=== PATIENT | female | born 1980 | race Two or more races ===

== ENCOUNTER 2025-02-06 08:52 | Inpatient (IN) | payer MEDICAID, OTHER ==
[2025-02-06] VITALS (21 sets, daily range): BP systolic 84–114; BP diastolic 47–77; PULSE 52–116; RESP 12–25; TEMP 97.8–98.7; O2SAT 94–97
[~2025-02-06] VITALS: Ht 165.1 cm; Wt 132.6 kg
--- NOTE | 2025-02-06 09:28 | ED.PDOC ---
GI ASSESSMENT HPI Comments This is a 44 year old female presenting to the ED with chief complaint of abdominal pain. Patient reports that she has been experiencing diffuse abdominal pain with associated dysuria and difficulty urinating since last night at 8pm. Patient relays that she has taken Tylenol and Morris with no relief noted. EMS states patient is tachycardic at a heart rate of 118 along with having a BG of 197. Patient denies any N/V/D, fever, chills, dizziness, chest pain, flank pain, or hematuria. Time Seen by MD: 09:25 Reviewed Notes: Nurses Notes, Ms Sql Developer Notes, Medications, Allergies Allergies: Coded Allergies: NO KNOWN ALLERGIES (Unverified , 02/06/25) Information Source: Patient, Emergency Med Personnel Mode of Arrival: EMS Timing: Hours Duration: Since onset Prehospital treatment: None Quality: Sharp Vomitus: None Stool: Normal Severity: Moderate Recent: None Recent Hx of: None Pain Location: Diffuse Modifying Factors: Nothing Associated sign and symptoms: Abdominal Pain Past Medical History PAST MEDICAL HISTORY: Anxiety, Asthma, Depression, DM, HTN Past Medical History (Other): Endocarditis Surgical History: Cholecystectomy Surgical History (Other): Aortic valve repair SENIOR GROUP MANAGER History: Denies all SENIOR GROUP MANAGER Hx, No Pertinent SENIOR GROUP MANAGER History Family History Family History: Reviewed,noncontributory to illness Social History Smoker: Non-Smoker Alcohol: Denies ETOH Use Drugs: Denies Drug Use Lives In: Home Constitutional: denies: chills, diaphoresis, fatigue, fever, malaise, sweats, weakness, others EENTM: denies: blurred vision, double vision, ear bleeding, ear discharge, ear drainage, ear pain, ear ringing, eye pain, eye redness, hearing loss, mouth pain, mouth swelling, nasal discharge, nose bleeding, nose congestion, nose pain, photophobia, tearing, throat pain, throat swelling, voice changes, others Respiratory: denies: cough, hemoptysis, orthopnea, SOB at rest, shortness of breath, SOB with excertion, stridor, wheezing, others Cardiovascular: denies: chest pain, dizzy spells, diaphoresis, Dyspnea on exertion, edema, irregular heart beat, left arm pain, lightheadedness, palpitations, PND, syncope, others Gastrointestinal: reports: abdominal pain; denies: abdomen distended, blood streaked bowels, constipated, diarrhea, dysphagia, difficulty swallowing, hematemesis, melena, nausea, poor appetite, poor fluid intake, rectal bleeding, rectal pain, vomiting, others Genitourinary: reports: dysuria, others (Difficulty urinating); denies: a bnormal vagina bleeding, burning, dyspareunia, flank pain, frequency, hematuria, incontinence, pain, , vagina discharge, urgency Neurological: denies: dizziness, fainting, headache, left sided numbness, left sided weakness, numbness, paresthesia, pre-existing deficit, right sided numbness, right sided weakness, seizure, speech problems, tingling, tremors, weakness, others Musculoskeletal: denies: back pain, gout, joint pain, joint swelling, muscle pain, muscle stiffness, neck pain, others Integumetry: denies: bruises, change in color, change in hair/nails, dryness, laceration, lesions, lumps, rash, wounds, others Allergic/Immunocompromised: denies: Difficulty Healing, Frequent Infections, Hives, Itching, others Hematologic/Lymphatic: denies: anemia, blood clots, easy bleeding, easy bruising, swollen glands, others Endocrine: denies: excessive hunger, excessive sweating, excessive thirst, excessive urination, flushing, intolerance to cold, intolerance to heat, unexplained weight gain, unexplained weight loss, others Psychiatric: denies: anxiety, bipolar disorder, depression, hopeless, panic disorder, schizophrenia, sleepless, suicidal, others All Other Systems: Reviewed and Negative Physical Exam General Appearance: Moderate Distress, No Apparent Distress, Obese HEENT: Normal ENT Inspection, Pharynx Normal, TMs Normal Neck: Full Range of Motion, Non-Tender, Normal, Normal Inspection Respiratory: Chest Non-Tender, Lungs Clear, No Accessory Muscle Use, No Respiratory Distress, Normal Breath Sounds Cardiovascular: No Edema, No JVD, No Murmur, No Gallop, Normal Peripheral Pulses, Regular Rate/Rhythm Breast Exam: Deferred Gastrointestinal: No Organomegaly, Non Tender, No Pulsatile Mass, Normal Bowel Sounds, Soft Genitalia: Deferred Pelvic: Deferred Rectal: Deferred Extremities: No calf tenderness, Normal capillary refill, Non-tender, No pedal edema, Other (Old right below-knee amputation) Musculoskeletal : Apperance: Normal Neurologic: Alert, photocopying equipment mechanic II-XII nml as Tested, No Motor Deficits, Normal Affect, Normal Mood, No Sensory Deficits Cerebellar Function: NOT DONE Reflexes: NOT DONE Skin: Dry, Normal Color, Warm Peripheral Pulses: 3+ Radial (R), 3+ Radial (L) Lymphatic: No Adenopathy Was a procedure done? Was a procedure done?: No GI differential Dx Differential Diagnosis: Constipation, Diverticular disease, Esophagitis, Gastritis/PUD, Gastroenteritis X-Ray, Labs, Meds, VS Vital Signs Date Time Temp Pulse Resp B/P (MAP) Pulse Ox O2 Delivery O2 Flow Rate FiO2 02/06/25 09:50 87 12 104/47 02/06/25 08:54 98.4 115 20 121/76 96 98.4 Lab Test 02/06/25 09:59 Range/Units White Blood Count 18.1 H 4.4-10.8 10^3/uL Red Blood Count 4.48 4.0-5.20 10^6/uL Hemoglobin 14.4 12.2-16.2 g/dL Hematocrit 43.2 36.0-46.0 % Mean Corpuscular Volume 96.4 80.0-100.0 fL Mean Corpuscular Hemoglobin 32.1 H 28.0-32.0 pg Mean Corpuscular Hemoglobin Concent 33.3 32.0-36.0 g/dL Red Cell Distribution Width 14.6 H 11.8-14.3 % Platelet Count 237 140-450 10^3/uL Mean Platelet Volume 10.4 6.9-10.8 fL Neutrophils (%) (Auto) 87.1 H 37.0-80.0 % Lymphocytes (%) (Auto) 8.0 L 10.0-50.0 % Monocytes (%) (Auto) 4.6 0.0-12.0 % Eosinophils (%) (Auto) 0.1 0.0-7.0 % Basophils (%) (Auto) 0.2 0.0-2.0 % Neutrophils # (Auto) 15.8 H 1.6-8.6 10 ^3/uL Lymphocytes # (Auto) 1.5 0.4-5.4 10 ^3/uL Monocytes # (Auto) 0.8 0-1.3 10 ^3/uL Eosinophils # (Auto) 0 0-0.8 10 ^3/uL Basophils # (Auto) 0 0-0.2 10 ^3/uL Nucleated Red Blood Cells 0.1 % Sodium Level Pending Potassium Level Pending Chloride Level Pending Carbon Dioxide Level Pending Anion Gap Pending Blood Urea Nitrogen Pending Creatinine Pending Glomerular Filtration Rate Calc Pending BUN/Creatinine Ratio Pending Serum Glucose Pending Calcium Level Pending Total Bilirubin Pending Aspartate Amino Transferase (AST) Pending Alanine Aminotransferase (ALT) Pending Alkaline Phosphatase Pending Troponin I High Sensitivity 11 </=34 ng/L Total Protein Pending Albumin Pending Current Medications Medications (Trade) Dose Ordered Sig/Mario Route Start Time Stop Time Status Last Admin Hydromorphone HCl (Dilaudid Injection) 1 mg ONCE ONCE IV 02/06/25 09:30 02/06/25 09:31 DC 02/06/25 09:50 Ondansetron HCl (Zofran) 4 mg ONCE ONCE IV 02/06/25 09:30 02/06/25 09:31 DC 02/06/25 09:41 Patient alert. Complaining of abdominal pain. Vitals stable. Answering questions. Blood pressure on the low side. WBC elevated pain Hemoglobin within normal limits. Hypotensive. Establish intravenous access. Was given fluids. Possible sepsis. Was given Zosyn. Was given Flagyl. Cardiac marker within normal limits. Explained to the patient. Continue monitoring. Time of 1ST Reevaluation: :23 Reevaluation 1ST: Unchanged Patient Education/Counseling: Diagnosis, Treatment Family Education/Counseling: No Family Present SEPSIS Sepsis Screen Physician Orders Comprehensive Metabolic Panel (02/06/25 09:28) Chest Portable (02/06/25 09:28) Urinalysis (02/06/25 09:28) Sodium Chloride 0.9% (02/06/25 10:00) Ct Ab Pel Wo Con-No Oral Or Iv (02/06/25 10:18) Blood Culture (02/06/25 10:18) Lactic Acid W/ Reflex Order (02/06/25 10:18) Piperacillin-Tazob 3.375gm (Zosyn 3.375g (02/06/25 10:30) Sodium Chloride 0.9% (02/06/25 10:30) Sodium Chloride 0.9% (02/06/25 10:30) Vital Signs Date Time Temp Pulse Resp B/P (MAP) Pulse Ox O2 Delivery O2 Flow Rate FiO2 02/06/25 09:50 87 12 104/47 02/06/25 08:54 98.4 115 20 121/76 96 98.4 Laboratory Tests Test 02/06/25 09:59 White Blood Count 18.1 10^3/uL (4.4-10.8) H Medications Medications Dose Ordered Sig/Mario Route Start Time Stop Time Status Last Admin Dose Admin Hydromorphone HCl 1 mg ONCE ONCE IV 02/06/25 09:30 02/06/25 09:31 DC 02/06/25 09:50 Ondansetron HCl 4 mg ONCE ONCE IV 02/06/25 09:30 02/06/25 09:31 DC 02/06/25 09:41 Departure 1 Departure Time of Disposition: 10:43 Impression: Primary Impression: Sepsis, unspecified organism Qualified Codes: A41.9 - Sepsis, unspecified organism Disposition: ADMITTED INPATIENT Admit to: Med Surg Condition: Guarded Critical Care Note Critical Care Time?: Yes (90 min-critical care time only) Stability Stability form required: No Heart Score Heart Score: Heart Score Response (Comments) Value History N/A 0 EKG N/A 0 Age N/A 0 Risk Factors N/A 0 Troponin N/A 0 Total 0 I personally scribed for ESPERANZA HARO MD ([email or web address]) on 02/06/25 at 09:28. Electronically submitted by David Murphy ([email or web address]). ESPERANZA HARO MD Feb 06, 2025 09:28
[2025-02-06] MEDS: ONDANSETRON HCL 4 MG/2 ML VIAL IV ONE (09:41)
[2025-02-06] MEDS: HYDROmorphone HCL 2 MG/ML VL/or syr IV ONE ×2 (09:50→15:24)
--- NOTE | 2025-02-06 10:02 | DVH ---
INDICATION: sob TECHNIQUE: Frontal view of the chest. COMPARISON: CT ANGIO CHEST - PULMONARY on DOS: 04/10/24, XR CHEST 1 VIEW on DOS: 04/10/24 FINDINGS: Cardiomegaly.. There is no evidence of pleural disease. Increased interstitial opacities. The bon y structures of the chest are intact without fracture. IMPRESSION: 1. Cardiomegaly with CHF.
[2025-02-06 10:26] LABS: Hematocrit 43.2 % (36.0-46.0); Hemoglobin 14.4 g/dL (12.2-16.2); Mean Corpuscular Hemoglobin 32.1 pg (28.0-32.0); Mean Corpuscular Volume 96.4 fL (80.0-100.0); Nucleated Red Blood Cells % 0.1 %
[2025-02-06] MEDS: SODIUM CHLORIDE 0.9% 1,000 ML IV ONE ×3 (10:30→12:16)
[2025-02-06 10:59] LABS: Alanine Aminotransferase 17 U/L (7-40); Albumin 4.0 g/dL (3.2-4.8); Alkaline Phosphatase 109 U/L (46-116); Anion Gap 8 (5-15); BUN/Creatinine Ratio 21.3 (10.0-20.0); Calcium 9.5 mg/dL (8.7-10.4); Carbon Dioxide 26 mmol/L (20-31); Chloride 102 mmol/L (98-107); Potassium 3.8 mmol/L (3.5-5.1); Sodium 136 mmol/L (136-145); Total Protein 7.0 g/dL (5.7-8.2)
[2025-02-06 11:00] LABS: Bilirubin, Total 0.5 mg/dL (0.2-1.0)
[2025-02-06 11:01] LABS: Blood Urea Nitrogen 23 mg/dL (9-23); Glucose 180 mg/dL (74-106)
[2025-02-06] MEDS: PIPERACILLIN-TAZOB 3.375GM 100 ML IV ONE (11:17)
--- NOTE | 2025-02-06 11:19 | DVH ---
Indication: colitis Technique: CT axial images of the abdomen and pelvis are obtained without contrast. Coronal and sagit sofia reformats were obtained. Comparison: CT ABD/PEL on DOS: 04/10/24 FINDINGS: There is limited interpretation of the abdomen and pelvis without administration of intravenous contr ast. Lung bases demonstrate atelectasis. Aortic valvular prosthesis. Adrenal glands demonstrate 1.4 cm right adrenal adenoma and 1.5 cm left adrenal adenoma. Spleen, panc reas unremarkable in shape. Cholecystectomy. Hepatic steatosis. The kidneys demonstrate no nephrolithiasis. [id number] right hydronephrosis with abrupt taperi ng of the proximal right ureter. Stomach is partially distended. Small bowel loops are normal in caliber. Moderate volume stool in the colon. Normal appendix. Bladder partially distended. Left ovarian/adnexal lesion measuring 6 cm. Lower uterine lesion measuri ng 6.2 x 5.9 cm. No free pelvic fluid. No inguinal lymphadenopathy. [id number] bilateral sacroiliac degenerative joint disease. Moderate to advanced lumbar degener ative disc disease. T10 butterfly vertebral body. IMPRESSION: Limited evaluation without contrast. [id number]-[id number] right hydronephrosis with abrupt tapering of the proximal right ureter. Recommend ur ology consultation to further evaluate exclude UPJ stricture, obstructing proximal ureteral lesion. Left ovarian/adnexal lesion measuring 6 cm. Recommend pelvic ultrasound to further evaluate. Lower uterine/ cervical lesion/mass measuring 6.2 cm. Recommend pelvic ultrasound and regional director of admissions consultati on. Moderate volume stool in the colon. Other findings as described
[2025-02-06] MEDS: KETOROLAC TROMETH 30 MG/ML 1ML VIAL IV ONE (12:22)
[2025-02-06] MEDS: NOREPINEPHRINE 8 MG/250ML KIT 250 ML IV SCH (14:48)
--- NOTE | 2025-02-06 14:58 | DVH ---
INDICATION: ovarymass TECHNIQUE: Multiple real-time grayscale transabdominal and transvaginal sonographic images along with color and duplex Doppler of the uterus and ovaries were obtained. COMPARISON: US TRANSVAGINAL US NON OB on DOS: 02/06/25, CT ABD/PEL W - IV on DOS: 04/10/24, CT ABD/PE L on DOS: 04/10/24 FINDINGS/IMPRESSION: Evaluation is extremely limited due to technique of exam. Bilateral ovaries are not well visualized due to body habitus. Uterus body is not well visualized. There is a solid mass in the lower uterine segment measuring 5.6 x 5.3 x 5.6 cm. Recommend gynecologic consultation with tissue sampling.
[2025-02-06 15:54] LABS: Urine Protein, UAD 1+ (Negative)
[2025-02-06] MEDS: KETOROLAC TROMETH 30 MG/ML 1ML VIAL IV PRN (17:17)
[2025-02-06] MEDS: HYDROcodone-ACET 5/325MG TAB PO PRN (18:08)
--- NOTE | 2025-02-06 18:14 | ECG ---
[facility] Test Date: 2025-02-06 Test Time: 16:24:12 Pat Name: TITO CESPEDES Department: [facility] ED Patient ID: [id number] Room: 0270T Gender: F [employer] Counsel: BENNETT : 1980 Requested By: ESPERANZA HARO Order Number: [id number] Reading MD: Quoc Rosales Measurements Intervals [place] Rate: 131 P: 0 ME: 308 QRS: -53 QRSD: 138 T: 0 QT: 226 QTc: 334 Interpretive Statements Sinus tachycardia Ventricular bigeminy Prolonged ME interval Probable left atrial enlargement Nonspecific IVCD with LAD LVH with secondary repolarization abnormality Posterior infarct, acute Anterolateral infarct, age indeterminate Baseline wander in lead(s) V5 Electronically Signed On 02-10-2025 14:51:37 PDT by Quoc Rosales Please click the below link to view image of tracing.
[2025-02-06] MEDS ORDERED: VANCOMYCIN PER PHARMACY 0 MG IV SCH (20:15)
--- NOTE | 2025-02-06 20:20 | DVHHP2 ---
History of Present Illness Reason for Visit: Abdominal pain History of Present Illness 44-year-old female presents for evaluation of abdominal pain. Patient reports a one day history of lower abdominal pain with associated dysuria, chills and difficulty urinating. Also reports mild dizziness. No chest pain or palpitations. Past Medical History Asthma, depression, diabetes mellitus, congestive heart failure Past Surgical History Pacemaker, aortic valve repair, cholecystectomy, right BKA Family History Noncontributory Smoke: No ALCOHOL: none Drugs: None Lives: with Family Review of Systems Review of Systems Review of systems are currently negative otherwise addressed in HPI. Allergies: Coded Allergies: NO KNOWN ALLERGIES (Unverified , 02/06/25) Medications Current Medications Medications Dose Ordered Sig/Mario Route Start Time Stop Time Status Last Admin Dose Admin Norepinephrine Bitartrate 250 ml @ 3.75 mls/hr Q24H IV 02/06/25 13:30 02/06/25 14:48 3.75 MLS/HR Cefepime HCl 50 ml @ 12.5 mls/hr Q12HR IV 02/06/25 22:00 Acetaminophen/ Hydrocodone Bitart 1 tab Q4HP PRN PO 02/06/25 13:30 02/06/25 18:08 1 TAB Ondansetron HCl 4 mg Q4HP PRN IV 02/06/25 13:30 Acetaminophen 650 mg Q6HP PRN PO 02/06/25 13:30 Ketorolac Tromethamine 15 mg Q6HPRN PRN IV 02/06/25 13:30 02/11/25 13:29 02/06/25 17:17 15 MG Exam Vital Signs Vital Signs Date Time Temp Pulse Resp B/P (MAP) Pulse Ox O2 Delivery O2 Flow Rate FiO2 02/06/25 19:06 89/30 02/06/25 19:00 55 26 94 02/06/25 17:16 98.6 98.6 02/06/25 09:44 Nasal Cannula* 2 28 Exam Gen: 44-year-old female in mild distress, morbidly obese Skin: Warm, dry, normal color and texture, no rash. HEENT: Normocephalic atraumatic, mucous membranes moist and pink. Neck: Cervical and supraclavicular nodes normal without enlargement, trachea is midline, thyroid gland is normal without masses. Pulmonary: Clear to auscultation and percussion bilaterally. Cardiac: Regular rate and rhythm. No murmur Abdomen: Soft, nontender, nondistended, bowel sounds present all 4 quadrants, no guarding, no rigidity, no organomegaly. Extremities: No cyanosis, clubbing, no edema Neuro: Cranial nerves II through XII grossly intact, normal affect and speech, no focal motor deficits. Labs/Xrays ORDERING PHYSICIAN: ESPERANZA HARO MD PROCEDURE(s): PELUS - PELVIC REASON: ovarymass ORDER NUMBER(s): [id number], ACCESSION NUMBER(s): [id number] INDICATION: ovarymass TECHNIQUE: Multiple real-time grayscale transabdominal and transvaginal sono graphic images along with color and duplex Doppler of the uterus and ovaries were obtained. COMPARISON: US TRANSVAGINAL US NON OB on DOS: 02/06/25, CT ABD/PEL W - IV on DOS: 04/10/24, CT ABD/PEL on DOS: 04/10/24 FINDINGS/IMPRESSION: Evaluation is extremely limited due to technique of exam. Bilateral ovaries are not well visualized due to body habitus. Uterus body is not well visualized. There is a solid mass in the lower uterine segment measuring 5.6 x 5.3 x 5.6 cm. Recommend gynecologic consultation with tissue sampling. RING PHYSICIAN: ESPERANZA HARO MD PROCEDURE(s): ABPL - CT AB PEL WO CON-NO ORAL OR IV REASON: colitis ORDER NUMBER(s): [id number], ACCESSION NUMBER(s): [id number] Indication: colitis Technique: CT axial images of the abdomen and pelvis are obtained without contrast. Coronal and sagittal reformats were obtained. Comparison: CT ABD/PEL on DOS: 04/10/24 FINDINGS: There is limited interpretation of the abdomen and pelvis without administration of intravenous contrast. Lung bases demonstrate atelectasis. Aortic valvular prosthesis. Adrenal glands demonstrate 1.4 cm right adrenal adenoma and 1.5 cm left adrenal adenoma. Spleen, pancreas unremarkable in shape. Cholecystectomy. Hepatic steatosis. The kidneys demonstrate no nephrolithiasis. [id number] right hydronephrosis with abrupt tapering of the proximal right ureter. Stomach is partially distended. Small bowel loops are normal in caliber. Moderate volume stool in the colon. Normal appendix. Bladder partially distended. Left ovarian/adnexal lesion measuring 6 cm. Lower uterine lesion measuring 6.2 x 5.9 cm. No free pelvic fluid. No inguinal lymphadenopathy. Jjlm-ck-ocpxtnly bilateral sacroiliac degenerative joint disease. Moderate to advanced lumbar degenerative disc disease. T10 butterfly vertebral body. IMPRESSION: Limited evaluation without contrast. Hefe-bm-krwifqin right hydronephrosis with abrupt tapering of the proximal right ureter. Recommend urology consultation to further evaluate exclude UPJ stricture, obstructing proximal ureteral lesion. Left ovarian/adnexal lesion measuring 6 cm. Recommend pelvic ultrasound to further evaluate. Lower uterine/ cervical lesion/mass measuring 6.2 cm. Recommend pelvic ultrasound and mortgage banker consultation. Moderate volume stool in the colon. Other findings as described Labs Test 02/06/25 17:37 02/06/25 16:17 02/06/25 15:29 02/06/25 12:34 Range/Units Troponin I High Sensitivity 16 </=34 ng/L POC Glucose 145 H 70-106 mg/dl Urine Color Light-gallo Yellow Urine Clarity Ex.turbid Clear Urine pH 5.5 5.0-9.0 Urine Specific [place] 1.026 1.001-1.035 Urine Protein 1+ H Negative Urine Ketones Negative Negative Urine Blood 2+ H Negative /uL Urine Nitrite Negative Negative Urine Bilirubin Negative Negative Urine Urobilinogen Normal Negative mg/dL Urine Leukocyte Esterase 3+ Negative /uL Urine RBC 176 0 - 4 /hpf Urine Microscopic WBC 376 H 0-5 /HPF Urine Squamous Epithelial Cells Mod <5 /hpf Urine Bacteria Few H None Seen /hpf Urine Glucose 4+ H Normal mg/dL Lactic Acid Level 1.7 0.4-2.0 mmol/L Test 02/06/25 09:59 Range/Units White Blood Count 18.1 H 4.4-10.8 10^3/uL Red Blood Count 4.48 4.0-5.20 10^6/uL Hemoglobin 14.4 12.2-16.2 g/dL Hematocrit 43.2 36.0-46.0 % Mean Corpuscular Volume 96.4 80.0-100.0 fL Mean Corpuscular Hemoglobin 32.1 H 28.0-32.0 pg Mean Corpuscular Hemoglobin Concent 33.3 32.0-36.0 g/dL Red Cell Distribution Width 14.6 H 11.8-14.3 % Platelet Count 237 140-450 10^3/uL Mean Platelet Volume 10.4 6.9-10.8 fL Neutrophils (%) (Auto) 87.1 H 37.0-80.0 % Lymphocytes (%) (Auto) 8.0 L 10.0-50.0 % Monocytes (%) (Auto) 4.6 0.0-12.0 % Eosinophils (%) (Auto) 0.1 0.0-7.0 % Basophils (%) (Auto) 0.2 0.0-2.0 % Neutrophils # (Auto) 15.8 H 1.6-8.6 10 ^3/uL Lymphocytes # (Auto) 1.5 0.4-5.4 10 ^3/uL Monocytes # (Auto) 0.8 0-1.3 10 ^3/uL Eosinophils # (Auto) 0 0-0.8 10 ^3/uL Basophils # (Auto) 0 0-0.2 10 ^3/uL Nucleated Red Blood Cells 0.1 % Sodium Level 136 136-145 mmol/L Potassium Level 3.8 3.5-5.1 mmol/L Chloride Level 102 98-107 mmol/L Carbon Dioxide Level 26 20-31 mmol/L Anion Gap 8 5-15 Blood Urea Nitrogen 23 9-23 mg/dL Creatinine 1.08 H 0.550-1.02 mg/dL Glomerular Filtration Rate Calc 65 >90 mL/min BUN/Creatinine Ratio 21.3 H 10.0-20.0 Serum Glucose 180 H 74-106 mg/dL Calcium Level 9.5 8.7-10.4 mg/dL Total Bilirubin 0.5 0.2-1.0 mg/dL Aspartate Amino Transferase (AST) 14 13-40 U/L Alanine Aminotransferase (ALT) 17 7-40 U/L Alkaline Phosphatase 109 46-116 U/L B-Type Natriuretic Peptide 291.64 0-100 pg/mL Total Protein 7.0 5.7-8.2 g/dL Albumin 4.0 3.2-4.8 g/dL SEPSIS Sepsis Screen Date sepsis recognized/suspect: Feb 06, 2025 Time Sepsis recognized/suspect: 0930 Recent Procedure: No On Antibiotic Therapy: No Respiratory Rate >20: No Heart Rate >90: No Temp<36 C (96.8 F) or >38.3 C: No SBP <90 or MAP <65 mmHG: No New Acute Mental Status Change: No Is the patient on CPAP, BIPAP,: No Physician Orders Pelvic (02/06/25 13:20) * Urology Consult (02/06/25 13:20) Norepinephrine 8 Mg/250ml Kit (Levophed) (02/06/25 13:30) Cefepime 1gm/50ml (Maxipime 1gm/50ml) (02/06/25 22:00) Basic Metabolic Panel (02/07/25 04:00) Admit (02/06/25 13:17) Hydrocodone-Acet 5/325mg Tab ([place] 5/32 (02/06/25 13:30) Ondansetron Hcl (Zofran) (02/06/25 13:30) Complete Blood Count (02/07/25 04:00) Condition: Stable (02/06/25 13:17) Acetaminophen Tablet (Tylenol Tablet) (02/06/25 13:30) Bedrest With Bathroom Privileg (02/06/25 13:17) Ketorolac Injection (Toradol Injection) (02/06/25 13:30) Transvaginal Us Non Ob (02/06/25 ) Communication Order (02/06/25 17:03) Urine Bacterial Culture (02/06/25 20:04) Vancomycin Per Pharmacy (02/06/25 20:15) Vital Signs Date Time Temp Pulse Resp B/P (MAP) Pulse Ox O2 Delivery O2 Flow Rate FiO2 02/06/25 19:06 89/30 02/06/25 19:00 100/38 02/06/25 19:00 55 26 100/38 (58) 94 02/06/25 18:45 58 26 113/44 (67) 95 02/06/25 18:30 56 21 85/22 (43) 95 02/06/25 18:15 59 12 168/151 (157) 96 02/06/25 18:00 62 11 117/54 (75) 96 02/06/25 18:00 117/54 02/06/25 17:45 51 17 113/43 (66) 96 02/06/25 17:30 58 12 103/41 (61) 96 02/06/25 17:16 98.6 53 22 108/45 (66) 96 98.6 02/06/25 17:16 119/47 02/06/25 17:06 69/44 02/06/25 17:01 58 17 134/51 (78) 99 02/06/25 17:00 134/51 02/06/25 16:45 55 29 111/46 (67) 96 02/06/25 16:31 57 12 102/46 (64) 95 02/06/25 16:30 131 02/06/25 16:16 54 12 108/44 (65) 96 02/06/25 16:00 113/40 02/06/25 16:00 56 12 113/40 (64) 92 02/06/25 15:45 98.6 54 23 111/60 (77) 95 98.6 02/06/25 15:30 98.6 51 14 86/42 (57) 96 98.6 02/06/25 15:24 55 32 122/58 02/06/25 15:15 56 20 137/54 (81) 96 02/06/25 15:00 59 16 97/57 (70) 97 02/06/25 15:00 139/60 02/06/25 14:48 65/28 02/06/25 14:46 54 13 65/28 (40) 95 02/06/25 13:00 54 18 81/40 (54) 98 Laboratory Tests Test 02/06/25 09:59 02/06/25 12:34 White Blood Count 18.1 10^3/uL (4.4-10.8) H Lactic Acid Level 1.7 mmol/L (0.4-2.0) Medications Medications Dose Ordered Sig/Mario Route Start Time Stop Time Status Last Admin Dose Admin Acetaminophen/ Hydrocodone Bitart 1 tab Q4HP PRN PO 02/06/25 13:30 02/06/25 18:08 1 TAB Hydromorphone HCl 1 mg ONCE ONCE IV 02/06/25 09:30 02/06/25 09:31 DC 02/06/25 09:50 1 MG Hydromorphone HCl 1 mg ONCE ONCE IV 02/06/25 11:15 02/06/25 11:35 DC 02/06/25 15:24 1 MG Ketorolac Tromethamine 15 mg Q6HPRN PRN IV 02/06/25 13:30 02/11/25 13:29 02/06/25 17:17 15 MG Ketorolac Tromethamine 30 mg ONCE ONCE IV 02/06/25 12:15 02/06/25 12:16 DC 02/06/25 12:22 30 MG Metronidazole 100 ml @ 100 mls/hr ONCE ONCE IV 02/06/25 10:45 02/06/25 11:44 DC 02/06/25 12:46 100 MLS/HR Norepinephrine Bitartrate 250 ml @ 3.75 mls/hr Q24H IV 02/06/25 13:30 02/06/25 14:48 3.75 MLS/HR Ondansetron HCl 4 mg ONCE ONCE IV 02/06/25 09:30 02/06/25 09:31 DC 02/06/25 09:41 4 MG Piperacillin Sod/ Tazobactam Sod 100 ml @ 100 mls/hr ONCE ONCE IV 02/06/25 10:30 02/06/25 11:29 DC 02/06/25 11:17 100 MLS/HR Sodium Chloride 1,000 ml @ 1,000 mls/hr Q1H ONCE IV 02/06/25 10:00 02/06/25 10:59 DC 02/06/25 11:15 1,000 MLS/HR Sodium Chloride 1,000 ml @ 1,000 mls/hr Q1H ONCE IV 02/06/25 10:30 02/06/25 11:29 DC 02/06/25 12:16 1,000 MLS/HR Assessment/Plan Assessment/Plan Assessment Sepsis Urinary tract infection Ureter stricture Hypertension Acute kidney injury Pelvic mass Morbid obesity Plan Admit the patient to ICU to the hospitalist Cefepime/vancomycin Urology consultation OBGYN consultation Continue treatment per orders Total critical care time excluding procedures performed this 55 minutes. Plan discussed with: Patient My Orders Orders - SHERI SPIVEY AGACNP Procedure Category Date Status Time Cefepime 1gm/50ml PHA 02/06/25 In Process (Maxipime 1gm/50ml) 22:00 Basic Metabolic Panel LAB 02/07/25 Verified 04:00 Admit ADMIT 02/06/25 Transmitted 13:17 Hydrocodone-Acet PHA 02/06/25 In Process 5/325mg Tab ([place] 13:30 Ondansetron Hcl PHA 02/06/25 In Process (Zofran) 13:30 Complete Blood Count LAB 02/07/25 Verified 04:00 Condition: Stable TAVARES 02/06/25 In Process 13:17 Acetaminophen Tablet PHA 02/06/25 In Process (Tylenol Tablet) 13:30 Bedrest With Bathroom TAVARES 02/06/25 In Process Privileg 13:17 Ketorolac Injection PHA 02/06/25 In Process (Toradol Injection) 13:30 Transvaginal Us Non Ob US 02/06/25 Resulted Communication Order ORDERS 02/06/25 Transmitted 17:03 Urine Bacterial DAHIANA 02/06/25 Uncollected Culture 20:04 Vancomycin Per PHA 02/06/25 Logged Pharmacy 20:15 Date of Service: Feb 06, 2025 Billing Provider: SHERI SPIVEY Common Visit Codes: [id number] CARE 30-74 MIN SHERI SPIVEY Feb 06, 2025 20:20
[2025-02-06] MEDS: VANCOMYCIN 1GM/250ML KIT 250 ML IV SCH (22:09)
[2025-02-06] MEDS: CEFEPIME 1GM/50ML 50 ML IV SCH (23:45)
[2025-02-07] VITALS (38 sets, daily range): BP systolic 95–144; BP diastolic 43–84; PULSE 54–116; RESP 16–98; TEMP 97.9–98.8; O2SAT 91–100
[2025-02-07 07:58] LABS: Hematocrit 39.3 % (36.0-46.0); Hemoglobin 13.1 g/dL (12.2-16.2); Mean Corpuscular Hemoglobin 32.1 pg (28.0-32.0); Mean Corpuscular Volume 96.3 fL (80.0-100.0); Nucleated Red Blood Cells % 0.1 %
[2025-02-07 08:01] LABS: Chloride 105 mmol/L (98-107); Potassium 3.6 mmol/L (3.5-5.1)
[2025-02-07 08:02] LABS: Anion Gap 7 (5-15); Carbon Dioxide 23 mmol/L (20-31)
[2025-02-07 08:07] LABS: BUN/Creatinine Ratio 18.3 (10.0-20.0); Blood Urea Nitrogen 19 mg/dL (9-23)
[2025-02-07 08:08] LABS: Calcium 8.3 mg/dL (8.7-10.4); Glucose 190 mg/dL (74-106); Sodium 135 mmol/L (136-145)
[2025-02-07] MEDS: ONDANSETRON HCL 4 MG/2 ML VIAL IV PRN (09:28)
[2025-02-07] MEDS: VANCOMYCIN 1.5GM/250ML 250 ML IV SCH (10:43)
[2025-02-07] MEDS: MORPHINE SULFATE INJ 2 MG/ml SYRG IV PRN (15:40)
[2025-02-07] MEDS ORDERED: DEXTROSE (50%) 50ML SYRG IV PRN (15:45)
--- NOTE | 2025-02-07 16:12 | DVHINCON2 ---
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 Allergies: Coded Allergies: NO KNOWN ALLERGIES (Unverified , 02/06/25) Current Medications Current Medications Medications (Trade) Dose Ordered Sig/Mario Route PRN Reason Start Time Stop Time Status Last Admin Cefepime HCl 50 ml @ 12.5 mls/hr Q12HR IV 02/06/25 22:00 02/07/25 10:43 Vancomycin HCl 0 ml @ 0 mls/hr PER PHARMACY IV 02/06/25 20:15 Vancomycin HCl 250 ml @ 250 mls/hr Q1H IV 02/06/25 21:45 02/06/25 23:44 DC 02/06/25 22:54 Vancomycin HCl 250 ml @ 166.667 mls/hr Q12H IV 02/07/25 10:00 02/07/25 10:43 Morphine Sulfate 2 mg Q4HPRN PRN IV SEVERE PAIN (7-10 PAIN SCALE) 02/07/25 14:00 02/07/25 15:40 Diagnostic Test (Pha) (Accu-Chek Comfort Curve T) 1 strip Q6HR 02/07/25 18:00 Insulin Human Regular (InsuLIN R) Q6HR SC 02/07/25 18:00 Dextrose 50 ml UD PRN IV Blood Sugar LESS THAN 60 02/07/25 15:45 Review of Systems Constitutional: no fever, chill, weight loss HEENT: no eye pain, no hearing loss, no oral lesion, no scleral icterus Heart: no chest pain, no chest pressure Lung: no cough, no dyspnea with exertion Abdomen: see HPI : no pain with urination, normal appearing urine Musculoskeletal: no joint pain, no muscle pain Neurological: no seizure, no loss of sensation, no weakness in extremities Pysch: no depression, no anxiety Derm: no rash, no jaundice Vital Signs Vital Signs Date Time Temp Pulse Resp B/P (MAP) Pulse Ox O2 Delivery O2 Flow Rate FiO2 02/07/25 15:40 57 15 142/58 02/07/25 14:00 94 02/07/25 12:00 98.1 98.1 02/07/25 08:32 Nasal Cannula* 2 28 Physical Exam HEENT: NL NECK: NL CARDIAC: RRR PULMONARY: CTA ABDOMEN: OBESE,NT BREASTS -SYMMET,NO MASSES PELVIC- EXT GENT WNL,VAG NO BLEEDING ATROPHIC,CX NL,UTERUS UNABLE TO ASSES SIZE DUE TO OBESITY Labs/Diagnostic Data Labs Test 02/07/25 07:42 02/06/25 17:37 02/06/25 16:17 02/06/25 15:29 Range/Units White Blood Count 14.7 H 4.4-10.8 10^3/uL Red Blood Count 4.08 4.0-5.20 10^6/uL Hemoglobin 13.1 12.2-16.2 g/dL Hematocrit 39.3 36.0-46.0 % Mean Corpuscular Volume 96.3 80.0-100.0 fL Mean Corpuscular Hemoglobin 32.1 H 28.0-32.0 pg Mean Corpuscular Hemoglobin Concent 33.3 32.0-36.0 g/dL Red Cell Distribution Width 14.8 H 11.8-14.3 % Platelet Count 194 140-450 10^3/uL Mean Platelet Volume 10.0 6.9-10.8 fL Neutrophils (%) (Auto) 88.1 H 37.0-80.0 % Lymphocytes (%) (Auto) 6.7 L 10.0-50.0 % Monocytes (%) (Auto) 4.6 0.0-12.0 % Eosinophils (%) (Auto) 0.3 0.0-7.0 % Basophils (%) (Auto) 0.3 0.0-2.0 % Neutrophils # (Auto) 13.0 H 1.6-8.6 10 ^3/uL Lymphocytes # (Auto) 1.0 0.4-5.4 10 ^3/uL Monocytes # (Auto) 0.7 0-1.3 10 ^3/uL Eosinophils # (Auto) 0 0-0.8 10 ^3/uL Basophils # (Auto) 0 0-0.2 10 ^3/uL Nucleated Red Blood Cells 0.1 % Sodium Level 135 L 136-145 mmol/L Potassium Level 3.6 3.5-5.1 mmol/L Chloride Level 105 98-107 mmol/L Carbon Dioxide Level 23 20-31 mmol/L Anion Gap 7 5-15 Blood Urea Nitrogen 19 9-23 mg/dL Creatinine 1.04 H 0.550-1.02 mg/dL Glomerular Filtration Rate Calc 68 >90 mL/min BUN/Creatinine Ratio 18.3 10.0-20.0 Serum Glucose 190 H 74-106 mg/dL Calcium Level 8.3 L 8.7-10.4 mg/dL Random Vancomycin Level 19.7 H 5-10 ug/mL Troponin I High Sensitivity 16 </=34 ng/L POC Glucose 145 H 70-106 mg/dl Urine Color Light-gallo Yellow Urine Clarity Ex.turbid Clear Urine pH 5.5 5.0-9.0 Urine Specific [place] 1.026 1.001-1.035 Urine Protein 1+ H Negative Urine Ketones Negative Negative Urine Blood 2+ H Negative /uL Urine Nitrite Negative Negative Urine Bilirubin Negative Negative Urine Urobilinogen Normal Negative mg/dL Urine Leukocyte Esterase 3+ Negative /uL Urine RBC 176 0 - 4 /hpf Urine Microscopic WBC 376 H 0-5 /HPF Urine Squamous Epithelial Cells Mod <5 /hpf Urine Bacteria Few H None Seen /hpf Urine Glucose 4+ H Normal mg/dL Test 02/06/25 12:34 02/06/25 09:59 Range/Units Lactic Acid Level 1.7 0.4-2.0 mmol/L Total Bilirubin 0.5 0.2-1.0 mg/dL Aspartate Amino Transferase (AST) 14 13-40 U/L Alanine Aminotransferase (ALT) 17 7-40 U/L Alkaline Phosphatase 109 46-116 U/L B-Type Natriuretic Peptide 291.64 0-100 pg/mL Total Protein 7.0 5.7-8.2 g/dL Albumin 4.0 3.2-4.8 g/dL Microbiology Date/Time Source Procedure Growth Status 02/07/25 04:03 Nose MRSA Screen - Final Complete 02/06/25 12:51 Blood Blood Culture - Preliminary NO GROWTH AFTER 24 HOURS OF INCUBATION. Resulted Primary Diagnosis ABD PAIN LOWER UTERINE SEGMENT MASS PROBABLE FIBROID CAN NOT R/O CA -NEEDS TO FU WITH MACHINE III COREMAKER SHE IS SUPPOSED TO GO TO [facility] SHE HAS BEEN UNDER MACHINE III COREMAKER CARE AT [facility] Plan FU OUT PT SHANITA AFTER DC RE MASS IN UTERUS WILL SIGN OFF THANKJ YOU Plan discussed with: Patient Visit Coding OBGYN Date of Service: Feb 07, 2025 Billing Provider: JEFFY VALENTINE DO [employer] Common Visit Codes: [id number] OBS CARE (HIGH) [employer] Consultation Codes: [id number] CONSULT <110MIN JEFFY VALENTINE DO Feb 07, 2025 16:12
[2025-02-07] MEDS ORDERED: METO25TA93 PO (16:16)
[2025-02-07] MEDS ORDERED: TORS20TA20 PO (16:16)
[2025-02-07] MEDS ORDERED: GABA-1250 PO (16:16)
[2025-02-07] MEDS ORDERED: SACU1TAB PO (16:16)
[2025-02-07] MEDS ORDERED: SPIR50TA5 PO (16:16)
[2025-02-07] MEDS ORDERED: TIRZ7.5I2 SC (16:16)
[2025-02-07] MEDS ORDERED: ATOR-507 PO (16:16)
[2025-02-07] MEDS ORDERED: ACE650RS PR (16:16)
[2025-02-07] MEDS ORDERED: WARF-111 PO (16:16)
[2025-02-07] MEDS ORDERED: ALBU2TAB11 PO (16:16)
[2025-02-07] MEDS ORDERED: FOLI-119 PO (16:16)
[2025-02-07] MEDS ORDERED: INSU1INJ19 SC (16:16)
[2025-02-07] MEDS ORDERED: FLUO-125 PO (16:16)
--- NOTE | 2025-02-07 16:52 | DVHPN2 ---
Subjective I am assuming the care of the patient from today onwards. Patient was found to have uterine mass currently waiting for gynecology recommendations. Changes from previous H/P or p: No Changes Objective Vitals Vital Signs Date Time Temp Pulse Resp B/P (MAP) Pulse Ox O2 Delivery O2 Flow Rate FiO2 02/07/25 16:30 63 98 98 Nasal Cannula* 2 28 02/07/25 15:40 142/58 02/07/25 12:00 98.1 98.1 Intake/Output Intake and Output 02/07/25 07:00 Intake Total 3001.016 ml Output Total 650 ml Balance 2351.016 ml Intake Oral 200 ml IV Total 2801.016 ml Output Urine Total 650 ml # Voids 4 Exam HEENT pupils are reactive Neck is supple CV is S1-S2 regular rate and rhythm Respiratory diminished breath sounds bases GI positive bowel sound Extremity no edema [employer]OL CLERK no motor deficit Right lower extremity BKA Medications Current Medications Medications Dose Ordered Sig/Mario Route Start Time Stop Time Status Last Admin Dose Admin Cefepime HCl 50 ml @ 12.5 mls/hr Q12HR IV 02/06/25 22:00 02/07/25 10:43 12.5 MLS/HR Ondansetron HCl 4 mg Q4HP PRN IV 02/06/25 13:30 02/07/25 15:40 4 MG Acetaminophen 650 mg Q6HP PRN PO 02/06/25 13:30 Ketorolac Tromethamine 15 mg Q6HPRN PRN IV 02/06/25 13:30 02/11/25 13:29 02/07/25 09:28 15 MG Vancomycin HCl 0 ml @ 0 mls/hr PER PHARMACY IV 02/06/25 20:15 Vancomycin HCl 250 ml @ 166.667 mls/hr Q12H IV 02/07/25 10:00 02/07/25 10:43 166.667 MLS/HR Morphine Sulfate 2 mg Q4HPRN PRN IV 02/07/25 14:00 02/07/25 15:40 2 MG Diagnostic Test (Pha) 1 strip Q6HR 02/07/25 18:00 Insulin Human Regular Q6HR SC 02/07/25 18:00 Dextrose 50 ml UD PRN IV 02/07/25 15:45 Laboratory Results Laboratory Tests 02/07/25 07:42 Chemistry Test 02/07/25 07:42 Calcium Level 8.3 mg/dL (8.7-10.4) L Urinalysis Test 02/06/25 15:29 Urine Color Light-gallo (Yellow) Urine Clarity Ex.turbid (Clear) Urine pH 5.5 (5.0-9.0) Urine Specific [place] 1.026 (1.001-1.035) Urine Protein 1+ (Negative) H Urine Ketones Negative (Negative) Urine Blood 2+ /uL (Negative) H Urine Nitrite Negative (Negative) Urine Bilirubin Negative (Negative) Urine Urobilinogen Normal mg/dL (Negative) Urine Leukocyte Esterase 3+ /uL (Negative) Urine RBC 176 /hpf (0 - 4) Urine Microscopic WBC 376 /HPF (0-5) H Urine Squamous Epithelial Cells Mod /hpf (<5) Urine Bacteria Few /hpf (None Seen) H Urine Glucose 4+ mg/dL (Normal) H Microbiology Microbiology Date/Time Source Procedure Growth Status 02/07/25 04:03 Nose MRSA Screen - Final Complete 02/06/25 12:51 Blood Blood Culture - Preliminary NO GROWTH AFTER 24 HOURS OF INCUBATION. Resulted Assessment/Plan Assessment/Plan 44-year-old female with a known history of congestive heart failure, diabetes mellitus type 2, hypertension, morbid obesity classIII, anxiety and depression disorder who initially presented to the hospital with a abdominal pain found to have 1. Sepsis secondary to urinary tract infection 2. Ureteral stricture 3. Uterine mass rule out malignancy 4. Acute kidney injury suspected secondary to vasomotor nephropathy 5. Diabetes mellitus type 2 6. Hypertension 7. Morbid obesity classIII 8. Congestive heart failure without any exacerbation -IV antibiotics gynecology consultation Plan discussed with: Patient My Orders Orders - FLORINDA PACHECO MD Procedure Category Date Status Time Morphine Sulfate PHA 02/07/25 In Process Injection 14:00 Transfer Orders XFER 02/07/25 Transmitted 14:15 Glucose Blood PHA 02/07/25 In Process (Accu-Chek Comfort 18:00 Insulin R (Human) PHA 02/07/25 In Process (Insulin R) 18:00 Dextrose 50% Syringe PHA 02/07/25 In Process 15:45 Date of Service: Feb 07, 2025 Billing Provider: FLORINDA PACHECO MD Common Visit Codes: [id number] INP/OBS CARE(HIGH) FLORINDA PACHECO MD Feb 07, 2025 16:52
[2025-02-07] MEDS: ACCU-CHEK COMFORT CURVE STRIP VI SCH (18:40)
[2025-02-07] MEDS: InsuLIN REG 1unit/0.01ml Soln (100units/ml) SC SCH (18:40)
[2025-02-07 22:27] LABS: Hematocrit 32.5 % (36.0-46.0); Hemoglobin 10.9 g/dL (12.2-16.2)
[2025-02-08] VITALS (9 sets, daily range): BP systolic 105–141; BP diastolic 52–77; PULSE 51–63; RESP 17–96; TEMP 97.5–98.9; O2SAT 96–100
[2025-02-08 07:27] LABS: Hematocrit 31.8 % (36.0-46.0); Hemoglobin 10.8 g/dL (12.2-16.2); Mean Corpuscular Hemoglobin 32.9 pg (28.0-32.0); Mean Corpuscular Volume 96.5 fL (80.0-100.0); Nucleated Red Blood Cells % 0.0 %
--- NOTE | 2025-02-08 17:49 | DVHPN2 ---
Subjective Patient has a vaginal bleeding currently on Provera. Gynecology follow up. 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 Right lower extremity BKA Medications Current Medications Medications Dose Ordered Sig/Mario Route Start Time Stop Time Status Last Admin Dose Admin Cefepime HCl 50 ml @ 12.5 mls/hr Q12HR IV 02/06/25 22:00 02/08/25 09:12 12.5 MLS/HR Ondansetron HCl 4 mg Q4HP PRN IV 02/06/25 13:30 02/07/25 15:40 4 MG Acetaminophen 650 mg Q6HP PRN PO 02/06/25 13:30 Ketorolac Tromethamine 15 mg Q6HPRN PRN IV 02/06/25 13:30 02/11/25 13:29 02/08/25 04:19 15 MG Vancomycin HCl 0 ml @ 0 mls/hr PER PHARMACY IV 02/06/25 20:15 Morphine Sulfate 2 mg Q4HPRN PRN IV 02/07/25 14:00 02/08/25 15:29 2 MG Diagnostic Test (Pha) 1 strip Q6HR 02/07/25 18:00 02/08/25 17:20 1 STRIP Insulin Human Regular Q6HR SC 02/07/25 18:00 02/08/25 17:41 6 UNITS Dextrose 50 ml UD PRN IV 02/07/25 15:45 Medroxyprogesterone Acetate 10 mg DAILY PO 02/08/25 05:30 02/08/25 09:05 10 MG Laboratory Results Laboratory Tests 02/07/25 07:42 02/08/25 04:55 Urinalysis Test 02/06/25 15:29 Urine Color Light-gallo (Yellow) Urine Clarity Ex.turbid (Clear) Urine pH 5.5 (5.0-9.0) Urine Specific [place] 1.026 (1.001-1.035) Urine Protein 1+ (Negative) H Urine Ketones Negative (Negative) Urine Blood 2+ /uL (Negative) H Urine Nitrite Negative (Negative) Urine Bilirubin Negative (Negative) Urine Urobilinogen Normal mg/dL (Negative) Urine Leukocyte Esterase 3+ /uL (Negative) Urine RBC 176 /hpf (0 - 4) Urine Microscopic WBC 376 /HPF (0-5) H Urine Squamous Epithelial Cells Mod /hpf (<5) Urine Bacteria Few /hpf (None Seen) H Urine Glucose 4+ mg/dL (Normal) H Microbiology Microbiology Date/Time Source Procedure Growth Status 02/07/25 04:03 Nose MRSA Screen - Final Complete 02/06/25 12:51 Blood Blood Culture - Preliminary NO GROWTH AFTER 48 HOURS OF INCUBATION. Resulted 02/06/25 09:28 Voided Urine Urine Culture - Preliminary Resulted Assessment/Plan Assessment/Plan 44-year-old female with a known history of congestive heart failure, diabetes mellitus type 2, hypertension, morbid obesity classIII, anxiety and depression disorder who initially presented to the hospital with a abdominal pain found to have 1. Vaginal bleeding currently on Provera, monitor H&H 2. Ureteral stricture 3. Uterine mass rule out malignancy 4. Acute kidney injury suspected secondary to vasomotor nephropathy 5. Diabetes mellitus type 2 6. Hypertension 7. Morbid obesity classIII 8. Congestive heart failure without any exacerbation 9. Sepsis secondary to UTI -continue Provera -IV antibiotics gynecology consultation appreciated Plan discussed with: Patient My Orders Orders - FLORINDA PACHECO MD Procedure Category Date Status Time Basic Metabolic Panel LAB 02/09/25 Verified 04:00 Date of Service: Feb 08, 2025 Billing Provider: FLORINDA PACHECO MD Common Visit Codes: [id number] INP/OBS CARE(HIGH) FLORINDA PACHECO MD Feb 08, 2025 17:49
[2025-02-09] VITALS (8 sets, daily range): BP systolic 94–128; BP diastolic 58–79; PULSE 52–118; RESP 17–21; TEMP 97–98.6; O2SAT 93–99
[2025-02-09 06:40] LABS: Hematocrit 31.0 % (36.0-46.0); Hemoglobin 10.5 g/dL (12.2-16.2); Mean Corpuscular Hemoglobin 33.1 pg (28.0-32.0); Mean Corpuscular Volume 97.4 fL (80.0-100.0); Nucleated Red Blood Cells % 0.0 %
[2025-02-09 06:44] LABS: Anion Gap 10 (5-15); Carbon Dioxide 23 mmol/L (20-31); Chloride 100 mmol/L (98-107); Potassium 4.0 mmol/L (3.5-5.1)
[2025-02-09 06:51] LABS: BUN/Creatinine Ratio 34.8 (10.0-20.0); Blood Urea Nitrogen 40 mg/dL (9-23); Calcium 8.5 mg/dL (8.7-10.4); Glucose 211 mg/dL (74-106); Sodium 133 mmol/L (136-145)
[2025-02-09] MEDS: VANCOMYCIN 500mg/100mL 100 ML IV SCH (13:52)
--- NOTE | 2025-02-09 15:53 | DVHPN2 ---
Subjective Patient has a vaginal bleeding currently on Provera. Gynecology follow up. 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 Right lower extremity BKA Medications Current Medications Medications Dose Ordered Sig/Mario Route Start Time Stop Time Status Last Admin Dose Admin Cefepime HCl 50 ml @ 12.5 mls/hr Q12HR IV 02/06/25 22:00 02/09/25 09:20 12.5 MLS/HR Ondansetron HCl 4 mg Q4HP PRN IV 02/06/25 13:30 02/07/25 15:40 4 MG Acetaminophen 650 mg Q6HP PRN PO 02/06/25 13:30 Ketorolac Tromethamine 15 mg Q6HPRN PRN IV 02/06/25 13:30 02/11/25 13:29 02/08/25 04:19 15 MG Vancomycin HCl 0 ml @ 0 mls/hr PER PHARMACY IV 02/06/25 20:15 Morphine Sulfate 2 mg Q4HPRN PRN IV 02/07/25 14:00 02/09/25 15:19 2 MG Diagnostic Test (Pha) 1 strip Q6HR 02/07/25 18:00 02/09/25 12:10 1 STRIP Insulin Human Regular Q6HR SC 02/07/25 18:00 02/09/25 12:17 9 UNITS Dextrose 50 ml UD PRN IV 02/07/25 15:45 Medroxyprogesterone Acetate 10 mg DAILY PO 02/08/25 05:30 02/09/25 09:48 10 MG Vancomycin HCl 100 ml @ 200 mls/hr Q12H IV 02/09/25 14:00 02/09/25 13:52 200 MLS/HR Laboratory Results Laboratory Tests 02/09/25 04:56 Chemistry Test 02/09/25 04:56 Calcium Level 8.5 mg/dL (8.7-10.4) L Urinalysis Test 02/06/25 15:29 Urine Color Light-gallo (Yellow) Urine Clarity Ex.turbid (Clear) Urine pH 5.5 (5.0-9.0) Urine Specific [place] 1.026 (1.001-1.035) Urine Protein 1+ (Negative) H Urine Ketones Negative (Negative) Urine Blood 2+ /uL (Negative) H Urine Nitrite Negative (Negative) Urine Bilirubin Negative (Negative) Urine Urobilinogen Normal mg/dL (Negative) Urine Leukocyte Esterase 3+ /uL (Negative) Urine RBC 176 /hpf (0 - 4) Urine Microscopic WBC 376 /HPF (0-5) H Urine Squamous Epithelial Cells Mod /hpf (<5) Urine Bacteria Few /hpf (None Seen) H Urine Glucose 4+ mg/dL (Normal) H Microbiology Microbiology Date/Time Source Procedure Growth Status 02/07/25 04:03 Nose MRSA Screen - Final Complete 02/06/25 12:51 Blood Blood Culture - Preliminary NO GROWTH AFTER 72 HOURS OF INCUBATION. Resulted 02/06/25 09:28 Voided Urine Urine Culture - Final Complete Assessment/Plan Assessment/Plan 44-year-old female with a known history of congestive heart failure, diabetes mellitus type 2, hypertension, morbid obesity classIII, anxiety and depression disorder who initially presented to the hospital with a abdominal pain found to have 1. Vaginal bleeding currently on Provera, monitor H&H 2. Ureteral stricture 3. Uterine mass rule out malignancy 4. Acute kidney injury suspected secondary to vasomotor nephropathy 5. Diabetes mellitus type 2 6. Hypertension Continue Provera, gynecology consultation appreciated -antibiotics for UTI Plan discussed with: Patient Date of Service: Feb 09, 2025 Billing Provider: FLORINDA PACHECO MD Common Visit Codes: [id number] INP/OBS CARE(HIGH) FLORINDA PACHECO MD Feb 09, 2025 15:53
[2025-02-10] VITALS (7 sets, daily range): BP systolic 97–132; BP diastolic 55–74; PULSE 57–66; RESP 14–18; TEMP 97.3–98.6; O2SAT 92–98
--- NOTE | 2025-02-10 16:10 | DVHPN2 ---
Subjective Patient is assisted patient was states that she is still passing lot of vaginal bleeding with clots. 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 Right lower extremity BKA Medications Current Medications Medications Dose Ordered Sig/Mario Route Start Time Stop Time Status Last Admin Dose Admin Cefepime HCl 50 ml @ 12.5 mls/hr Q12HR IV 02/06/25 22:00 02/10/25 09:50 12.5 MLS/HR Ondansetron HCl 4 mg Q4HP PRN IV 02/06/25 13:30 02/07/25 15:40 4 MG Acetaminophen 650 mg Q6HP PRN PO 02/06/25 13:30 Ketorolac Tromethamine 15 mg Q6HPRN PRN IV 02/06/25 13:30 02/11/25 13:29 02/09/25 21:33 15 MG Vancomycin HCl 0 ml @ 0 mls/hr PER PHARMACY IV 02/06/25 20:15 Morphine Sulfate 2 mg Q4HPRN PRN IV 02/07/25 14:00 02/10/25 14:54 2 MG Diagnostic Test (Pha) 1 strip Q6HR 02/07/25 18:00 02/10/25 11:36 1 STRIP Insulin Human Regular Q6HR SC 02/07/25 18:00 02/10/25 11:38 9 UNITS Dextrose 50 ml UD PRN IV 02/07/25 15:45 Medroxyprogesterone Acetate 10 mg DAILY PO 02/08/25 05:30 02/10/25 09:50 10 MG Vancomycin HCl 100 ml @ 200 mls/hr Q12H IV 02/09/25 14:00 02/10/25 14:52 200 MLS/HR Laboratory Results Laboratory Tests 02/09/25 04:56 02/10/25 05:40 Urinalysis Test 02/06/25 15:29 Urine Color Light-gallo (Yellow) Urine Clarity Ex.turbid (Clear) Urine pH 5.5 (5.0-9.0) Urine Specific [place] 1.026 (1.001-1.035) Urine Protein 1+ (Negative) H Urine Ketones Negative (Negative) Urine Blood 2+ /uL (Negative) H Urine Nitrite Negative (Negative) Urine Bilirubin Negative (Negative) Urine Urobilinogen Normal mg/dL (Negative) Urine Leukocyte Esterase 3+ /uL (Negative) Urine RBC 176 /hpf (0 - 4) Urine Microscopic WBC 376 /HPF (0-5) H Urine Squamous Epithelial Cells Mod /hpf (<5) Urine Bacteria Few /hpf (None Seen) H Urine Glucose 4+ mg/dL (Normal) H Microbiology Microbiology Date/Time Source Procedure Growth Status 02/07/25 04:03 Nose MRSA Screen - Final Complete 02/06/25 12:51 Blood Blood Culture - Preliminary NO GROWTH AFTER 72 HOURS OF INCUBATION. Resulted 02/06/25 09:28 Voided Urine Urine Culture - Final Complete Assessment/Plan Assessment/Plan 44-year-old female with a known history of congestive heart failure, diabetes mellitus type 2, hypertension, morbid obesity classIII, anxiety and depression disorder who initially presented to the hospital with a abdominal pain found to have 1. Vaginal bleeding currently on Provera, monitor H&H 2. Ureteral stricture 3. Uterine mass rule out malignancy 4. Acute kidney injury suspected secondary to vasomotor nephropathy, improving 5. Diabetes mellitus type 2 6. Hypertension Continue Provera, gynecology consultation appreciated -discharge plan once vaginal bleeding stops, patient is higher level of care as an outpatient for uterine solid mass which was likely malignancy. Plan discussed with: Patient Date of Service: Feb 10, 2025 Billing Provider: FLORINDA PACHECO MD Common Visit Codes: [id number] INP/OBS CARE(HIGH) FLORINDA PACHECO MD Feb 10, 2025 16:10
[2025-02-11] VITALS (8 sets, daily range): BP systolic 107–133; BP diastolic 60–89; PULSE 57–65; RESP 18–22; TEMP 97.6–98.4; O2SAT 95–99
--- NOTE | 2025-02-11 11:42 | DVHPN2 ---
Subjective Patient continues to report having suprapubic pain. Reviewed: Care Plan, H&P, Medications Changes from previous H/P or p: No Changes General: Per HPI Objective Vitals Vital Signs Date Time Temp Pulse Resp B/P (MAP) Pulse Ox O2 Delivery O2 Flow Rate FiO2 02/11/25 10:27 68 16 117/54 02/11/25 09:00 97.6 96 97.6 02/10/25 20:00 Room Air* 0 21 Intake/Output Intake and Output 02/11/25 07:00 Intake Total 2100 ml Balance 2100 ml Intake Oral 1900 ml IV Total 200 ml # Voids 6 # Bowel Movements 2 General Appearance: Alert, Oriented X3, Cooperative HEENT: Atraumatic, PERRLA Cardiovascular: Normal S1, Normal S2 Abdomen: Normal bowel sounds, Soft, No tenderness Musculoskeletal: Normal sensory function, Normal motor function Extremities: No clubbing, No cyanosis Skin: Dry, Intact Psych/Mental Status: Mental status NL, Mood NL Medications Current Medications Medications Dose Ordered Sig/Mario Route Start Time Stop Time Status Last Admin Dose Admin Cefepime HCl 50 ml @ 12.5 mls/hr Q12HR IV 02/06/25 22:00 02/11/25 10:21 12.5 MLS/HR Ondansetron HCl 4 mg Q4HP PRN IV 02/06/25 13:30 02/07/25 15:40 4 MG Acetaminophen 650 mg Q6HP PRN PO 02/06/25 13:30 Ketorolac Tromethamine 15 mg Q6HPRN PRN IV 02/06/25 13:30 02/11/25 13:29 02/09/25 21:33 15 MG Vancomycin HCl 0 ml @ 0 mls/hr PER PHARMACY IV 02/06/25 20:15 Morphine Sulfate 2 mg Q4HPRN PRN IV 02/07/25 14:00 02/11/25 10:27 2 MG Diagnostic Test (Pha) 1 strip Q6HR 02/07/25 18:00 02/11/25 05:02 1 STRIP Insulin Human Regular Q6HR SC 02/07/25 18:00 02/11/25 05:03 12 UNITS Dextrose 50 ml UD PRN IV 02/07/25 15:45 Medroxyprogesterone Acetate 10 mg DAILY PO 02/08/25 05:30 02/11/25 10:00 10 MG Vancomycin HCl 100 ml @ 200 mls/hr Q12H IV 02/09/25 14:00 02/11/25 02:00 200 MLS/HR Laboratory Results Laboratory Tests 02/09/25 04:56 02/11/25 00:47 Urinalysis Test 02/06/25 15:29 Urine Color Light-gallo (Yellow) Urine Clarity Ex.turbid (Clear) Urine pH 5.5 (5.0-9.0) Urine Specific [place] 1.026 (1.001-1.035) Urine Protein 1+ (Negative) H Urine Ketones Negative (Negative) Urine Blood 2+ /uL (Negative) H Urine Nitrite Negative (Negative) Urine Bilirubin Negative (Negative) Urine Urobilinogen Normal mg/dL (Negative) Urine Leukocyte Esterase 3+ /uL (Negative) Urine RBC 176 /hpf (0 - 4) Urine Microscopic WBC 376 /HPF (0-5) H Urine Squamous Epithelial Cells Mod /hpf (<5) Urine Bacteria Few /hpf (None Seen) H Urine Glucose 4+ mg/dL (Normal) H Microbiology Microbiology Date/Time Source Procedure Growth Status 02/07/25 04:03 Nose MRSA Screen - Final Complete 02/06/25 12:51 Blood Blood Culture - Preliminary NO GROWTH AFTER 72 HOURS OF INCUBATION. 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 This medical document was created using an electronic medical record system with [employer] dictation system. Although this document has been carefully reviewed, there may still be some phonetic and typographical errors. These areas are purely typographical due to imperfections of the software programs, and do not reflect any compromise in the patient's medical care. Plan discussed with: Patient, Other (RN) My Orders Orders - JAJA CHANEL NP Procedure Category Date Status Time Ca 125 (Serial) LAB 02/11/25 Logged 11:19 * Urology Consult CONS 02/11/25 Transmitted 11:19 Complete Blood Count LAB 02/11/25 Logged 11:19 Comprehensive LAB 02/11/25 Logged Metabolic Panel 11:19 Hemoglobin A1c LAB 02/11/25 Transmitted 11:37 Insulin Lantus PHA 02/11/25 Transmitted (Glargine) (Lantus) 22:00 Date of Service: Feb 11, 2025 Billing Provider: JAJA CHANEL NP Common Visit Codes: [id number] INP/OBS CARE(HIGH) JAJA CHANEL NP Feb 11, 2025 11:42
[2025-02-11 12:26] LABS: Hematocrit 24.6 % (36.0-46.0); Hemoglobin 8.1 g/dL (12.2-16.2); Mean Corpuscular Hemoglobin 32.3 pg (28.0-32.0); Mean Corpuscular Volume 97.8 fL (80.0-100.0); Nucleated Red Blood Cells % 0.4 %
[2025-02-11 12:40] LABS: Alanine Aminotransferase 14 U/L (7-40); Albumin 3.2 g/dL (3.2-4.8); Alkaline Phosphatase 115 U/L (46-116); Anion Gap 6 (5-15); BUN/Creatinine Ratio 29.7 (10.0-20.0); Calcium 8.7 mg/dL (8.7-10.4); Carbon Dioxide 25 mmol/L (20-31); Chloride 101 mmol/L (98-107); Total Protein 5.7 g/dL (5.7-8.2)
[2025-02-11 12:41] LABS: Bilirubin, Total 0.2 mg/dL (0.2-1.0); Blood Urea Nitrogen 27 mg/dL (9-23); Glucose 255 mg/dL (74-106); Potassium 5.2 mmol/L (3.5-5.1); Sodium 132 mmol/L (136-145)
--- NOTE | 2025-02-11 12:48 | DVHINCON2 ---
Date of service: Feb 11, 2025 Referring Physician Hospitalist Reason for Consultation ureteral stricture History of Present Illness History Source: Patient, RN Notes, MD Notes Exam Limitations: No limitations HPI pt is admitted for abd pain,n/v ,chills and dysuria.she has extensive hx of language pathologist issues that she underwent endometrial ablation,uterine artery embolization .her lmp was 5 yrs ago and currently she has vaginal bleeding with clots and precipitous drop in hgb. LMP 5yrs ago. started on Provera. Urology consulted for CT finding of UPJ stricture with moderate hydro Home Meds Reported Medications Spironolactone (Spironolactone) 50 Mg Tab, 1 TAB PO DAILY, #30 TAB 3 Refills 02/07/25 Acetaminophen (Tylenol) 650 Mg Rc, 650 MG FL, SUPP.RECT 02/07/25 Atorvastatin Calcium (Lipitor) 40 Mg Tab, 1 TAB PO QPM, #90 TAB 1 Refill 02/07/25 Insulin Glargine (Basaglar Kwikpen) 100 Unit/Ml Inj, 100 UNIT SC, INJ 02/07/25 Folic Acid (Folic Acid) 1 Mg Tab, 1 MG PO, TAB 02/07/25 Metoprolol Succinate (Metoprolol Succinate Er) 25 Mg Tab, 1 TAB PO DAILY, #30 TAB 5 Refills 02/07/25 Sacubitril-Valsartan (Entresto 24-26 mg) 1 Tab Tab, 1 TAB PO, TAB 02/07/25 Tirzepatide (Zepbound) 7.5 Mg/0.5 Ml Inj, 7.5 MG SC, INJ 02/07/25 Warfarin Sodium (Warfarin Sodium) 3 Mg Tab, 3 MG PO for 30 Days, MG 02/07/25 Torsemide (Torsemide) 20 Mg Tab, 20 MG PO, MG 02/07/25 Gabapentin (Gabapentin) 300 Mg Cap, 300 MG PO BID for 30 Days, MG 02/07/25 Fluoxetine Hcl (Fluoxetine Hcl) 20 Mg Cap, 40 MG PO DAILY for 30 Days, MG 02/07/25 Albuterol Sulfate (Albuterol Sulfate) 2 Mg Tab, 2 MG PO Q6HP, MG 02/07/25 Past Medical History Patient Family History: Patient reports no known family medical history. Review of Systems Constitutional: Weakness Genitourinary: Hematuria H&P Exam Vital Signs Vital Signs Date Time Temp Pulse Resp B/P (MAP) Pulse Ox O2 Delivery O2 Flow Rate FiO2 02/11/25 10:27 68 16 117/54 02/11/25 09:00 97.6 96 97.6 02/10/25 20:00 Room Air* 0 21 General Appeara: Well developed, Well nourished, Normal Appearance, Mild distress, Obese Neuro/Mental St: Alert, Oriented Appearance: Appropriate appearance, Appropriate insight Eye contact/ Speech: Cooperative, Good eye contact, Normal speech Skin Exam: Pallor Labs/Xrays [place] [address] Ph: [phone] DIAGNOSTIC IMAGING Diagnostic Imaging Report : [id number] Signed PATIENT: KIYA CESPEDEST: [id number] UNIT: [id number] : 1980 LOC: ER ROOM / BED: / AGE / SEX: 44 / F ADM STATUS: REG ER SERVICE 1018 ORDERING PHYSICIAN: ESPERANZA HARO MD PROCEDURE(s): ABPL - CT AB PEL WO CON-NO ORAL OR IV REASON: colitis ORDER NUMBER(s): [id number], ACCESSION NUMBER(s): [id number] Indication: colitis Technique: CT axial images of the abdomen and pelvis are obtained without contrast. Coronal and sagittal reformats were obtained. Comparison: CT ABD/PEL on DOS: 04/10/24 FINDINGS: There is limited interpretation of the abdomen and pelvis without administration of intravenous contrast. Lung bases demonstrate atelectasis. Aortic valvular prosthesis. Adrenal glands demonstrate 1.4 cm right adrenal adenoma and 1.5 cm left adrenal adenoma. Spleen, pancreas unremarkable in shape. Cholecystectomy. Hepatic steatosis. The kidneys demonstrate no nephrolithiasis. Zdnl-vl-jikvqlrm right hydronephrosis with abrupt tapering of the proximal right ureter. Stomach is partially distended. Small bowel loops are normal in caliber. Moderate volume stool in the colon. Normal appendix. Bladder partially distended. Left ovarian/adnexal lesion measuring 6 cm. Lower uterine lesion measuring 6.2 x 5.9 cm. No free pelvic fluid. No inguinal lymphadenopathy. Ewoc-zb-tmoscogs bilateral sacroiliac degenerative joint disease. Moderate to advanced lumbar degenerative disc disease. T10 butterfly vertebral body. IMPRESSION: Limited evaluation without contrast. Qskb-ic-tsemwzqu right hydronephrosis with abrupt tapering of the proximal right ureter. Recommend urology consultation to further evaluate exclude UPJ stricture, obstructing proximal ureteral lesion. Left ovarian/adnexal lesion measuring 6 cm. Recommend pelvic ultrasound to further evaluate. Lower uterine/ cervical lesion/mass measuring 6.2 cm. Recommend pelvic ultrasound and language pathologist consultation. Moderate volume stool in the colon. Other findings as described ATED BY: BENNIE ELDER MD DICTATED DATE/TIME: 02/06/25 1121 SIGNED BY: BENNIE ELDER MD SIGNED DATE/TIME: 02/06/25 1121 CC: Labs Test 02/11/25 11:39 02/11/25 04:55 02/11/25 00:47 02/09/25 04:56 Range/Units White Blood Count 7.5 4.4-10.8 10^3/uL Red Blood Count 2.52 L 4.0-5.20 10^6/uL Hemoglobin 8.1 #L 12.2-16.2 g/dL Hematocrit 24.6 #L 36.0-46.0 % Mean Corpuscular Volume 97.8 80.0-100.0 fL Mean Corpuscular Hemoglobin 32.3 H 28.0-32.0 pg Mean Corpuscular Hemoglobin Concent 33.0 32.0-36.0 g/dL Red Cell Distribution Width 14.3 11.8-14.3 % Platelet Count 200 140-450 10^3/uL Mean Platelet Volume 9.5 6.9-10.8 fL Neutrophils (%) (Auto) 71.7 37.0-80.0 % Lymphocytes (%) (Auto) 18.6 10.0-50.0 % Monocytes (%) (Auto) 8.1 0.0-12.0 % Eosinophils (%) (Auto) 1.1 0.0-7.0 % Basophils (%) (Auto) 0.5 0.0-2.0 % Neutrophils # (Auto) 5.3 1.6-8.6 10 ^3/uL Lymphocytes # (Auto) 1.4 0.4-5.4 10 ^3/uL Monocytes # (Auto) 0.6 0-1.3 10 ^3/uL Eosinophils # (Auto) 0.1 0-0.8 10 ^3/uL Basophils # (Auto) 0 0-0.2 10 ^3/uL Nucleated Red Blood Cells 0.4 % POC Glucose 305 H 70-106 mg/dl Vancomycin Level Trough 13.6 H 5-10 ug/mL Random Vancomycin Level 11.8 H 5-10 ug/mL Test 02/06/25 17:37 02/06/25 15:29 02/06/25 12:34 02/06/25 09:59 Range/Units Troponin I High Sensitivity 16 </=34 ng/L Urine Color Light-gallo Yellow Urine Clarity Ex.turbid Clear Urine pH 5.5 5.0-9.0 Urine Specific [place] 1.026 1.001-1.035 Urine Protein 1+ H Negative Urine Ketones Negative Negative Urine Blood 2+ H Negative /uL Urine Nitrite Negative Negative Urine Bilirubin Negative Negative Urine Urobilinogen Normal Negative mg/dL Urine Leukocyte Esterase 3+ Negative /uL Urine RBC 176 0 - 4 /hpf Urine Microscopic WBC 376 H 0-5 /HPF Urine Squamous Epithelial Cells Mod <5 /hpf Urine Bacteria Few H None Seen /hpf Urine Glucose 4+ H Normal mg/dL Lactic Acid Level 1.7 0.4-2.0 mmol/L B-Type Natriuretic Peptide 291.64 0-100 pg/mL Microbiology Date/Time Source Procedure Growth Status 02/07/25 04:03 Nose MRSA Screen - Final Complete 02/06/25 12:51 Blood Blood Culture - Preliminary NO GROWTH AFTER 72 HOURS OF INCUBATION. Resulted 02/06/25 09:28 Voided Urine Urine Culture - Final Complete Assessment/Plan Problem List: (1) Anemia (2) Abnormal vaginal bleeding (3) Hydronephrosis concurrent with and due to ureteral stricture Plan NM renal scan r/o obstruction medical management of other conditions Plan discussed with: Patient, Other DAMIÁN MARTINEZ NP Feb 11, 2025 12:48
[2025-02-11] MEDS: HYDROmorphone HCL 2 MG/ML VL/or syr IV PRN (21:34)
[2025-02-12] VITALS (8 sets, daily range): BP systolic 100–135; BP diastolic 38–81; PULSE 51–80; RESP 18–20; TEMP 97.7–98.2; O2SAT 93–99
[2025-02-12] MEDS: INSULIN LANTUS (GLARGINE) 1 /0.01ml (100units/ml) SC SCH ×2 (00:18→21:36)
[2025-02-12] MEDS: MORPHINE SULFATE INJ 2 MG/ml SYRG IV PRN (01:06)
[2025-02-12 08:57] LABS: Hemoglobin 8.3 g/dL (12.2-16.2)
[2025-02-12 09:04] LABS: Hematocrit 25.1 % (36.0-46.0); Mean Corpuscular Hemoglobin 32.2 pg (28.0-32.0); Mean Corpuscular Volume 97.8 fL (80.0-100.0); Nucleated Red Blood Cells % 0.5 %
--- NOTE | 2025-02-12 11:01 | DVHPN2 ---
Subjective Patient continues to report having suprapubic pain. Reviewed: Care Plan, H&P, Medications Changes from previous H/P or p: No Changes General: Per HPI Objective Vitals Vital Signs Date Time Temp Pulse Resp B/P (MAP) Pulse Ox O2 Delivery O2 Flow Rate FiO2 02/12/25 09:51 63 18 129/70 02/12/25 09:19 97.7 93 97.7 02/12/25 08:00 Room Air* 0 21 Intake/Output Intake and Output 02/12/25 07:00 Intake Total 1650 ml Balance 1650 ml Intake Oral 1650 ml # Voids 4 General Appearance: Alert, Oriented X3, Cooperative HEENT: Atraumatic, PERRLA Cardiovascular: Normal S1, Normal S2 Abdomen: Normal bowel sounds, Soft, No tenderness Musculoskeletal: Normal sensory function, Normal motor function Extremities: No clubbing, No cyanosis Skin: Dry, Intact Psych/Mental Status: Mental status NL, Mood NL Medications Current Medications Medications Dose Ordered Sig/Mario Route Start Time Stop Time Status Last Admin Dose Admin Cefepime HCl 50 ml @ 12.5 mls/hr Q12HR IV 02/06/25 22:00 02/11/25 21:33 12.5 MLS/HR Ondansetron HCl 4 mg Q4HP PRN IV 02/06/25 13:30 02/07/25 15:40 4 MG Acetaminophen 650 mg Q6HP PRN PO 02/06/25 13:30 Vancomycin HCl 0 ml @ 0 mls/hr PER PHARMACY IV 02/06/25 20:15 Diagnostic Test (Pha) 1 strip Q6HR 02/07/25 18:00 02/12/25 06:20 1 STRIP Insulin Human Regular Q6HR SC 02/07/25 18:00 02/12/25 06:21 6 UNITS Dextrose 50 ml UD PRN IV 02/07/25 15:45 Medroxyprogesterone Acetate 10 mg DAILY PO 02/08/25 05:30 02/11/25 10:00 10 MG Vancomycin HCl 100 ml @ 200 mls/hr Q12H IV 02/09/25 14:00 02/12/25 02:57 200 MLS/HR Hydromorphone HCl 0.5 mg Q4HPRN PRN IV 02/11/25 18:45 02/12/25 04:48 0.5 MG Morphine Sulfate 2 mg Q4HPRN PRN IV 02/11/25 19:00 02/12/25 09:51 2 MG Insulin Glargine 25 units HS SC 02/12/25 22:00 Laboratory Results Laboratory Tests 02/11/25 11:39 02/12/25 04:40 Chemistry Test 02/11/25 11:39 Albumin 3.2 g/dL (3.2-4.8) Calcium Level 8.7 mg/dL (8.7-10.4) Total Protein 5.7 g/dL (5.7-8.2) LFT Test 02/11/25 11:39 Alanine Aminotransferase (ALT) 14 U/L (7-40) Alkaline Phosphatase 115 U/L (46-116) Aspartate Amino Transferase (AST) 11 U/L (13-40) L Total Bilirubin 0.2 mg/dL (0.2-1.0) HgA1c, TSH Test 02/11/25 11:39 Hemoglobin A1c 8.6 % A1C (<5.7) H Urinalysis Test 02/06/25 15:29 02/11/25 21:41 Urine Color Light-gallo (Yellow) Urine Clarity Ex.turbid (Clear) Urine pH 5.5 (5.0-9.0) Urine Specific [place] 1.026 (1.001-1.035) Urine Protein 1+ (Negative) H Urine Ketones Negative (Negative) Urine Blood 2+ /uL (Negative) H Urine Nitrite Negative (Negative) Urine Bilirubin Negative (Negative) Urine Urobilinogen Normal mg/dL (Negative) Urine Leukocyte Esterase 3+ /uL (Negative) Urine RBC 176 /hpf (0 - 4) Urine Microscopic WBC 376 /HPF (0-5) H Urine Squamous Epithelial Cells Mod /hpf (<5) Urine Bacteria Few /hpf (None Seen) H Urine Glucose 4+ mg/dL (Normal) H Urine Test Negative (Negative) Microbiology Microbiology Date/Time Source Procedure Growth Status 02/07/25 04:03 Nose MRSA Screen - Final Complete 02/06/25 12:51 Blood Blood Culture - Final NO GROWTH AFTER 5 DAYS OF INCUBATION. 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 H&H stable from yesterday. White blood cell count remains normal. Continues to have suprapubic pain. Pending Phase 3 renal scan. CA 125 within normal range -start iron supplementation -continue Provera -Cardiology consultation for recommendations regarding anticoagulation with Coumadin for prosthetic aortic valve -regular insulin sliding scale, decrease Lantus -hold anticoagulation considering persistent vaginal bleeding -antihypertensives -pain management -urology consultation: Pending -repeat CBC and CMP today Total time spent with patient discussing and formulating plan of care: 35 minutes. This medical document was created using an electronic medical record system with [employer] system. Although this document has been carefully reviewed, there may still be some phonetic and typographical errors. These areas are purely typographical due to imperfections of the software programs, and do not reflect any compromise in the patient's medical care. Plan discussed with: Patient, Other (RN) My Orders Orders - JAJA CHANEL NP Procedure Category Date Status Time * Urology Consult CONS 02/11/25 Transmitted 11:19 Hydromorphone PHA 02/11/25 In Process Injection (Dilaudid 18:45 Insulin Lantus PHA 02/12/25 In Process (Glargine) (Lantus) 22:00 Complete Blood Count LAB 02/13/25 Verified 04:00 Hemoglobin & LAB 02/13/25 Verified Hematocrit 04:00 Ferrous Sulfate Tablet PHA 02/12/25 Verified 18:00 Date of Service: Feb 12, 2025 Billing Provider: JAJA CHANEL NP Common Visit Codes: [id number] INP/OBS CARE(HIGH) JAJA CHANEL NP Feb 12, 2025 11:01
[2025-02-12] MEDS: FUROSEMIDE 40 MG/4 ML VIAL ONE (14:30)
[2025-02-12] MEDS: FUROSEMIDE 40 MG/4 ML VIAL IV ONE (14:30)
--- NOTE | 2025-02-12 16:00 | DVH ---
Procedure: AR NM MAG3 RENAL SCAN Exam Date: 02/12/2025 01:06 PM. Clinical History: hydronephrosis Comparison Study: None Nuclear Medicine Renal Scan with Lasix. Technique: Following the intravenous administration of 10.5 mCi of technetium 99m labeled MAG-3 , rachel w images were acquired in one second intervals. This was followed by functional imaging of the kidn eys in the posterior projection which were obtained at 20 seconds intervals reconstructed into 2 min curyung frames for a total of 4 minutes. 40 mg of Lasix were given IV at the 10 minute sabino. Flow curv es and functional renogram curves were generated. Split function data were generated from the first three minutes of the study. Findings: Mild asymmetrically reduced perfusion to the right kidney . On the left there is normal cortical uptake and transit into a nondistended collecting system with no rmal drainage of the urinary bladder. On the right there is mildly delayed cortical uptake and transit into a distended proximal collecting system with fairly abrupt transition near the UPJ. The functional data was obtained with the renal pelvis included in the region of interest: Left: Peak time on the left is 4.4 minutes. Peak to 1/2 peak on the left is 19 minutes. Diuretic T 1/2 on the left is 32.2 minutes (artificially elevated due to lack of residual activity in the collecting system). Right: Peak time on the right is 21.4 minutes. Peak to 1/2 peak on the right is 25.6 minutes. Diuretic T 1/2 on the right is 25.6 minutes. Split function is 67.1 % on the left and 32.9 % on the right. IMPRESSION: Mildly impaired right renal function with delayed cortical uptake and transit. Left renal dominance with the left kidney responsible for 67.1% of total renal function. High-grade right UPJ obstruction.
[2025-02-12 16:19] LABS: INR 1.0 (0.9-1.15); Partial Thromboplastin Time 33.4 SEC (24.5-34.5); Prothrombin Time 10.6 sec (9.3-11.8)
[2025-02-12] MEDS: FERROUS SULFATE 325mg EC TAB PO SCH (18:13)
[2025-02-12 21:04] LABS: INR 1.03 (0.9-1.15); Prothrombin Time 10.9 sec (9.3-11.8)
--- NOTE | 2025-02-12 23:51 | DVHINCON2 ---
Date of service: Feb 12, 2025 Referring Physician Cara Reason for Consultation Recommendation for restarting Coumadin for prosthetic valve History of Present Illness This is a 44 year old female with a PMH of Anxiety, Asthma, Depression, DM, HTN who presented to the ED on 02/06 with a complaint of abdominal pain. Patient reports that she has been experiencing diffuse abdominal pain with associated dysuria and difficulty urinating since 02/05 at 8pm. Patient notes that she has taken Tylenol and Hurt with no relief noted. EMS stated that the patient was tachycardic at a heart rate of 118 along with having a BG of 197. Transvaginal US showed bilateral ovaries are not well visualized due to body habitus. Uterus body is not well visualized. There is a solid mass in the lower uterine segment measuring 5.6 x 5.3 x 5.6 cm. Patient was admitted to the hospital. I am asked to consult on this patient. Family History: Patient reports no known family medical history. Allergies: Coded Allergies: NO KNOWN ALLERGIES (Unverified , 02/06/25) Home Meds Reported Medications Spironolactone (Spironolactone) 50 Mg Tab, 1 TAB PO DAILY, #30 TAB 3 Refills 02/07/25 Acetaminophen (Tylenol) 650 Mg Rc, 650 MG DE, SUPP.RECT 02/07/25 Atorvastatin Calcium (Lipitor) 40 Mg Tab, 1 TAB PO QPM, #90 TAB 1 Refill 02/07/25 Insulin Glargine (Basaglar Kwikpen) 100 Unit/Ml Inj, 100 UNIT SC, INJ 02/07/25 Folic Acid (Folic Acid) 1 Mg Tab, 1 MG PO, TAB 02/07/25 Metoprolol Succinate (Metoprolol Succinate Er) 25 Mg Tab, 1 TAB PO DAILY, #30 TAB 5 Refills 02/07/25 Sacubitril-Valsartan (Entresto 24-26 mg) 1 Tab Tab, 1 TAB PO, TAB 02/07/25 Tirzepatide (Zepbound) 7.5 Mg/0.5 Ml Inj, 7.5 MG SC, INJ 02/07/25 Warfarin Sodium (Warfarin Sodium) 3 Mg Tab, 3 MG PO for 30 Days, MG 02/07/25 Torsemide (Torsemide) 20 Mg Tab, 20 MG PO, MG 02/07/25 Gabapentin (Gabapentin) 300 Mg Cap, 300 MG PO BID for 30 Days, MG 02/07/25 Fluoxetine Hcl (Fluoxetine Hcl) 20 Mg Cap, 40 MG PO DAILY for 30 Days, MG 02/07/25 Albuterol Sulfate (Albuterol Sulfate) 2 Mg Tab, 2 MG PO Q6HP, MG 02/07/25 Current Medications Current Medications Medications (Trade) Dose Ordered Sig/Mario Route PRN Reason Start Time Stop Time Status Last Admin Insulin Glargine (Lantus) 15 units HS SC 02/11/25 22:00 02/12/25 10:25 DC 02/12/25 00:18 Hydromorphone HCl (Dilaudid Injection) 0.5 mg Q4HPRN PRN IV SEVERE PAIN (7-10 PAIN SCALE) 02/11/25 18:45 02/12/25 04:48 Morphine Sulfate 2 mg Q4HPRN PRN IV MODERATE PAIN (4-6 PAIN SCALE) 02/11/25 19:00 02/12/25 09:51 Insulin Glargine (Lantus) 25 units HS SC 02/12/25 22:00 Ferrous Sulfate 325 mg BIDWM PO 02/12/25 18:00 Review of Systems Constitutional: denies: chills, diaphoresis, fatigue, fever, malaise, sweats, weakness, others EENTM: denies: blurred vision, double vision, ear bleeding, ear discharge, ear drainage, ear pain, ear ringing, eye pain, eye redness, hearing loss, mouth pain, mouth swelling, nasal discharge, nose bleeding, nose congestion, nose pain, photophobia, tearing, throat pain, throat swelling, voice changes, others Respiratory: denies: cough, hemoptysis, orthopnea, SOB at rest, shortness of breath, SOB with excertion, stridor, wheezing, others Cardiovascular: denies: chest pain, dizzy spells, diaphoresis, Dyspnea on exertion, edema, irregular heart beat, left arm pain, lightheadedness, palpitations, PND, syncope, others Gastrointestinal: reports: abdominal pain; denies: abdomen distended, blood streaked bowels, constipated, diarrhea, dysphagia, difficulty swallowing, hematemesis, melena, nausea, poor appetite, poor fluid intake, rectal bleeding, rectal pain, vomiting, others Genitourinary: reports: dysuria, others (Difficulty urinating); denies: abnormal vagina bleeding, burning, dyspareunia, flank pain, frequency, hematuria, incontinence, pain, , vagina discharge, urgency Neurological: denies: dizziness, fainting, headache, left sided numbness, left sided weakness, numbness, paresthesia, pre-existing deficit, right sided nu mbness, right sided weakness, seizure, speech problems, tingling, tremors, weakness, others Musculoskeletal: denies: back pain, gout, joint pain, joint swelling, muscle pain, muscle stiffness, neck pain, others Integumetry: denies: bruises, change in color, change in hair/nails, dryness, laceration, lesions, lumps, rash, wounds, others Allergic/Immunocompromised: denies: Difficulty Healing, Frequent Infections, Hives, Itching, others Hematologic/Lymphatic: denies: anemia, blood clots, easy bleeding, easy bruising, swollen glands, others Endocrine: denies: excessive hunger, excessive sweating, excessive thirst, excessive urination, flushing, intolerance to cold, intolerance to heat, unexplained weight gain, unexplained weight loss, others Psychiatric: denies: anxiety, bipolar disorder, depression, hopeless, panic disorder, schizophrenia, sleepless, suicidal, others All Other Systems: Reviewed and Negative Vital Signs Vital Signs Date Time Temp Pulse Resp B/P (MAP) Pulse Ox O2 Delivery O2 Flow Rate FiO2 02/12/25 09:51 63 18 129/70 02/12/25 09:19 97.7 93 97.7 02/12/25 08:00 Room Air* 0 21 Physical Exam GENERAL: Alert and oriented x 3. No acute distress. Obese. EYES: PERRL, EOMI. Anicteric. HENT: Moist mucous membranes. LUNGS: Clear to auscultation bilaterally. CARDIOVASCULAR: Regular rate and rhythm. ABDOMEN: Soft, nontender and nondistended. EXTREMITIES: No edema. Right BKA. NEUROLOGIC: No focal neurological deficits. SKIN: Warm, dry. Labs/Diagnostic Data Labs Test 02/12/25 11:28 02/12/25 04:40 02/11/25 21:41 02/11/25 15:13 Range/Units POC Glucose 266 H 70-106 mg/dl White Blood Count 7.9 4.4-10.8 10^3/uL Red Blood Count 2.56 L 4.0-5.20 10^6/uL Hemoglobin 8.3 L 12.2-16.2 g/dL Hematocrit 25.1 L 36.0-46.0 % Mean Corpuscular Volume 97.8 80.0-100.0 fL Mean Corpuscular Hemoglobin 32.2 H 28.0-32.0 pg Mean Corpuscular Hemoglobin Concent 33.0 32.0-36.0 g/dL Red Cell Distribution Width 14.6 H 11.8-14.3 % Platelet Count 232 140-450 10^3/uL Mean Platelet Volume 9.6 6.9-10.8 fL Neutrophils (%) (Auto) 70.7 37.0-80.0 % Lymphocytes (%) (Auto) 19.8 10.0-50.0 % Monocytes (%) (Auto) 7.7 0.0-12.0 % Eosinophils (%) (Auto) 1.3 0.0-7.0 % Basophils (%) (Auto) 0.5 0.0-2.0 % Neutrophils # (Auto) 5.6 1.6-8.6 10 ^3/uL Lymphocytes # (Auto) 1.6 0.4-5.4 10 ^3/uL Monocytes # (Auto) 0.6 0-1.3 10 ^3/uL Eosinophils # (Auto) 0.1 0-0.8 10 ^3/uL Basophils # (Auto) 0 0-0.2 10 ^3/uL Nucleated Red Blood Cells 0.5 % Creatinine 0.92 0.550-1.02 mg/dL Glomerular Filtration Rate Calc 78 >90 mL/min Urine Test Negative Negative CA 125 Antigen 32.2 0.0-38.1 U/mL Test 02/11/25 11:39 02/11/25 00:47 02/09/25 04:56 02/06/25 17:37 Range/Units Sodium Level 132 L 136-145 mmol/L Potassium Level 5.2 H 3.5-5.1 mmol/L Chloride Level 101 98-107 mmol/L Carbon Dioxide Level 25 20-31 mmol/L Anion Gap 6 5-15 Blood Urea Nitrogen 27 H 9-23 mg/dL BUN/Creatinine Ratio 29.7 H 10.0-20.0 Serum Glucose 255 H 74-106 mg/dL Hemoglobin A1c 8.6 H <5.7 % A1C Calcium Level 8.7 8.7-10.4 mg/dL Total Bilirubin 0.2 0.2-1.0 mg/dL Aspartate Amino Transferase (AST) 11 L 13-40 U/L Alanine Aminotransferase (ALT) 14 7-40 U/L Alkaline Phosphatase 115 46-116 U/L Total Protein 5.7 5.7-8.2 g/dL Albumin 3.2 3.2-4.8 g/dL Vancomycin Level Trough 13.6 H 5-10 ug/mL Random Vancomycin Level 11.8 H 5-10 ug/mL Troponin I High Sensitivity 16 </=34 ng/L Test 02/06/25 15:29 02/06/25 12:34 02/06/25 09:59 Range/Units Urine Color Light-gallo Yellow Urine Clarity Ex.turbid Clear Urine pH 5.5 5.0-9.0 Urine Specific [place] 1.026 1.001-1.035 Urine Protein 1+ H Negative Urine Ketones Negative Negative Urine Blood 2+ H Negative /uL Urine Nitrite Negative Negative Urine Bilirubin Negative Negative Urine Urobilinogen Normal Negative mg/dL Urine Leukocyte Esterase 3+ Negative /uL Urine RBC 176 0 - 4 /hpf Urine Microscopic WBC 376 H 0-5 /HPF Urine Squamous Epithelial Cells Mod <5 /hpf Urine Bacteria Few H None Seen /hpf Urine Glucose 4+ H Normal mg/dL Lactic Acid Level 1.7 0.4-2.0 mmol/L B-Type Natriuretic Peptide 291.64 0-100 pg/mL Microbiology Date/Time Source Procedure Growth Status 02/07/25 04:03 Nose MRSA Screen - Final Complete 02/06/25 12:51 Blood Blood Culture - Final NO GROWTH AFTER 5 DAYS OF INCUBATION. Complete 02/06/25 09:28 Voided Urine Urine Culture - Final Complete Assessment Vaginal bleeding. History of uterine fibroids. Questionable uterine mass. Diabetes mellitus. Right BKA. 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 Morbid obesity. Primary hypertension. 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 Plan/Recommendation I agree with your ongoing assessment and care of plan. IV antibiotics as ordered. Dilaudid for pain management. Additional plan as per the hospital course. A total of 45 minutes was spent reviewing the patient record, examining the patient, making a diagnostic and therapeutic plan, discussing this plan with medical personnel, following up on diagnostic studies and following the patient for clinical stability excluding any and all procedures. At least 50% of this time was spent in direct, [id number] contact. Plan discussed with: Patient CASSIE HILL MD Feb 12, 2025 13:14
[2025-02-13] VITALS (8 sets, daily range): BP systolic 108–141; BP diastolic 53–86; PULSE 53–65; RESP 18–20; TEMP 97.8–98.4; O2SAT 95–97
[2025-02-13 06:03] LABS: Hematocrit 24.0 % (36.0-46.0); Hemoglobin 7.9 g/dL (12.2-16.2); Mean Corpuscular Hemoglobin 32.5 pg (28.0-32.0); Mean Corpuscular Volume 98.7 fL (80.0-100.0); Nucleated Red Blood Cells % 0.4 %
[2025-02-13 07:15] LABS: INR 1.03 (0.9-1.15); Partial Thromboplastin Time 33.0 SEC (24.5-34.5); Prothrombin Time 10.9 sec (9.3-11.8)
[2025-02-13] MEDS: INSULIN LANTUS (GLARGINE) 1 /0.01ml (100units/ml) SC SCH (21:31)
[2025-02-14] VITALS (8 sets, daily range): BP systolic 100–146; BP diastolic 50–73; PULSE 53–66; RESP 16–18; TEMP 97.7–98.8; O2SAT 90–98
[2025-02-14 06:12] LABS: Hemoglobin 8.0 g/dL (12.2-16.2)
[2025-02-14 06:14] LABS: Hematocrit 23.7 % (36.0-46.0)
--- NOTE | 2025-02-14 11:07 | DVHPN2 ---
Subjective Patient reports that her vaginal bleeding has improved. Reviewed: Care Plan, H&P, Medications Changes from previous H/P or p: No Changes General: Per HPI Objective Vitals Vital Signs Date Time Temp Pulse Resp B/P (MAP) Pulse Ox O2 Delivery O2 Flow Rate FiO2 02/13/25 09:19 98.0 60 20 118/58 (78) 95 98.0 02/12/25 20:00 Room Air* 0 21 Intake/Output Intake and Output 02/13/25 07:00 Intake Total 1830 ml Output Total 1250 ml Balance 580 ml Intake Oral 1630 ml IV Total 200 ml Output Urine Total 1250 ml # Voids 3 General Appearance: Alert, Oriented X3, Cooperative, mild distress HEENT: Atraumatic, PERRLA Cardiovascular: Normal S1, Normal S2 Abdomen: Normal bowel sounds, Soft, No tenderness Musculoskeletal: Normal sensory function, Normal motor function Extremities: No clubbing, No cyanosis Skin: Dry, Intact Psych/Mental Status: Mental status NL, Mood NL Medications Current Medications Medications Dose Ordered Sig/Mario Route Start Time Stop Time Status Last Admin Dose Admin Cefepime HCl 50 ml @ 12.5 mls/hr Q12HR IV 02/06/25 22:00 02/13/25 09:36 12.5 MLS/HR Ondansetron HCl 4 mg Q4HP PRN IV 02/06/25 13:30 02/07/25 15:40 4 MG Acetaminophen 650 mg Q6HP PRN PO 02/06/25 13:30 Vancomycin HCl 0 ml @ 0 mls/hr PER PHARMACY IV 02/06/25 20:15 Diagnostic Test (Pha) 1 strip Q6HR 02/07/25 18:00 02/13/25 06:04 1 STRIP Insulin Human Regular Q6HR SC 02/07/25 18:00 02/13/25 06:39 9 UNITS Dextrose 50 ml UD PRN IV 02/07/25 15:45 Medroxyprogesterone Acetate 10 mg DAILY PO 02/08/25 05:30 02/12/25 11:20 10 MG Vancomycin HCl 100 ml @ 200 mls/hr Q12H IV 02/09/25 14:00 02/13/25 01:42 200 MLS/HR Hydromorphone HCl 0.5 mg Q4HPRN PRN IV 02/11/25 18:45 02/13/25 06:38 0.5 MG Morphine Sulfate 2 mg Q4HPRN PRN IV 02/11/25 19:00 02/12/25 15:38 2 MG Ferrous Sulfate 325 mg BIDWM PO 02/12/25 18:00 02/13/25 09:35 325 MG Insulin Glargine 35 units HS SC 02/13/25 22:00 UNV Laboratory Results Laboratory Tests 02/11/25 11:39 02/13/25 04:26 Coagulation Test 02/12/25 15:24 02/12/25 20:43 02/13/25 04:26 Prothrombin Time 10.6 sec (9.3-11.8) 10.9 sec (9.3-11.8) 10.9 sec (9.3-11.8) Prothrombin Time INR 1.00 (0.9-1.15) 1.03 (0.9-1.15) 1.03 (0.9-1.15) Activated Partial Thromboplast Time 33.4 SEC (24.5-34.5) 33.0 SEC (24.5-34.5) Urinalysis Test 02/06/25 15:29 02/11/25 21:41 Urine Color Light-gallo (Yellow) Urine Clarity Ex.turbid (Clear) Urine pH 5.5 (5.0-9.0) Urine Specific [place] 1.026 (1.001-1.035) Urine Protein 1+ (Negative) H Urine Ketones Negative (Negative) Urine Blood 2+ /uL (Negative) H Urine Nitrite Negative (Negative) Urine Bilirubin Negative (Negative) Urine Urobilinogen Normal mg/dL (Negative) Urine Leukocyte Esterase 3+ /uL (Negative) Urine RBC 176 /hpf (0 - 4) Urine Microscopic WBC 376 /HPF (0-5) H Urine Squamous Epithelial Cells Mod /hpf (<5) Urine Bacteria Few /hpf (None Seen) H Urine Glucose 4+ mg/dL (Normal) H Urine Test Negative (Negative) Microbiology Microbiology Date/Time Source Procedure Growth Status 02/07/25 04:03 Nose MRSA Screen - Final Complete 02/06/25 12:51 Blood Blood Culture - Final NO GROWTH AFTER 5 DAYS OF INCUBATION. 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 H&H stable at this time. Continue iron supplementation. Renal scan reviewed. Findings coincide with right ureter obstruction -continue iron supplementation -continue Provera -Cardiology consultation for recommendations regarding anticoagulation with Coumadin for prosthetic aortic valve -regular insulin sliding scale, decrease Lantus -hold anticoagulation considering persistent vaginal bleeding . Start bridge therapy once vaginal bleeding has stopped -antihypertensives -pain management -urology consultation: Recommendations reviewed -H&H daily Total time spent with patient discussing and formulating plan of care: 35 minutes. This medical document was created using an electronic medical record system with [employer] system. Although this document has been carefully reviewed, there may still be some phonetic and typographical errors. These areas are purely typographical due to imperfections of the software programs, and do not reflect any compromise in the patient's medical care. Plan discussed with: Patient, Other (RN) My Orders Orders - JAJA CHANEL NP Procedure Category Date Status Time Ferrous Sulfate Tablet PHA 02/12/25 In Process 18:00 * Cardiology Consult CONS 02/12/25 Transmitted 10:59 * Radiologist Consult CONS 02/12/25 Transmitted 15:04 Insulin Lantus PHA 02/13/25 Logged (Glargine) (Lantus) 22:00 Hemoglobin & LAB 02/14/25 Verified Hematocrit 05:00 Hemoglobin & LAB 02/15/25 Verified Hematocrit 05:00 Hemoglobin & LAB 02/16/25 Verified Hematocrit 05:00 Date of Service: Feb 13, 2025 Billing Provider: JAJA CHANEL NP Common Visit Codes: [id number] INP/OBS CARE(HIGH) JAJA CHANEL NP Feb 13, 2025 10:39
--- NOTE | 2025-02-14 11:29 | DVHPN2 ---
Progress Note - Dictate Date Seen: Feb 13, 2025 Medical Necessity Reason Pt with a Central, PICC or Fol: No Subjective Patient was seen and evaluated in follow up. Patient is complaining of suprapubic pain. HGB 7.9, HCT 24, GLUC 273. Telemetry reviewed. vital signs Vital Sign Date Time Temp Pulse Resp B/P (MAP) Pulse Ox O2 Delivery O2 Flow Rate FiO2 02/13/25 09:19 98.0 60 20 118/58 (78) 95 98.0 02/12/25 20:00 Room Air* 0 21 Total Intake and Output 02/12/25 02/12/25 02/13/25 15:00 23:00 07:00 Intake Total 230 ml 750 ml 850 ml Output Total 1250 ml Balance 230 ml -500 ml 850 ml medications Current Medications Medications Dose Ordered Sig/Mario Route Start Time Stop Time Status Last Admin Dose Admin Cefepime HCl 50 ml @ 12.5 mls/hr Q12HR IV 02/06/25 22:00 02/13/25 09:36 12.5 MLS/HR Ondansetron HCl 4 mg Q4HP PRN IV 02/06/25 13:30 02/07/25 15:40 4 MG Acetaminophen 650 mg Q6HP PRN PO 02/06/25 13:30 Vancomycin HCl 0 ml @ 0 mls/hr PER PHARMACY IV 02/06/25 20:15 Diagnostic Test (Pha) 1 strip Q6HR 02/07/25 18:00 02/13/25 06:04 1 STRIP Insulin Human Regular Q6HR SC 02/07/25 18:00 02/13/25 06:39 9 UNITS Dextrose 50 ml UD PRN IV 02/07/25 15:45 Medroxyprogesterone Acetate 10 mg DAILY PO 02/08/25 05:30 02/12/25 11:20 10 MG Vancomycin HCl 100 ml @ 200 mls/hr Q12H IV 02/09/25 14:00 02/13/25 01:42 200 MLS/HR Hydromorphone HCl 0.5 mg Q4HPRN PRN IV 02/11/25 18:45 02/13/25 06:38 0.5 MG Morphine Sulfate 2 mg Q4HPRN PRN IV 02/11/25 19:00 02/12/25 15:38 2 MG Ferrous Sulfate 325 mg BIDWM PO 02/12/25 18:00 02/13/25 09:35 325 MG Insulin Glargine 35 units HS SC 02/13/25 22:00 UNV objective GENERAL: Alert and oriented x 3. No acute distress. Obese. EYES: PERRL, EOMI. Anicteric. HENT: Moist mucous membranes. LUNGS: Clear to auscultation bilaterally. CARDIOVASCULAR: Regular rate and rhythm. ABDOMEN: Soft, nontender and nondistended. EXTREMITIES: No edema. Right BKA. NEUROLOGIC: No focal neurological deficits. SKIN: Warm, dry. laboratory and microbiology Laboratory Tests 02/13/25 04:26 02/11/25 11:39 Test 02/11/25 11:39 Range/Units Serum Glucose 255 H 74-106 mg/dL Problem List Vaginal bleeding. History of uterine fibroids. Questionable uterine mass. Diabetes mellitus. Right BKA. 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 Morbid obesity. Primary hypertension. 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 Assessment/Plan Continued all current supportive medical care. IV antibiotics as ordered. Dilaudid for pain management. Additional plan as per the hospital course. Dietary Evaluation Review Recommendations by RD: Dietary education by RD Comments: 1) Add cardiac restriction to 45g CCHO diet 2) Collect HbA1c 3) Refer to outpatient RD/CDCES for weight management 4) Follow-up with cardiology and gastroenterology 5) Continue to monitor I&O, labs, and skin integrity Expected Outcomes/Goals: 1) appetite and labs to improve 2) gradual wt loss 3) f/u in 3-5 days Plan discussed with: Patient CASSIE HILL MD Feb 13, 2025 11:48
--- NOTE | 2025-02-14 13:13 | DVHPN2 ---
Progress Note - Dictate Date Seen: Feb 14, 2025 Medical Necessity Reason Pt with a Central, PICC or Fol: No Subjective Patient was seen and evaluated in follow up. Patient is complaining of suprapubic discomfort. HGB 8, HCT 23.7, GLUC 239. Telemetry reviewed. vital signs Vital Sign Date Time Temp Pulse Resp B/P (MAP) Pulse Ox O2 Delivery O2 Flow Rate FiO2 02/14/25 09:00 97.9 53 16 146/66 (92) 98 97.9 02/14/25 07:59 Room Air* 0 21 Total Intake and Output 02/13/25 02/13/25 02/14/25 15:00 23:00 07:00 Intake Total 830 ml 1070 ml Output Total 675 ml Balance 155 ml 1070 ml medications Current Medications Medications Dose Ordered Sig/Mario Route Start Time Stop Time Status Last Admin Dose Admin Cefepime HCl 50 ml @ 12.5 mls/hr Q12HR IV 02/06/25 22:00 02/14/25 08:40 12.5 MLS/HR Ondansetron HCl 4 mg Q4HP PRN IV 02/06/25 13:30 02/07/25 15:40 4 MG Acetaminophen 650 mg Q6HP PRN PO 02/06/25 13:30 Vancomycin HCl 0 ml @ 0 mls/hr PER PHARMACY IV 02/06/25 20:15 Diagnostic Test (Pha) 1 strip Q6HR 02/07/25 18:00 02/14/25 06:00 1 STRIP Insulin Human Regular Q6HR SC 02/07/25 18:00 02/14/25 06:46 6 UNITS Dextrose 50 ml UD PRN IV 02/07/25 15:45 Medroxyprogesterone Acetate 10 mg DAILY PO 02/08/25 05:30 02/14/25 08:26 10 MG Vancomycin HCl 100 ml @ 200 mls/hr Q12H IV 02/09/25 14:00 02/14/25 02:36 200 MLS/HR Hydromorphone HCl 0.5 mg Q4HPRN PRN IV 02/11/25 18:45 02/14/25 08:28 0.5 MG Morphine Sulfate 2 mg Q4HPRN PRN IV 02/11/25 19:00 02/12/25 15:38 2 MG Ferrous Sulfate 325 mg BIDWM PO 02/12/25 18:00 02/14/25 08:27 325 MG Insulin Glargine 35 units HS SC 02/13/25 22:00 02/13/25 21:31 35 UNITS objective GENERAL: Alert and oriented x 3. No acute distress. Obese. EYES: PERRL, EOMI. Anicteric. HENT: Moist mucous membranes. LUNGS: Clear to auscultation bilaterally. CARDIOVASCULAR: Regular rate and rhythm. ABDOMEN: Soft, nontender and nondistended. EXTREMITIES: No edema. Right BKA. NEUROLOGIC: No focal neurological deficits. SKIN: Warm, dry. laboratory and microbiology Laboratory Tests 02/14/25 04:24 02/13/25 04:26 02/11/25 11:39 Test 02/11/25 11:39 Range/Units Serum Glucose 255 H 74-106 mg/dL Problem List Vaginal bleeding. History of uterine fibroids. Questionable uterine mass. Diabetes mellitus. Right BKA. 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 Morbid obesity. Primary hypertension. 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 Assessment/Plan Continued all current supportive medical care. IV antibiotics as ordered. Dilaudid for pain management. Additional plan as per the hospital course. Dietary Evaluation Review Recommendations by RD: Dietary education by RD Comments: 1) Add cardiac restriction to 45g CCHO diet 2) Collect HbA1c 3) Refer to outpatient RD/CDCES for weight management 4) Follow-up with cardiology and gastroenterology 5) Continue to monitor I&O, labs, and skin integrity Expected Outcomes/Goals: 1) appetite and labs to improve 2) gradual wt loss 3) f/u in 3-5 days Plan discussed with: Patient CASSIE HILL MD Feb 14, 2025 11:16
--- NOTE | 2025-02-14 14:40 | DVHPN2 ---
Subjective Patient reports that her vaginal bleeding has improved. Reviewed: Care Plan, H&P, Medications Changes from previous H/P or p: No Changes General: Per HPI Objective Vitals Vital Signs Date Time Temp Pulse Resp B/P (MAP) Pulse Ox O2 Delivery O2 Flow Rate FiO2 02/14/25 13:06 61 18 139/73 02/14/25 13:00 98.5 95 98.5 02/14/25 07:59 Room Air* 0 21 Intake/Output Intake and Output 02/14/25 07:00 Intake Total 1900 ml Output Total 675 ml Balance 1225 ml Intake Oral 1600 ml IV Total 300 ml Output Urine Total 675 ml # Voids 2 # Bowel Movements 4 General Appearance: Alert, Oriented X3, Cooperative, mild distress HEENT: Atraumatic, PERRLA Cardiovascular: Normal S1, Normal S2 Abdomen: Normal bowel sounds, Soft, No tenderness Musculoskeletal: Normal sensory function, Normal motor function Extremities: No clubbing, No cyanosis Skin: Dry, Intact Psych/Mental Status: Mental status NL, Mood NL Medications Current Medications Medications Dose Ordered Sig/Mario Route Start Time Stop Time Status Last Admin Dose Admin Cefepime HCl 50 ml @ 12.5 mls/hr Q12HR IV 02/06/25 22:00 02/14/25 08:40 12.5 MLS/HR Ondansetron HCl 4 mg Q4HP PRN IV 02/06/25 13:30 02/07/25 15:40 4 MG Acetaminophen 650 mg Q6HP PRN PO 02/06/25 13:30 Vancomycin HCl 0 ml @ 0 mls/hr PER PHARMACY IV 02/06/25 20:15 Diagnostic Test (Pha) 1 strip Q6HR 02/07/25 18:00 02/14/25 12:00 1 STRIP Insulin Human Regular Q6HR SC 02/07/25 18:00 02/14/25 13:15 9 UNITS Dextrose 50 ml UD PRN IV 02/07/25 15:45 Medroxyprogesterone Acetate 10 mg DAILY PO 02/08/25 05:30 02/14/25 08:26 10 MG Vancomycin HCl 100 ml @ 200 mls/hr Q12H IV 02/09/25 14:00 02/14/25 02:36 200 MLS/HR Hydromorphone HCl 0.5 mg Q4HPRN PRN IV 02/11/25 18:45 02/14/25 13:06 0.5 MG Morphine Sulfate 2 mg Q4HPRN PRN IV 02/11/25 19:00 02/12/25 15:38 2 MG Ferrous Sulfate 325 mg BIDWM PO 02/12/25 18:00 02/14/25 08:27 325 MG Insulin Glargine 40 units HS SC 02/14/25 22:00 UNV Laboratory Results Laboratory Tests 02/11/25 11:39 02/13/25 04:26 02/14/25 04:24 02/14/25 13:11 Urinalysis Test 02/06/25 15:29 02/11/25 21:41 Urine Color Light-gallo (Yellow) Urine Clarity Ex.turbid (Clear) Urine pH 5.5 (5.0-9.0) Urine Specific [place] 1.026 (1.001-1.035) Urine Protein 1+ (Negative) H Urine Ketones Negative (Negative) Urine Blood 2+ /uL (Negative) H Urine Nitrite Negative (Negative) Urine Bilirubin Negative (Negative) Urine Urobilinogen Normal mg/dL (Negative) Urine Leukocyte Esterase 3+ /uL (Negative) Urine RBC 176 /hpf (0 - 4) Urine Microscopic WBC 376 /HPF (0-5) H Urine Squamous Epithelial Cells Mod /hpf (<5) Urine Bacteria Few /hpf (None Seen) H Urine Glucose 4+ mg/dL (Normal) H Urine Test Negative (Negative) Microbiology Microbiology Date/Time Source Procedure Growth Status 02/07/25 04:03 Nose MRSA Screen - Final Complete 02/06/25 12:51 Blood Blood Culture - Final NO GROWTH AFTER 5 DAYS OF INCUBATION. Complete 02/06/25 09:28 Voided Urine Urine Culture - Final Complete Labs and/or images reviewed: Labs reviewed by me, Image(s) reviewed by me Assessment/Plan Assessment/Plan Impression: -vaginal bleeding -history of uterine fibroids -questionable uterine mass -diabetes mellitus -right BKA -history of prosthetic valve replacement secondary to endocarditis -morbid obesity -primary hypertension -pernicious drop in hematocrit -ureter stricture Plan: Events: Discussed case with Dr. Mendosa, with recommendations for nephrostomy tube placement. Hold Coumadin at this time. Start anticoagulation with Lovenox. Patient's H&H stable with minimal vaginal bleeding noted. -continue iron supplementation -continue Provera -continue regular insulin sliding scale Lantus -antihypertensives -pain management -urology consultation: Recommendations reviewed -H&H daily Total time spent with patient discussing and formulating plan of care: 35 minutes. This medical document was created using an electronic medical record system with [employer] system. Although this document has been carefully reviewed, there may still be some phonetic and typographical errors. These areas are purely typographical due to imperfections of the software programs, and do not reflect any compromise in the patient's medical care. Plan discussed with: Patient, Other (RN) My Orders Orders - JAJA CHANEL NP Procedure Category Date Status Time Electrocardigram EKG 02/14/25 Logged 10:15 Insulin Lantus PHA 02/14/25 Logged (Glargine) (Lantus) 22:00 Enoxaparin Sodium PHA 02/14/25 Verified (Lovenox) 22:00 Date of Service: Feb 14, 2025 Billing Provider: JAJA CHANEL NP Common Visit Codes: [id number] INP/OBS CARE(HIGH) JAJA CHANEL NP Feb 14, 2025 14:40
[2025-02-14] MEDS: ENOXAPARIN SOD 150 MG/1 ML SYRINGE SC SCH (22:00)
[2025-02-14] MEDS: INSULIN LANTUS (GLARGINE) 1 /0.01ml (100units/ml) SC SCH (23:29)
[2025-02-15] VITALS (8 sets, daily range): BP systolic 101–146; BP diastolic 56–84; PULSE 58–82; RESP 16–18; TEMP 97.2–98.1; O2SAT 94–98
[2025-02-15 07:15] LABS: Hemoglobin 7.7 g/dL (12.2-16.2)
[2025-02-15 07:17] LABS: Hematocrit 23.2 % (36.0-46.0)
--- NOTE | 2025-02-15 10:35 | ECG ---
[facility] Test Date: 2025-02-14 Test Time: 10:51:55 Pat Name: TITO CESPEDES Department: Respirat[facility] Room: 0270T A Gender: F Shake Packer: LILLY : 1980 Requested By: JAJA CHANEL Order Number: [id number] Reading MD: Quoc Rosales Measurements Intervals [place] Rate: 169 P: 0 OR: 0 QRS: -30 QRSD: 145 T: 89 QT: 440 QTc: 738 Interpretive Statements Accelerated junctional rhythm with underlying Sinus rhythm with A-V dissociation. Underlying left bundle branch block. Electronically Signed On 02-18-2025 13:05:56 PST by Quoc Rosales Please click the below link to view image of tracing.
--- NOTE | 2025-02-15 19:19 | DVHPN2 ---
Subjective Pain is better Reviewed: Care Plan, H&P, Medications Changes from previous H/P or p: No Changes General: Per HPI Objective Vitals Vital Signs Date Time Temp Pulse Resp B/P (MAP) Pulse Ox O2 Delivery O2 Flow Rate FiO2 02/15/25 18:34 60 16 110/74 02/15/25 17:00 97.6 95 97.6 02/15/25 08:00 Room Air* 0 21 Intake/Output Intake and Output 02/15/25 05:00 Intake Total 1865 ml Output Total 1770 ml Balance 95 ml Intake Oral 1665 ml IV Total 200 ml Output Urine Total 1770 ml # Bowel Movements 1 General Appearance: Alert, Oriented X3, Cooperative, mild distress HEENT: Atraumatic, PERRLA Cardiovascular: Normal S1, Normal S2 Abdomen: Normal bowel sounds, Soft, No tenderness Musculoskeletal: Normal sensory function, Normal motor function Extremities: No clubbing, No cyanosis Skin: Dry, Intact Psych/Mental Status: Mental status NL, Mood NL Medications Current Medications Medications Dose Ordered Sig/Mario Route Start Time Stop Time Status Last Admin Dose Admin Cefepime HCl 50 ml @ 12.5 mls/hr Q12HR IV 02/06/25 22:00 02/15/25 08:44 12.5 MLS/HR Ondansetron HCl 4 mg Q4HP PRN IV 02/06/25 13:30 02/07/25 15:40 4 MG Acetaminophen 650 mg Q6HP PRN PO 02/06/25 13:30 Vancomycin HCl 0 ml @ 0 mls/hr PER PHARMACY IV 02/06/25 20:15 Diagnostic Test (Pha) 1 strip Q6HR 02/07/25 18:00 02/15/25 18:00 1 STRIP Insulin Human Regular Q6HR SC 02/07/25 18:00 02/15/25 18:50 6 UNITS Dextrose 50 ml UD PRN IV 02/07/25 15:45 Medroxyprogesterone Acetate 10 mg DAILY PO 02/08/25 05:30 02/15/25 08:44 10 MG Vancomycin HCl 100 ml @ 200 mls/hr Q12H IV 02/09/25 14:00 02/15/25 14:15 200 MLS/HR Hydromorphone HCl 0.5 mg Q4HPRN PRN IV 02/11/25 18:45 02/15/25 18:34 0.5 MG Morphine Sulfate 2 mg Q4HPRN PRN IV 02/11/25 19:00 02/12/25 15:38 2 MG Ferrous Sulfate 325 mg BIDWM PO 02/12/25 18:00 02/15/25 18:33 325 MG Insulin Glargine 40 units HS SC 02/14/25 22:00 02/14/25 23:29 40 UNITS Enoxaparin Sodium 140 mg Q12HR SC 02/14/25 22:00 02/15/25 08:46 140 MG Laboratory Results Laboratory Tests 02/11/25 11:39 02/13/25 04:26 02/15/25 07:00 Urinalysis Test 02/06/25 15:29 02/11/25 21:41 Urine Color Light-gallo (Yellow) Urine Clarity Ex.turbid (Clear) Urine pH 5.5 (5.0-9.0) Urine Specific [place] 1.026 (1.001-1.035) Urine Protein 1+ (Negative) H Urine Ketones Negative (Negative) Urine Blood 2+ /uL (Negative) H Urine Nitrite Negative (Negative) Urine Bilirubin Negative (Negative) Urine Urobilinogen Normal mg/dL (Negative) Urine Leukocyte Esterase 3+ /uL (Negative) Urine RBC 176 /hpf (0 - 4) Urine Microscopic WBC 376 /HPF (0-5) H Urine Squamous Epithelial Cells Mod /hpf (<5) Urine Bacteria Few /hpf (None Seen) H Urine Glucose 4+ mg/dL (Normal) H Urine Test Negative (Negative) Microbiology Microbiology Date/Time Source Procedure Growth Status 02/07/25 04:03 Nose MRSA Screen - Final Complete 02/06/25 12:51 Blood Blood Culture - Final NO GROWTH AFTER 5 DAYS OF INCUBATION. 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 Mendosa, with recommendations for nephrostomy tube placement. Hold Coumadin at this time. Start anticoagulation with Lovenox. Patient's H&H stable with minimal vaginal bleeding noted. -continue iron supplementation -continue Provera -continue regular insulin sliding scale Lantus -antihypertensives -pain management -urology consultation: Recommendations reviewed -H&H daily Plan discussed with: Patient Date of Service: Feb 15, 2025 Billing Provider: AGNES WILLIAM MD Common Visit Codes: [id number] INP/OBS CARE(HIGH) AGNES WLILIAM MD Feb 15, 2025 19:19
--- NOTE | 2025-02-15 23:45 | DVHPN2 ---
Progress Note - Dictate Date Seen: Feb 15, 2025 Medical Necessity Reason Pt with a Central, PICC or Fol: No Subjective Patient was seen and evaluated in follow up. Patient is complaining of suprapubic discomfort. HGB 7.7, HCT 23.2. Telemetry reviewed. vital signs Vital Sign Date Time Temp Pulse Resp B/P (MAP) Pulse Ox O2 Delivery O2 Flow Rate FiO2 02/15/25 09:00 98.0 58 16 118/63 (81) 97 98.0 02/15/25 08:00 Room Air* 0 21 Total Intake and Output 02/14/25 02/14/25 02/15/25 15:00 23:00 07:00 Intake Total 50 ml 1200 ml 615 ml Output Total 1520 ml 250 ml Balance 50 ml -320 ml 365 ml medications Current Medications Medications Dose Ordered Sig/Mario Route Start Time Stop Time Status Last Admin Dose Admin Cefepime HCl 50 ml @ 12.5 mls/hr Q12HR IV 02/06/25 22:00 02/15/25 08:44 12.5 MLS/HR Ondansetron HCl 4 mg Q4HP PRN IV 02/06/25 13:30 02/07/25 15:40 4 MG Acetaminophen 650 mg Q6HP PRN PO 02/06/25 13:30 Vancomycin HCl 0 ml @ 0 mls/hr PER PHARMACY IV 02/06/25 20:15 Diagnostic Test (Pha) 1 strip Q6HR 02/07/25 18:00 02/15/25 05:46 1 STRIP Insulin Human Regular Q6HR SC 02/07/25 18:00 02/15/25 05:46 3 UNITS Dextrose 50 ml UD PRN IV 02/07/25 15:45 Medroxyprogesterone Acetate 10 mg DAILY PO 02/08/25 05:30 02/15/25 08:44 10 MG Vancomycin HCl 100 ml @ 200 mls/hr Q12H IV 02/09/25 14:00 02/15/25 02:21 200 MLS/HR Hydromorphone HCl 0.5 mg Q4HPRN PRN IV 02/11/25 18:45 02/15/25 08:49 0.5 MG Morphine Sulfate 2 mg Q4HPRN PRN IV 02/11/25 19:00 02/12/25 15:38 2 MG Ferrous Sulfate 325 mg BIDWM PO 02/12/25 18:00 02/15/25 08:42 325 MG Insulin Glargine 40 units HS SC 02/14/25 22:00 02/14/25 23:29 40 UNITS Enoxaparin Sodium 140 mg Q12HR SC 02/14/25 22:00 02/15/25 08:46 140 MG objective GENERAL: Alert and oriented x 3. No acute distress. Obese. EYES: PERRL, EOMI. Anicteric. HENT: Moist mucous membranes. LUNGS: Clear to auscultation bilaterally. CARDIOVASCULAR: Regular rate and rhythm. ABDOMEN: Soft, nontender and nondistended. EXTREMITIES: No edema. Right BKA. NEUROLOGIC: No focal neurological deficits. SKIN: Warm, dry. laboratory and microbiology Laboratory Tests 02/15/25 07:00 02/13/25 04:26 02/11/25 11:39 Test 02/11/25 11:39 Range/Units Serum Glucose 255 H 74-106 mg/dL Problem List Vaginal bleeding. History of uterine fibroids. Questionable uterine mass. Diabetes mellitus. Right BKA. 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 Morbid obesity. Primary hypertension. 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 Assessment/Plan Continued all current supportive medical care. DVT prophylactics. IV antibiotics as ordered. Dilaudid for pain management. Additional plan as per the hospital course. Dietary Evaluation Review Recommendations by RD: Dietary education by RD Comments: 1) Add cardiac restriction to 45g CCHO diet 2) Collect HbA1c 3) Refer to outpatient RD/CDCES for weight management 4) Follow-up with cardiology and gastroenterology 5) Continue to monitor I&O, labs, and skin integrity Expected Outcomes/Goals: 1) appetite and labs to improve 2) gradual wt loss 3) f/u in 3-5 days Plan discussed with: Patient CASSIE HILL MD Feb 15, 2025 12:31
[2025-02-16] VITALS (8 sets, daily range): BP systolic 113–163; BP diastolic 52–77; PULSE 55–64; RESP 15–20; TEMP 97.3–98.1; O2SAT 93–98
[2025-02-16] MEDS: HYDROcodone-ACET 5/325MG TAB PO PRN (04:18)
[2025-02-16 06:24] LABS: Hemoglobin 7.6 g/dL (12.2-16.2)
[2025-02-16 06:26] LABS: Hematocrit 22.7 % (36.0-46.0); Mean Corpuscular Hemoglobin 32.9 pg (28.0-32.0); Mean Corpuscular Volume 98.0 fL (80.0-100.0); Nucleated Red Blood Cells % 0.8 %
--- NOTE | 2025-02-16 18:14 | DVHPN2 ---
Subjective Pain is better Reviewed: Care Plan, H&P, Medications Changes from previous H/P or p: No Changes General: Per HPI Objective Vitals Vital Signs Date Time Temp Pulse Resp B/P (MAP) Pulse Ox O2 Delivery O2 Flow Rate FiO2 02/16/25 17:10 72 18 144/62 02/16/25 17:02 97.4 95 97.4 02/16/25 08:00 Room Air* 0 21 Intake/Output Intake and Output 02/16/25 04:59 Intake Total 2070 ml Output Total 250 ml Balance 1820 ml Intake Oral 2070 ml Output Urine Total 250 ml # Voids 3 # Bowel Movements 2 General Appearance: Alert, Oriented X3, Cooperative, mild distress HEENT: Atraumatic, PERRLA Cardiovascular: Normal S1, Normal S2 Abdomen: Normal bowel sounds, Soft, No tenderness Musculoskeletal: Normal sensory function, Normal motor function Extremities: No clubbing, No cyanosis Skin: Dry, Intact Psych/Mental Status: Mental status NL, Mood NL Medications Current Medications Medications Dose Ordered Sig/Mario Route Start Time Stop Time Status Last Admin Dose Admin Cefepime HCl 50 ml @ 12.5 mls/hr Q12HR IV 02/06/25 22:00 02/16/25 09:02 12.5 MLS/HR Ondansetron HCl 4 mg Q4HP PRN IV 02/06/25 13:30 02/07/25 15:40 4 MG Acetaminophen 650 mg Q6HP PRN PO 02/06/25 13:30 Vancomycin HCl 0 ml @ 0 mls/hr PER PHARMACY IV 02/06/25 20:15 Diagnostic Test (Pha) 1 strip Q6HR 02/07/25 18:00 02/16/25 17:18 1 STRIP Insulin Human Regular Q6HR SC 02/07/25 18:00 02/16/25 17:28 9 UNITS Dextrose 50 ml UD PRN IV 02/07/25 15:45 Medroxyprogesterone Acetate 10 mg DAILY PO 02/08/25 05:30 02/16/25 09:02 10 MG Vancomycin HCl 100 ml @ 200 mls/hr Q12H IV 02/09/25 14:00 02/16/25 14:09 200 MLS/HR Hydromorphone HCl 0.5 mg Q4HPRN PRN IV 02/11/25 18:45 02/16/25 10:50 0.5 MG Morphine Sulfate 2 mg Q4HPRN PRN IV 02/11/25 19:00 02/16/25 16:40 2 MG Ferrous Sulfate 325 mg BIDWM PO 02/12/25 18:00 02/16/25 17:18 325 MG Insulin Glargine 40 units HS SC 02/14/25 22:00 02/15/25 22:22 40 UNITS Enoxaparin Sodium 140 mg Q12HR SC 02/14/25 22:00 02/16/25 09:02 140 MG Acetaminophen/ Hydrocodone Bitart 1 tab Q6HPRN PRN PO 02/16/25 04:15 02/16/25 14:13 1 TAB Laboratory Results Laboratory Tests 02/11/25 11:39 02/16/25 04:34 Urinalysis Test 02/06/25 15:29 02/11/25 21:41 Urine Color Light-gallo (Yellow) Urine Clarity Ex.turbid (Clear) Urine pH 5.5 (5.0-9.0) Urine Specific [place] 1.026 (1.001-1.035) Urine Protein 1+ (Negative) H Urine Ketones Negative (Negative) Urine Blood 2+ /uL (Negative) H Urine Nitrite Negative (Negative) Urine Bilirubin Negative (Negative) Urine Urobilinogen Normal mg/dL (Negative) Urine Leukocyte Esterase 3+ /uL (Negative) Urine RBC 176 /hpf (0 - 4) Urine Microscopic WBC 376 /HPF (0-5) H Urine Squamous Epithelial Cells Mod /hpf (<5) Urine Bacteria Few /hpf (None Seen) H Urine Glucose 4+ mg/dL (Normal) H Urine Test Negative (Negative) Microbiology Microbiology Date/Time Source Procedure Growth Status 02/07/25 04:03 Nose MRSA Screen - Final Complete 02/06/25 12:51 Blood Blood Culture - Final NO GROWTH AFTER 5 DAYS OF INCUBATION. 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 Mendosa, with recommendations for nephrostomy tube placement. Hold Coumadin at this time. Start anticoagulation with Lovenox. Patient's H&H stable with minimal vaginal bleeding noted. -continue iron supplementation -continue Provera -continue regular insulin sliding scale Lantus -antihypertensives -pain management -urology consultation: Recommendations reviewed -H&H daily Plan discussed with: Patient Date of Service: Feb 16, 2025 Billing Provider: AGNES WILLIAM MD Common Visit Codes: [id number] INP/OBS CARE(HIGH) AGNES WILLIAM MD Feb 16, 2025 18:14
--- NOTE | 2025-02-16 22:57 | DVHPN2 ---
Progress Note - Dictate Date Seen: Feb 16, 2025 Medical Necessity Reason Pt with a Central, PICC or Fol: No Subjective Patient was seen and evaluated in follow up. Patient is complaining of persistent suprapubic discomfort. HGB 7.6, HCT 22.7, GLUC 211. Telemetry reviewed. vital signs Vital Sign Date Time Temp Pulse Resp B/P (MAP) Pulse Ox O2 Delivery O2 Flow Rate FiO2 02/16/25 13:00 97.4 55 17 120/65 (83) 97 97.4 02/16/25 08:00 Room Air* 0 21 Total Intake and Output 02/15/25 02/15/25 02/16/25 15:00 23:00 07:00 Intake Total 1605 ml 1125 ml Output Total 850 ml Balance 1605 ml 275 ml medications Current Medications Medications Dose Ordered Sig/Mario Route Start Time Stop Time Status Last Admin Dose Admin Cefepime HCl 50 ml @ 12.5 mls/hr Q12HR IV 02/06/25 22:00 02/16/25 09:02 12.5 MLS/HR Ondansetron HCl 4 mg Q4HP PRN IV 02/06/25 13:30 02/07/25 15:40 4 MG Acetaminophen 650 mg Q6HP PRN PO 02/06/25 13:30 Vancomycin HCl 0 ml @ 0 mls/hr PER PHARMACY IV 02/06/25 20:15 Diagnostic Test (Pha) 1 strip Q6HR 02/07/25 18:00 02/16/25 12:07 1 STRIP Insulin Human Regular Q6HR SC 02/07/25 18:00 02/16/25 12:08 6 UNITS Dextrose 50 ml UD PRN IV 02/07/25 15:45 Medroxyprogesterone Acetate 10 mg DAILY PO 02/08/25 05:30 02/16/25 09:02 10 MG Vancomycin HCl 100 ml @ 200 mls/hr Q12H IV 02/09/25 14:00 02/16/25 14:09 200 MLS/HR Hydromorphone HCl 0.5 mg Q4HPRN PRN IV 02/11/25 18:45 02/16/25 10:50 0.5 MG Morphine Sulfate 2 mg Q4HPRN PRN IV 02/11/25 19:00 02/16/25 00:36 2 MG Ferrous Sulfate 325 mg BIDWM PO 02/12/25 18:00 02/16/25 09:02 325 MG Insulin Glargine 40 units HS SC 02/14/25 22:00 02/15/25 22:22 40 UNITS Enoxaparin Sodium 140 mg Q12HR SC 02/14/25 22:00 02/16/25 09:02 140 MG Acetaminophen/ Hydrocodone Bitart 1 tab Q6HPRN PRN PO 02/16/25 04:15 02/16/25 14:13 1 TAB objective GENERAL: Alert and oriented x 3. No acute distress. Obese. EYES: PERRL, EOMI. Anicteric. HENT: Moist mucous membranes. LUNGS: Clear to auscultation bilaterally. CARDIOVASCULAR: Regular rate and rhythm. ABDOMEN: Soft, nontender and nondistended. EXTREMITIES: No edema. Right BKA. NEUROLOGIC: No focal neurological deficits. SKIN: Warm, dry. laboratory and microbiology Laboratory Tests 02/16/25 04:34 02/11/25 11:39 Test 02/11/25 11:39 Range/Units Serum Glucose 255 H 74-106 mg/dL Problem List Vaginal bleeding. History of uterine fibroids. Questionable uterine mass. Diabetes mellitus. Right BKA. 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 Morbid obesity. Primary hypertension. 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 Assessment/Plan Continued all current supportive medical care. DVT prophylactics. IV antibiotics as ordered. [place] and Dilaudid for pain management. Additional plan as per the hospital course. Dietary Evaluation Review Recommendations by RD: Dietary education by RD Comments: 1) Add cardiac restriction to 45g CCHO diet 2) Collect HbA1c 3) Refer to outpatient RD/CDCES for weight management 4) Follow-up with cardiology and gastroenterology 5) Continue to monitor I&O, labs, and skin integrity Expected Outcomes/Goals: 1) appetite and labs to improve 2) gradual wt loss 3) f/u in 3-5 days Plan discussed with: Patient CASSIE HILL MD Feb 16, 2025 14:16
[2025-02-17] VITALS (8 sets, daily range): BP systolic 116–146; BP diastolic 64–88; PULSE 53–68; RESP 17–20; TEMP 97–98.1; O2SAT 92–98
--- NOTE | 2025-02-17 07:37 | ECG ---
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 First-degree AV block. Paired ventricular premature complexes Anterolateral infarct, age indeterminate Prolonged QT interval Electronically Signed On 02-18-2025 13:02:48 PST by Quoc Rosales Please click the below link to view image of tracing.
[2025-02-17] MEDS: ACETAMINOPHEN 325 MG TAB PO PRN (09:08)
--- NOTE | 2025-02-17 12:28 | DVHPN2 ---
Subjective Denies any vaginal bleeding Reviewed: Care Plan, H&P, Medications Changes from previous H/P or p: No Changes General: Per HPI Objective Vitals Vital Signs Date Time Temp Pulse Resp B/P (MAP) Pulse Ox O2 Delivery O2 Flow Rate FiO2 02/17/25 10:59 62 18 116/74 02/17/25 08:34 98.0 94 98.0 02/17/25 08:00 Room Air* 0 21 Intake/Output Intake and Output 02/17/25 07:00 Intake Total 1600 ml Balance 1600 ml Intake Oral 1300 ml IV Total 300 ml # Voids 7 # Bowel Movements 1 General Appearance: Alert, Oriented X3, Cooperative, mild distress HEENT: Atraumatic, PERRLA Cardiovascular: Normal S1, Normal S2 Abdomen: Normal bowel sounds, Soft, No tenderness Musculoskeletal: Normal sensory function, Normal motor function Extremities: No clubbing, No cyanosis Skin: Dry, Intact Psych/Mental Status: Mental status NL, Mood NL Medications Current Medications Medications Dose Ordered Sig/Mario Route Start Time Stop Time Status Last Admin Dose Admin Cefepime HCl 50 ml @ 12.5 mls/hr Q12HR IV 02/06/25 22:00 02/17/25 09:08 12.5 MLS/HR Ondansetron HCl 4 mg Q4HP PRN IV 02/06/25 13:30 02/07/25 15:40 4 MG Acetaminophen 650 mg Q6HP PRN PO 02/06/25 13:30 02/17/25 09:08 650 MG Vancomycin HCl 0 ml @ 0 mls/hr PER PHARMACY IV 02/06/25 20:15 Diagnostic Test (Pha) 1 strip Q6HR 02/07/25 18:00 02/17/25 11:48 1 STRIP Insulin Human Regular Q6HR SC 02/07/25 18:00 02/17/25 05:28 3 UNITS Dextrose 50 ml UD PRN IV 02/07/25 15:45 Medroxyprogesterone Acetate 10 mg DAILY PO 02/08/25 05:30 02/16/25 09:02 10 MG Vancomycin HCl 100 ml @ 200 mls/hr Q12H IV 02/09/25 14:00 02/17/25 02:00 200 MLS/HR Hydromorphone HCl 0.5 mg Q4HPRN PRN IV 02/11/25 18:45 02/17/25 05:16 0.5 MG Morphine Sulfate 2 mg Q4HPRN PRN IV 02/11/25 19:00 02/17/25 10:29 2 MG Ferrous Sulfate 325 mg BIDWM PO 02/12/25 18:00 02/17/25 09:08 325 MG Insulin Glargine 40 units HS SC 02/14/25 22:00 02/16/25 21:17 40 UNITS Enoxaparin Sodium 140 mg Q12HR SC 02/14/25 22:00 02/16/25 21:07 140 MG Acetaminophen/ Hydrocodone Bitart 1 tab Q6HPRN PRN PO 02/16/25 04:15 02/17/25 04:15 1 TAB Laboratory Results Laboratory Tests 02/11/25 11:39 02/16/25 04:34 Urinalysis Test 02/06/25 15:29 02/11/25 21:41 Urine Color Light-gallo (Yellow) Urine Clarity Ex.turbid (Clear) Urine pH 5.5 (5.0-9.0) Urine Specific [place] 1.026 (1.001-1.035) Urine Protein 1+ (Negative) H Urine Ketones Negative (Negative) Urine Blood 2+ /uL (Negative) H Urine Nitrite Negative (Negative) Urine Bilirubin Negative (Negative) Urine Urobilinogen Normal mg/dL (Negative) Urine Leukocyte Esterase 3+ /uL (Negative) Urine RBC 176 /hpf (0 - 4) Urine Microscopic WBC 376 /HPF (0-5) H Urine Squamous Epithelial Cells Mod /hpf (<5) Urine Bacteria Few /hpf (None Seen) H Urine Glucose 4+ mg/dL (Normal) H Urine Test Negative (Negative) Microbiology Microbiology Date/Time Source Procedure Growth Status 02/07/25 04:03 Nose MRSA Screen - Final Complete 02/06/25 12:51 Blood Blood Culture - Final NO GROWTH AFTER 5 DAYS OF INCUBATION. Complete 02/06/25 09:28 Voided Urine Urine Culture - Final Complete Labs and/or images reviewed: Labs reviewed by me, Image(s) reviewed by me Assessment/Plan Assessment/Plan Impression: -vaginal bleeding -history of uterine fibroids -questionable uterine mass -diabetes mellitus -right BKA -history of prosthetic valve replacement secondary to endocarditis -morbid obesity -primary hypertension -pernicious drop in hematocrit -ureter stricture Plan: Events: IR: Nephrostomy tube not indicated. Start bridge therapy with Coumadin and Lovenox -continue iron supplementation -continue Provera -continue regular insulin sliding scale Lantus -antihypertensives -pain management -urology consultation: Recommendations reviewed -INR daily Total time spent with patient discussing and formulating plan of care: 35 minutes. This medical document was created using an electronic medical record system with [employer] dictation system. Although this document has been carefully reviewed, there may still be some phonetic and typographical errors. These areas are purely typographical due to imperfections of the software programs, and do not reflect any compromise in the patient's medical care. Plan discussed with: Patient, Other (RN) My Orders Orders - JAJA CHANEL NP Procedure Category Date Status Time Warfarin Sodium PHA 02/17/25 Transmitted (Coumadin) 12:30 Date of Service: Feb 17, 2025 Billing Provider: JAJA CHANEL NP Common Visit Codes: [id number] INP/OBS CARE(HIGH) JAJA CHAENL NP Feb 17, 2025 12:28
[2025-02-17 15:13] LABS: Hematocrit 27.9 % (36.0-46.0); Hemoglobin 8.8 g/dL (12.2-16.2); Mean Corpuscular Hemoglobin 33.1 pg (28.0-32.0); Mean Corpuscular Volume 105.1 fL (80.0-100.0); Nucleated Red Blood Cells % 1.1 %
[2025-02-17 15:33] LABS: INR 1.03 (0.9-1.15); Partial Thromboplastin Time 31.3 SEC (24.5-34.5); Prothrombin Time 10.9 sec (9.3-11.8)
[2025-02-17] MEDS: WARFARIN SODIUM 5 MG TAB PO ONE (17:03)
--- NOTE | 2025-02-17 23:46 | DVHPN2 ---
Progress Note - Dictate Date Seen: Feb 17, 2025 Medical Necessity Reason Pt with a Central, PICC or Fol: No Subjective Patient was seen and evaluated in follow up. No overnight events. Patient is on 2 LPM NC. Patient is complaining of persistent suprapubic discomfort. HGB 8.8, HCT 27.9. BS are elevated in the 250s. Telemetry reviewed. vital signs Vital Sign Date Time Temp Pulse Resp B/P (MAP) Pulse Ox O2 Delivery O2 Flow Rate FiO2 02/17/25:25 54 19 130/79 02/17/25 21:00 98.0 92 98.0 02/17/25 20:00 Room Air* 0 21 Total Intake and Output 02/16/25 02/16/25 02/17/25 15:00 23:00 07:00 Intake Total 150 ml 900 ml 550 ml Balance 150 ml 900 ml 550 ml medications Current Medications Medications Dose Ordered Sig/Mario Route Start Time Stop Time Status Last Admin Dose Admin Cefepime HCl 50 ml @ 12.5 mls/hr Q12HR IV 02/06/25 22:00 02/17/25 21:24 12.5 MLS/HR Ondansetron HCl 4 mg Q4HP PRN IV 02/06/25 13:30 02/07/25 15:40 4 MG Acetaminophen 650 mg Q6HP PRN PO 02/06/25 13:30 02/17/25 09:08 650 MG Diagnostic Test (Pha) 1 strip Q6HR 02/07/25 18:00 02/17/25 17:36 1 STRIP Insulin Human Regular Q6HR SC 02/07/25 18:00 02/17/25 17:45 6 UNITS Dextrose 50 ml UD PRN IV 02/07/25 15:45 Medroxyprogesterone Acetate 10 mg DAILY PO 02/08/25 05:30 02/17/25 15:35 10 MG Hydromorphone HCl 0.5 mg Q4HPRN PRN IV 02/11/25 18:45 02/17/25 21:25 0.5 MG Morphine Sulfate 2 mg Q4HPRN PRN IV 02/11/25 19:00 02/17/25 10:29 2 MG Ferrous Sulfate 325 mg BIDWM PO 02/12/25 18:00 02/17/25 17:03 325 MG Insulin Glargine 40 units HS SC 02/14/25 22:00 02/17/25 21:54 40 UNITS Enoxaparin Sodium 140 mg Q12HR SC 02/14/25 22:00 02/17/25 21:22 140 MG Acetaminophen/ Hydrocodone Bitart 1 tab Q6HPRN PRN PO 02/16/25 04:15 02/17/25 17:37 1 TAB Warfarin Sodium RX PROTOCOL PER PHARMACY PO 02/17/25 12:30 objective GENERAL: Alert and oriented x 3. No acute distress. Obese. EYES: PERRL, EOMI. Anicteric. HENT: Moist mucous membranes. LUNGS: Clear to auscultation bilaterally. CARDIOVASCULAR: Regular rate and rhythm. ABDOMEN: Soft, nontender and nondistended. EXTREMITIES: No edema. Right BKA. NEUROLOGIC: No focal neurological deficits. SKIN: Warm, dry. laboratory and microbiology Laboratory Tests 02/17/25 14:45 02/16/25 04:34 02/11/25 11:39 Test 02/11/25 11:39 Range/Units Serum Glucose 255 H 74-106 mg/dL Problem List Vaginal bleeding. History of uterine fibroids. Questionable uterine mass. Diabetes mellitus. Right BKA. 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 Morbid obesity. Primary hypertension. 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 Assessment/Plan Continued all current supportive medical care. DVT prophylactics. IV antibiotics as ordered. [place] and Dilaudid for pain management. Additional plan as per the hospital course. Dietary Evaluation Review Recommendations by RD: Dietary education by RD Comments: 1) Add cardiac restriction to 45g CCHO diet 2) Collect HbA1c 3) Refer to outpatient RD/CDCES for weight management 4) Follow-up with cardiology and gastroenterology 5) Continue to monitor I&O, labs, and skin integrity Expected Outcomes/Goals: 1) appetite and labs to improve 2) gradual wt loss 3) f/u in 3-5 days Plan discussed with: Patient CASSIE HILL MD Feb 17, 2025 23:46
[2025-02-18] VITALS (8 sets, daily range): BP systolic 123–156; BP diastolic 66–92; PULSE 56–65; RESP 17–20; TEMP 97.2–98.1; O2SAT 94–99
[2025-02-18 06:32] LABS: Hemoglobin 8.4 g/dL (12.2-16.2)
[2025-02-18 06:34] LABS: Hematocrit 25.4 % (36.0-46.0); Mean Corpuscular Hemoglobin 32.5 pg (28.0-32.0); Mean Corpuscular Volume 98.6 fL (80.0-100.0)
[2025-02-18 06:56] LABS: INR 1.09 (0.9-1.15); Partial Thromboplastin Time 33.3 SEC (24.5-34.5); Prothrombin Time 11.5 sec (9.3-11.8)
[2025-02-18 08:53] LABS: Nucleated Red Blood Cells % 1.0 %; Total Cells Counted 100.0 (100)
--- NOTE | 2025-02-18 13:09 | DVHPN2 ---
Subjective Denies any vaginal bleeding Reviewed: Care Plan, H&P, Medications Changes from previous H/P or p: No Changes General: Per HPI Objective Vitals Vital Signs Date Time Temp Pulse Resp B/P (MAP) Pulse Ox O2 Delivery O2 Flow Rate FiO2 02/18/25 13:05 97.8 65 17 133/80 (97) 94 97.8 02/17/25 20:00 Room Air* 0 21 Intake/Output Intake and Output 02/18/25 07:00 Intake Total 1425 ml Balance 1425 ml Intake Oral 1325 ml IV Total 100 ml # Voids 13 General Appearance: Alert, Oriented X3, Cooperative, mild distress HEENT: Atraumatic, PERRLA Cardiovascular: Normal S1, Normal S2 Abdomen: Normal bowel sounds, Soft, No tenderness Musculoskeletal: Normal sensory function, Normal motor function Extremities: No clubbing, No cyanosis Skin: Dry, Intact Psych/Mental Status: Mental status NL, Mood NL Medications Current Medications Medications Dose Ordered Sig/Mario Route Start Time Stop Time Status Last Admin Dose Admin Cefepime HCl 50 ml @ 12.5 mls/hr Q12HR IV 02/06/25 22:00 02/18/25 08:42 12.5 MLS/HR Ondansetron HCl 4 mg Q4HP PRN IV 02/06/25 13:30 02/07/25 15:40 4 MG Acetaminophen 650 mg Q6HP PRN PO 02/06/25 13:30 02/17/25 09:08 650 MG Diagnostic Test (Pha) 1 strip Q6HR 02/07/25 18:00 02/18/25 11:58 1 STRIP Insulin Human Regular Q6HR SC 02/07/25 18:00 02/18/25 12:07 6 UNITS Dextrose 50 ml UD PRN IV 02/07/25 15:45 Medroxyprogesterone Acetate 10 mg DAILY PO 02/08/25 05:30 02/18/25 08:43 10 MG Hydromorphone HCl 0.5 mg Q4HPRN PRN IV 02/11/25 18:45 02/18/25 08:44 0.5 MG Morphine Sulfate 2 mg Q4HPRN PRN IV 02/11/25 19:00 02/17/25 10:29 2 MG Ferrous Sulfate 325 mg BIDWM PO 02/12/25 18:00 02/18/25 08:42 325 MG Insulin Glargine 40 units HS SC 02/14/25 22:00 02/17/25 21:54 40 UNITS Enoxaparin Sodium 140 mg Q12HR SC 02/14/25 22:00 02/18/25 09:09 140 MG Acetaminophen/ Hydrocodone Bitart 1 tab Q6HPRN PRN PO 02/16/25 04:15 02/18/25 05:49 1 TAB Warfarin Sodium RX PROTOCOL PER PHARMACY PO 02/17/25 12:30 Laboratory Results Laboratory Tests 02/11/25 11:39 02/16/25 04:34 02/18/25 04:28 Coagulation Test 02/17/25 14:45 02/18/25 04:28 Prothrombin Time 10.9 sec (9.3-11.8) 11.5 sec (9.3-11.8) Prothrombin Time INR 1.03 (0.9-1.15) 1.09 (0.9-1.15) Activated Partial Thromboplast Time 31.3 SEC (24.5-34.5) 33.3 SEC (24.5-34.5) Urinalysis Test 02/06/25 15:29 02/11/25 21:41 Urine Color Light-gallo (Yellow) Urine Clarity Ex.turbid (Clear) Urine pH 5.5 (5.0-9.0) Urine Specific [place] 1.026 (1.001-1.035) Urine Protein 1+ (Negative) H Urine Ketones Negative (Negative) Urine Blood 2+ /uL (Negative) H Urine Nitrite Negative (Negative) Urine Bilirubin Negative (Negative) Urine Urobilinogen Normal mg/dL (Negative) Urine Leukocyte Esterase 3+ /uL (Negative) Urine RBC 176 /hpf (0 - 4) Urine Microscopic WBC 376 /HPF (0-5) H Urine Squamous Epithelial Cells Mod /hpf (<5) Urine Bacteria Few /hpf (None Seen) H Urine Glucose 4+ mg/dL (Normal) H Urine Test Negative (Negative) Microbiology Microbiology Date/Time Source Procedure Growth Status 02/07/25 04:03 Nose MRSA Screen - Final Complete 02/06/25 12:51 Blood Blood Culture - Final NO GROWTH AFTER 5 DAYS OF INCUBATION. Complete 02/06/25 09:28 Voided Urine Urine Culture - Final Complete Labs and/or images reviewed: Labs reviewed by me, Image(s) reviewed by me Assessment/Plan Assessment/Plan Impression: -vaginal bleeding -history of uterine fibroids -questionable uterine mass -diabetes mellitus -right BKA -history of prosthetic valve replacement secondary to endocarditis -morbid obesity -primary hypertension -pernicious drop in hematocrit -ureter stricture Plan: Events: INR 1.09. Continue bridge therapy. -continue iron supplementation -continue Provera -continue regular insulin sliding scale Lantus -antihypertensives -pain management -urology consultation: Recommendations reviewed -INR daily Total time spent with patient discussing and formulating plan of care: 35 minutes. This medical document was created using an electronic medical record system with [employer] dictation system. Although this document has been carefully reviewed, there may still be some phonetic and typographical errors. These areas are purely typographical due to imperfections of the software programs, and do not reflect any compromise in the patient's medical care. Plan discussed with: Patient, Other (RN) My Orders Orders - JAJA CHANEL NP Procedure Category Date Status Time Warfarin Sodium PHA 02/18/25 In Process (Coumadin) 17:00 Coumadin Per Pharmacy [facility] 02/18/25 In Process Protcol 17:00 PTPTT LAB 02/19/25 Verified 04:00 Date of Service: Feb 18, 2025 Billing Provider: JAJA CHANEL NP Common Visit Codes: [id number] INP/OBS CARE(HIGH) JAJA CHANEL NP Feb 18, 2025 13:09
[2025-02-18] MEDS: WARFARIN SODIUM 5 MG TAB PO ONE (17:12)
--- NOTE | 2025-02-18 23:59 | DVHPN2 ---
Progress Note - Dictate Date Seen: Feb 18, 2025 Medical Necessity Reason Pt with a Central, PICC or Fol: No Subjective Patient was seen and evaluated in follow up. Patient is complaining of mild persistent suprapubic discomfort. HGB 8.4, HCT 25.4, GLUC 203. Telemetry reviewed. vital signs Vital Sign Date Time Temp Pulse Resp B/P (MAP) Pulse Ox O2 Delivery O2 Flow Rate FiO2 02/18/25 14:01 58 20 114/86 02/18/25 13:05 97.8 94 97.8 02/18/25 08:00 Room Air* 0 21 Total Intake and Output 02/17/25 02/17/25 02/18/25 15:00 23:00 07:00 Intake Total 50 ml 425 ml 950 ml Balance 50 ml 425 ml 950 ml medications Current Medications Medications Dose Ordered Sig/Mario Route Start Time Stop Time Status Last Admin Dose Admin Cefepime HCl 50 ml @ 12.5 mls/hr Q12HR IV 02/06/25 22:00 02/18/25 08:42 12.5 MLS/HR Ondansetron HCl 4 mg Q4HP PRN IV 02/06/25 13:30 02/07/25 15:40 4 MG Acetaminophen 650 mg Q6HP PRN PO 02/06/25 13:30 02/17/25 09:08 650 MG Diagnostic Test (Pha) 1 strip Q6HR 02/07/25 18:00 02/18/25 11:58 1 STRIP Insulin Human Regular Q6HR SC 02/07/25 18:00 02/18/25 12:07 6 UNITS Dextrose 50 ml UD PRN IV 02/07/25 15:45 Medroxyprogesterone Acetate 10 mg DAILY PO 02/08/25 05:30 02/18/25 08:43 10 MG Hydromorphone HCl 0.5 mg Q4HPRN PRN IV 02/11/25 18:45 02/18/25 13:31 0.5 MG Morphine Sulfate 2 mg Q4HPRN PRN IV 02/11/25 19:00 02/17/25 10:29 2 MG Ferrous Sulfate 325 mg BIDWM PO 02/12/25 18:00 02/18/25 08:42 325 MG Insulin Glargine 40 units HS SC 02/14/25 22:00 02/17/25 21:54 40 UNITS Enoxaparin Sodium 140 mg Q12HR SC 02/14/25 22:00 02/18/25 09:09 140 MG Acetaminophen/ Hydrocodone Bitart 1 tab Q6HPRN PRN PO 02/16/25 04:15 02/18/25 05:49 1 TAB Warfarin Sodium RX PROTOCOL PER PHARMACY PO 02/17/25 12:30 objective GENERAL: Alert and oriented x 3. No acute distress. Obese. EYES: PERRL, EOMI. Anicteric. HENT: Moist mucous membranes. LUNGS: Clear to auscultation bilaterally. CARDIOVASCULAR: Regular rate and rhythm. ABDOMEN: Soft, nontender and nondistended. EXTREMITIES: No edema. Right BKA. NEUROLOGIC: No focal neurological deficits. SKIN: Warm, dry. laboratory and microbiology Laboratory Tests 02/18/25 04:28 02/16/25 04:34 02/11/25 11:39 Test 02/11/25 11:39 Range/Units Serum Glucose 255 H 74-106 mg/dL Problem List Vaginal bleeding. History of uterine fibroids. Questionable uterine mass. Diabetes mellitus. Right BKA. 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 Morbid obesity. Primary hypertension. 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 Assessment/Plan Continued all current supportive medical care. DVT prophylactics. IV antibiotics as ordered. [place] and Dilaudid for pain management. Additional plan as per the hospital course. Dietary Evaluation Review Recommendations by RD: Dietary education by RD Comments: 1) Add cardiac restriction to 45g CCHO diet 2) Collect HbA1c 3) Refer to outpatient RD/CDCES for weight management 4) Follow-up with cardiology and gastroenterology 5) Continue to monitor I&O, labs, and skin integrity Expected Outcomes/Goals: 1) appetite and labs to improve 2) gradual wt loss 3) f/u in 3-5 days Plan discussed with: Patient CASSIE HILL MD Feb 18, 2025 16:42
[2025-02-19] VITALS (8 sets, daily range): BP systolic 131–171; BP diastolic 75–88; PULSE 58–70; RESP 16–19; TEMP 97.5–98.5; O2SAT 93–96
[2025-02-19 05:46] LABS: INR 1.19 (0.9-1.15); Partial Thromboplastin Time 37.0 SEC (24.5-34.5); Prothrombin Time 12.4 sec (9.3-11.8)
--- NOTE | 2025-02-19 09:59 | DVHPN2 ---
Subjective Denies any vaginal bleeding Reviewed: Care Plan, H&P, Medications Changes from previous H/P or p: No Changes General: Per HPI Objective Vitals Vital Signs Date Time Temp Pulse Resp B/P (MAP) Pulse Ox O2 Delivery O2 Flow Rate FiO2 02/19/25 08:00 Room Air* 0 21 02/19/25 05:00 98.0 64 19 132/82 (99) 96 98.0 Intake/Output Intake and Output 02/19/25 07:00 Intake Total 1775 ml Balance 1775 ml Intake Oral 1725 ml IV Total 50 ml # Voids 14 # Bowel Movements 1 General Appearance: Alert, Oriented X3, Cooperative, mild distress HEENT: Atraumatic, PERRLA Cardiovascular: Normal S1, Normal S2 Abdomen: Normal bowel sounds, Soft, No tenderness Musculoskeletal: Normal sensory function, Normal motor function Extremities: No clubbing, No cyanosis Skin: Dry, Intact Psych/Mental Status: Mental status NL, Mood NL Medications Current Medications Medications Dose Ordered Sig/Mario Route Start Time Stop Time Status Last Admin Dose Admin Cefepime HCl 50 ml @ 12.5 mls/hr Q12HR IV 02/06/25 22:00 02/19/25 08:32 12.5 MLS/HR Ondansetron HCl 4 mg Q4HP PRN IV 02/06/25 13:30 02/07/25 15:40 4 MG Acetaminophen 650 mg Q6HP PRN PO 02/06/25 13:30 02/17/25 09:08 650 MG Diagnostic Test (Pha) 1 strip Q6HR 02/07/25 18:00 02/19/25 05:42 1 STRIP Insulin Human Regular Q6HR SC 02/07/25 18:00 02/19/25 05:46 3 UNITS Dextrose 50 ml UD PRN IV 02/07/25 15:45 Medroxyprogesterone Acetate 10 mg DAILY PO 02/08/25 05:30 02/18/25 08:43 10 MG Hydromorphone HCl 0.5 mg Q4HPRN PRN IV 02/11/25 18:45 02/19/25 03:02 0.5 MG Morphine Sulfate 2 mg Q4HPRN PRN IV 02/11/25 19:00 02/18/25 17:14 2 MG Ferrous Sulfate 325 mg BIDWM PO 02/12/25 18:00 02/19/25 08:28 325 MG Insulin Glargine 40 units HS SC 02/14/25 22:00 02/18/25 22:25 40 UNITS Enoxaparin Sodium 140 mg Q12HR SC 02/14/25 22:00 02/19/25 08:30 140 MG Acetaminophen/ Hydrocodone Bitart 1 tab Q6HPRN PRN PO 02/16/25 04:15 02/19/25 08:29 1 TAB Warfarin Sodium RX PROTOCOL PER PHARMACY PO 02/17/25 12:30 Laboratory Results Laboratory Tests 02/11/25 11:39 02/16/25 04:34 02/18/25 04:28 Coagulation Test 02/19/25 04:26 Prothrombin Time 12.4 sec (9.3-11.8) H Prothrombin Time INR 1.19 (0.9-1.15) H Activated Partial Thromboplast Time 37.0 SEC (24.5-34.5) H Urinalysis Test 02/06/25 15:29 02/11/25 21:41 Urine Color Light-gallo (Yellow) Urine Clarity Ex.turbid (Clear) Urine pH 5.5 (5.0-9.0) Urine Specific [place] 1.026 (1.001-1.035) Urine Protein 1+ (Negative) H Urine Ketones Negative (Negative) Urine Blood 2+ /uL (Negative) H Urine Nitrite Negative (Negative) Urine Bilirubin Negative (Negative) Urine Urobilinogen Normal mg/dL (Negative) Urine Leukocyte Esterase 3+ /uL (Negative) Urine RBC 176 /hpf (0 - 4) Urine Microscopic WBC 376 /HPF (0-5) H Urine Squamous Epithelial Cells Mod /hpf (<5) Urine Bacteria Few /hpf (None Seen) H Urine Glucose 4+ mg/dL (Normal) H Urine Test Negative (Negative) Microbiology Microbiology Date/Time Source Procedure Growth Status 02/07/25 04:03 Nose MRSA Screen - Final Complete 02/06/25 12:51 Blood Blood Culture - Final NO GROWTH AFTER 5 DAYS OF INCUBATION. 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 Continue bridge therapy. Patient denies any vaginal bleeding. -continue iron supplementation -deescalate antibiotics to oral coverage -continue Provera -continue regular insulin sliding scale Lantus -antihypertensives -pain management -urology consultation: Recommendations reviewed -INR daily Total time spent with patient discussing and formulating plan of care: 35 minutes. This medical document was created using an electronic medical record system with [employer] dictation system. Although this document has been carefully reviewed, there may still be some phonetic and typographical errors. These areas are purely typographical due to imperfections of the software programs, and do not reflect any compromise in the patient's medical care. Plan discussed with: Patient, Other (RN) My Orders Orders - JAJA CHANEL NP Procedure Category Date Status Time Warfarin Sodium PHA 02/19/25 Logged (Coumadin) 17:00 Complete Blood Count LAB 02/20/25 Verified 04:00 PTPTT LAB 02/20/25 Verified 04:00 Coumadin Per Pharmacy [facility] 02/19/25 In Process Protcol 17:00 Cefpodoxime Proxetil PHA 02/19/25 Transmitted (Vant[facility]) 10:00 Date of Service: Feb 19, 2025 Billing Provider: JAJA CHANEL NP Common Visit Codes: [id number] INP/OBS CARE(HIGH) JAJA CHANEL NP Feb 19, 2025 09:59
[2025-02-19] MEDS: CEFPODOXIME PROXETIL 200 MG TAB PO SCH (12:31)
[2025-02-19] MEDS: WARFARIN SODIUM 2.5 MG TAB PO ONE (17:18)
--- NOTE | 2025-02-19 23:59 | DVHPN2 ---
Progress Note - Dictate Date Seen: Feb 19, 2025 Medical Necessity Reason Pt with a Central, PICC or Fol: No Subjective Patient was seen and evaluated in follow up. Patient remains with mild persistent suprapubic discomfort. GLUC 208. Telemetry reviewed. vital signs Vital Sign Date Time Temp Pulse Resp B/P (MAP) Pulse Ox O2 Delivery O2 Flow Rate FiO2 02/19/25 12:40 97.9 66 16 171/82 (111) 95 97.9 02/19/25 08:00 Room Air* 0 21 Total Intake and Output 02/18/25 02/18/25 02/19/25 15:00 23:00 07:00 Intake Total 50 ml 825 ml 900 ml Balance 50 ml 825 ml 900 ml medications Current Medications Medications Dose Ordered Sig/Mario Route Start Time Stop Time Status Last Admin Dose Admin Ondansetron HCl 4 mg Q4HP PRN IV 02/06/25 13:30 02/07/25 15:40 4 MG Acetaminophen 650 mg Q6HP PRN PO 02/06/25 13:30 02/17/25 09:08 650 MG Diagnostic Test (Pha) 1 strip Q6HR 02/07/25 18:00 02/19/25 12:31 1 STRIP Insulin Human Regular Q6HR SC 02/07/25 18:00 02/19/25 12:39 6 UNITS Dextrose 50 ml UD PRN IV 02/07/25 15:45 Medroxyprogesterone Acetate 10 mg DAILY PO 02/08/25 05:30 02/18/25 08:43 10 MG Hydromorphone HCl 0.5 mg Q4HPRN PRN IV 02/11/25 18:45 02/19/25 12:40 0.5 MG Morphine Sulfate 2 mg Q4HPRN PRN IV 02/11/25 19:00 02/18/25 17:14 2 MG Ferrous Sulfate 325 mg BIDWM PO 02/12/25 18:00 02/19/25 08:28 325 MG Insulin Glargine 40 units HS SC 02/14/25 22:00 02/18/25 22:25 40 UNITS Enoxaparin Sodium 140 mg Q12HR SC 02/14/25 22:00 02/19/25 08:30 140 MG Acetaminophen/ Hydrocodone Bitart 1 tab Q6HPRN PRN PO 02/16/25 04:15 11/5/25 08:29 1 TAB Warfarin Sodium RX PROTOCOL PER PHARMACY PO 02/17/25 12:30 Cefpodoxime Proxetil 200 mg BID PO 02/19/25 10:00 02/19/25 12:31 200 MG objective GENERAL: Alert and oriented x 3. No acute distress. Obese. EYES: PERRL, EOMI. Anicteric. HENT: Moist mucous membranes. LUNGS: Clear to auscultation bilaterally. CARDIOVASCULAR: Regular rate and rhythm. ABDOMEN: Soft, nontender and nondistended. EXTREMITIES: No edema. Right BKA. NEUROLOGIC: No focal neurological deficits. SKIN: Warm, dry. laboratory and microbiology Laboratory Tests 02/18/25 04:28 02/16/25 04:34 02/11/25 11:39 Test 02/11/25 11:39 Range/Units Serum Glucose 255 H 74-106 mg/dL Problem List Vaginal bleeding. History of uterine fibroids. Questionable uterine mass. Diabetes mellitus. Right BKA. 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 Morbid obesity. Primary hypertension. 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 Assessment/Plan Continued all current supportive medical care. DVT prophylactics. IV antibiotics as ordered. [place] and Dilaudid for pain management. Additional plan as per the hospital course. Dietary Evaluation Review Recommendations by RD: Dietary education by RD Comments: 1) Add cardiac restriction to 45g CCHO diet 2) Collect HbA1c 3) Refer to outpatient RD/CD[facility] for weight management 4) Follow-up with cardiology and gastroenterology 5) Continue to monitor I&O, labs, and skin integrity Expected Outcomes/Goals: 1) appetite and labs to improve 2) gradual wt loss 3) f/u in 3-5 days Plan discussed with: Patient CASSIE HILL MD Feb 19, 2025 12:53
[2025-02-20] VITALS (8 sets, daily range): BP systolic 132–163; BP diastolic 72–93; PULSE 52–73; RESP 16–20; TEMP 97.6–98; O2SAT 95–98
[2025-02-20 06:42] LABS: Hematocrit 26.0 % (36.0-46.0); Hemoglobin 8.5 g/dL (12.2-16.2); Mean Corpuscular Hemoglobin 32.3 pg (28.0-32.0); Mean Corpuscular Volume 99.2 fL (80.0-100.0); Nucleated Red Blood Cells % 1.3 %
[2025-02-20 06:50] LABS: INR 1.41 (0.9-1.15); Partial Thromboplastin Time 36.3 SEC (24.5-34.5); Prothrombin Time 14.4 sec (9.3-11.8)
--- NOTE | 2025-02-20 12:06 | DVHPN2 ---
Progress Note Date Seen: Feb 20, 2025 Medical Necessity Reason Pt with a Central, PICC or Fol: No Subjective Patient reports: No new complaints Changes from previous H/P or p: No Changes Objective vital signs Vital Sign Date Time Temp Pulse Resp B/P (MAP) Pulse Ox O2 Delivery O2 Flow Rate FiO2 02/20/25 09:00 98.0 57 18 141/72 (95) 97 98.0 02/20/25 08:05 Room Air* 0 21 Total Intake and Output 02/19/25 02/19/25 02/20/25 15:00 23:00 07:00 Intake Total 50 ml 1200 ml 1000 ml Output Total 500 ml 500 ml Balance -450 ml 700 ml 1000 ml medications Current Medications Medications Dose Ordered Sig/Mario Route Start Time Stop Time Status Last Admin Dose Admin Ondansetron HCl 4 mg Q4HP PRN IV 02/06/25 13:30 02/07/25 15:40 4 MG Acetaminophen 650 mg Q6HP PRN PO 02/06/25 13:30 02/17/25 09:08 650 MG Diagnostic Test (Pha) 1 strip Q6HR 02/07/25 18:00 02/20/25 11:52 1 STRIP Insulin Human Regular Q6HR SC 02/07/25 18:00 02/20/25 11:53 3 UNITS Dextrose 50 ml UD PRN IV 02/07/25 15:45 Medroxyprogesterone Acetate 10 mg DAILY PO 02/08/25 05:30 02/20/25 09:59 10 MG Hydromorphone HCl 0.5 mg Q4HPRN PRN IV 02/11/25 18:45 02/20/25 08:44 0.5 MG Morphine Sulfate 2 mg Q4HPRN PRN IV 02/11/25 19:00 02/18/25 17:14 2 MG Ferrous Sulfate 325 mg BIDWM PO 02/12/25 18:00 02/20/25 07:57 325 MG Insulin Glargine 40 units HS SC 02/14/25 22:00 02/19/25 21:37 40 UNITS Enoxaparin Sodium 140 mg Q12HR SC 02/14/25 22:00 02/20/25 09:59 140 MG Acetaminophen/ Hydrocodone Bitart 1 tab Q6HPRN PRN PO 02/16/25 04:15 02/20/25 11:31 1 TAB Warfarin Sodium RX PROTOCOL PER PHARMACY PO 02/17/25 12:30 Cefpodoxime Proxetil 200 mg BID PO 02/19/25 10:00 02/20/25 09:58 200 MG Examination Generally-44 years old woman, morbidly obese, lying in bed. No apparent distress HEENT-atraumatic, normocephalic Heart-regular rate and rhythm Lungs decreased breath sounds Abdomen soft nontender nondistended Musculoskeletal-no edema cyanosis neuro-AO three no focal deficits laboratory and microbiology Laboratory Tests 02/20/25 04:44 02/16/25 04:34 02/11/25 11:39 Test 02/11/25 11:39 Range/Units Serum Glucose 255 H 74-106 mg/dL Microbiology Date/Time Source Procedure Growth Status 02/07/25 04:03 Nose MRSA Screen - Final Complete 02/06/25 12:51 Blood Blood Culture - Final NO GROWTH AFTER 5 DAYS OF INCUBATION. 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 Continue bridge therapy. Patient denies any vaginal bleeding. -continue iron supplementation -deescalate antibiotics to oral coverage -continue Provera -continue regular insulin sliding scale Lantus -antihypertensives -pain management -urology consultation: Recommendations reviewed -INR daily Plan discussed with: Patient Dietary Evaluation Review Recommendations by RD: Dietary education by RD Comments: 1) Add cardiac restriction to 45g CCHO diet 2) Collect HbA1c 3) Refer to outpatient RD/[facility] for weight management 4) Follow-up with cardiology and gastroenterology 5) Continue to monitor I&O, labs, and skin integrity Expected Outcomes/Goals: 1) appetite and labs to improve 2) gradual wt loss 3) f/u in 3-5 days Date of Service: Feb 20, 2025 Billing Provider: CHAPIN SKY MD Common Visit Codes: [id number] SAME DATE (HIGH) CHAPIN SKY MD Feb 20, 2025 12:06
--- NOTE | 2025-02-20 13:12 | DVHPN2 ---
Progress Note - Dictate Date Seen: Feb 20, 2025 Medical Necessity Reason Pt with a Central, PICC or Fol: No Subjective Patient was seen and evaluated in follow up. Patient reports her suprapubic discomfort is improving. Patient endorses vaginal spotting. HGB 8.5, HCT 26. Telemetry reviewed. vital signs Vital Sign Date Time Temp Pulse Resp B/P (MAP) Pulse Ox O2 Delivery O2 Flow Rate FiO2 02/20/25 09:14 57 16 117/69 02/20/25 09:00 98.0 97 98.0 02/20/25 08:05 Room Air* 0 21 Total Intake and Output 02/19/25 02/19/25 02/20/25 15:00 23:00 07:00 Intake Total 50 ml 1200 ml 1000 ml Output Total 500 ml 500 ml Balance -450 ml 700 ml 1000 ml medications Current Medications Medications Dose Ordered Sig/Mario Route Start Time Stop Time Status Last Admin Dose Admin Ondansetron HCl 4 mg Q4HP PRN IV 02/06/25 13:30 02/07/25 15:40 4 MG Acetaminophen 650 mg Q6HP PRN PO 02/06/25 13:30 02/17/25 09:08 650 MG Diagnostic Test (Pha) 1 strip Q6HR 02/07/25 18:00 02/20/25 11:52 1 STRIP Insulin Human Regular Q6HR SC 02/07/25 18:00 02/20/25 11:53 3 UNITS Dextrose 50 ml UD PRN IV 02/07/25 15:45 Medroxyprogesterone Acetate 10 mg DAILY PO 02/08/25 05:30 02/20/25 09:59 10 MG Hydromorphone HCl 0.5 mg Q4HPRN PRN IV 02/11/25 18:45 02/20/25 08:44 0.5 MG Morphine Sulfate 2 mg Q4HPRN PRN IV 02/11/25 19:00 02/18/25 17:14 2 MG Ferrous Sulfate 325 mg BIDWM PO 02/12/25 18:00 02/20/25 07:57 325 MG Insulin Glargine 40 units HS SC 02/14/25 22:00 02/19/25 21:37 40 UNITS Enoxaparin Sodium 140 mg Q12HR SC 02/14/25 22:00 02/20/25 09:59 140 MG Acetaminophen/ Hydrocodone Bitart 1 tab Q6HPRN PRN PO 02/16/25 04:15 02/20/25 11:31 1 TAB Warfarin Sodium RX PROTOCOL PER PHARMACY PO 02/17/25 12:30 Cefpodoxime Proxetil 200 mg BID PO 02/19/25 10:00 02/20/25 09:58 200 MG objective GENERAL: Alert and oriented x 3. No acute distress. Obese. EYES: PERRL, EOMI. Anicteric. HENT: Moist mucous membranes. LUNGS: Clear to auscultation bilaterally. CARDIOVASCULAR: Regular rate and rhythm. ABDOMEN: Soft, nontender and nondistended. EXTREMITIES: No edema. Right BKA. NEUROLOGIC: No focal neurological deficits. SKIN: Warm, dry. laboratory and microbiology Laboratory Tests 02/20/25 04:44 02/16/25 04:34 02/11/25 11:39 Test 02/11/25 11:39 Range/Units Serum Glucose 255 H 74-106 mg/dL Problem List Vaginal bleeding. History of uterine fibroids. Questionable uterine mass. Diabetes mellitus. Right BKA. 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 Morbid obesity. Primary hypertension. 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 Assessment/Plan Continued all current supportive medical care. Dilaudid and [place] for pain management. DVT prophylactics. IV antibiotics as ordered. Warfarin per protocol. Additional plan as per the hospital course. Dietary Evaluation Review Recommendations by RD: Dietary education by RD Comments: 1) Add cardiac restriction to 45g CCHO diet 2) Collect HbA1c 3) Refer to outpatient RD/[facility] for weight management 4) Follow-up with cardiology and gastroenterology 5) Continue to monitor I&O, labs, and skin integrity Expected Outcomes/Goals: 1) appetite and labs to improve 2) gradual wt loss 3) f/u in 3-5 days Plan discussed with: Patient CASSIE HILL MD Feb 20, 2025 12:36
[2025-02-20] MEDS: WARFARIN SODIUM 5 MG TAB PO ONE (17:06)
[2025-02-21] VITALS (7 sets, daily range): BP systolic 142–164; BP diastolic 59–89; PULSE 52–85; RESP 18–20; TEMP 97–98.2; O2SAT 94–99
[2025-02-21] MEDS: HYDROcodone-ACET 5/325MG TAB PO ONE (00:45)
[2025-02-21 07:10] LABS: Hematocrit 28.2 % (36.0-46.0); Hemoglobin 8.9 g/dL (12.2-16.2); Mean Corpuscular Hemoglobin 31.7 pg (28.0-32.0); Mean Corpuscular Volume 99.8 fL (80.0-100.0); Nucleated Red Blood Cells % 0.6 %
[2025-02-21 07:23] LABS: INR 2.39 (0.9-1.15); Partial Thromboplastin Time 40.5 SEC (24.5-34.5); Prothrombin Time 23.2 sec (9.3-11.8)
--- NOTE | 2025-02-21 12:22 | DVHPN2 ---
Progress Note Date Seen: Feb 21, 2025 Medical Necessity Reason Pt with a Central, PICC or Fol: No Subjective Patient reports: No new complaints Changes from previous H/P or p: No Changes (Patient states she would feel more comfortable if she is discharged Monday INR level is therapeutic.) Objective vital signs Vital Sign Date Time Temp Pulse Resp B/P (MAP) Pulse Ox O2 Delivery O2 Flow Rate FiO2 02/21/25 10:09 59 18 136/89 02/21/25 09:32 97.0 98 97.0 02/21/25 08:06 Room Air* 0 21 Total Intake and Output 02/20/25 02/20/25 02/21/25 15:00 23:00 07:00 Intake Total 1780 ml 238 ml Balance 1780 ml 238 ml medications Current Medications Medications Dose Ordered Sig/Mario Route Start Time Stop Time Status Last Admin Dose Admin Ondansetron HCl 4 mg Q4HP PRN IV 02/06/25 13:30 02/07/25 15:40 4 MG Acetaminophen 650 mg Q6HP PRN PO 02/06/25 13:30 02/17/25 09:08 650 MG Diagnostic Test (Pha) 1 strip Q6HR 02/07/25 18:00 02/21/25 11:32 1 STRIP Insulin Human Regular Q6HR SC 02/07/25 18:00 02/21/25 11:33 3 UNITS Dextrose 50 ml UD PRN IV 02/07/25 15:45 Medroxyprogesterone Acetate 10 mg DAILY PO 02/08/25 05:30 02/21/25 09:38 10 MG Hydromorphone HCl 0.5 mg Q4HPRN PRN IV 02/11/25 18:45 02/21/25 09:39 0.5 MG Morphine Sulfate 2 mg Q4HPRN PRN IV 02/11/25 19:00 02/18/25 17:14 2 MG Ferrous Sulfate 325 mg BIDWM PO 02/12/25 18:00 02/21/25 08:06 325 MG Insulin Glargine 40 units HS SC 02/14/25 22:00 02/20/25 21:24 40 UNITS Enoxaparin Sodium 140 mg Q12HR SC 02/14/25 22:00 02/21/25 09:39 140 MG Acetaminophen/ Hydrocodone Bitart 1 tab Q6HPRN PRN PO 02/16/25 04:15 02/20/25 22:35 1 TAB Warfarin Sodium RX PROTOCOL PER PHARMACY PO 02/17/25 12:30 Cefpodoxime Proxetil 200 mg BID PO 02/19/25 10:00 02/21/25 09:38 200 MG Examination: GENERAL:Abnormal (Morbidly, lying in bed. No apparent distress), HEENT:Normal, NECK:Normal, LUNGS:Normal, CVS:Normal, ABDOMEN:Normal, MSK:Normal, SKIN:Normal, NEURO:Normal laboratory and microbiology Laboratory Tests 02/21/25 05:10 02/16/25 04:34 02/11/25 11:39 Test 02/11/25 11:39 Range/Units Serum Glucose 255 H 74-106 mg/dL Microbiology Date/Time Source Procedure Growth Status 02/07/25 04:03 Nose MRSA Screen - Final Complete 02/06/25 12:51 Blood Blood Culture - Final NO GROWTH AFTER 5 DAYS OF INCUBATION. 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 Continue bridge therapy. Patient denies any vaginal bleeding. -continue iron supplementation -deescalate antibiotics to oral coverage -continue Provera -continue regular insulin sliding scale Lantus -antihypertensives -pain management -urology consultation: Recommendations reviewed -INR daily Plan discussed with: Patient Dietary Evaluation Review Recommendations by RD: Dietary education by RD Comments: 1) Add cardiac restriction to 45g CCHO diet 2) Collect HbA1c 3) Refer to outpatient RD/[facility] for weight management 4) Follow-up with cardiology and gastroenterology 5) Continue to monitor I&O, labs, and skin integrity Expected Outcomes/Goals: 1) appetite and labs to improve 2) gradual wt loss 3) f/u in 3-5 days Date of Service: Feb 21, 2025 Billing Provider: CHAPIN SKY MD Common Visit Codes: [id number] SAME DATE (HIGH) CHAPIN SKY MD Feb 21, 2025 12:22
[2025-02-21] MEDS: WARFARIN SODIUM 5 MG TAB PO ONE (16:36)
[2025-02-21] MEDS: TORSEMIDE 20 MG TAB PO SCH (17:18)
[2025-02-21] MEDS: SPIRONOLACTONE 25 MG TAB PO SCH (17:18)
--- NOTE | 2025-02-21 17:33 | DVHPN2 ---
Progress Note - Dictate Date Seen: Feb 21, 2025 Medical Necessity Reason Pt with a Central, PICC or Fol: No Subjective Patient was seen and evaluated in follow up. Patient reports her suprapubic discomfort is improving. Patient states she would feel more comfortable if she is discharged next week. INR level is therapeutic. HGB 8.9, HCT 28.2. Telemetry reviewed. vital signs Vital Sign Date Time Temp Pulse Resp B/P (MAP) Pulse Ox O2 Delivery O2 Flow Rate FiO2 02/21/25 10:09 59 18 136/89 02/21/25 09:32 97.0 98 97.0 02/21/25 08:06 Room Air* 0 21 Total Intake and Output 02/20/25 02/20/25 02/21/25 15:00 23:00 07:00 Intake Total 1780 ml 238 ml Balance 1780 ml 238 ml medications Current Medications Medications Dose Ordered Sig/Mario Route Start Time Stop Time Status Last Admin Dose Admin Ondansetron HCl 4 mg Q4HP PRN IV 02/06/25 13:30 02/07/25 15:40 4 MG Acetaminophen 650 mg Q6HP PRN PO 02/06/25 13:30 02/17/25 09:08 650 MG Diagnostic Test (Pha) 1 strip Q6HR 02/07/25 18:00 02/21/25 11:32 1 STRIP Insulin Human Regular Q6HR SC 02/07/25 18:00 02/21/25 11:33 3 UNITS Dextrose 50 ml UD PRN IV 02/07/25 15:45 Medroxyprogesterone Acetate 10 mg DAILY PO 02/08/25 05:30 02/21/25 09:38 10 MG Hydromorphone HCl 0.5 mg Q4HPRN PRN IV 02/11/25 18:45 02/21/25 09:39 0.5 MG Morphine Sulfate 2 mg Q4HPRN PRN IV 02/11/25 19:00 02/18/25 17:14 2 MG Ferrous Sulfate 325 mg BIDWM PO 02/12/25 18:00 02/21/25 08:06 325 MG Insulin Glargine 40 units HS SC 02/14/25 22:00 02/20/25 21:24 40 UNITS Enoxaparin Sodium 140 mg Q12HR SC 02/14/25 22:00 02/21/25 09:39 140 MG Acetaminophen/ Hydrocodone Bitart 1 tab Q6HPRN PRN PO 02/16/25 04:15 02/20/25 22:35 1 TAB Warfarin Sodium RX PROTOCOL PER PHARMACY PO 02/17/25 12:30 Cefpodoxime Proxetil 200 mg BID PO 02/19/25 10:00 02/21/25 09:38 200 MG objective GENERAL: Alert and oriented x 3. No acute distress. Obese. EYES: PERRL, EOMI. Anicteric. HENT: Moist mucous membranes. LUNGS: Clear to auscultation bilaterally. CARDIOVASCULAR: Regular rate and rhythm. ABDOMEN: Soft, nontender and nondistended. EXTREMITIES: No edema. Right BKA. NEUROLOGIC: No focal neurological deficits. SKIN: Warm, dry. laboratory and microbiology Laboratory Tests 02/21/25 05:10 02/16/25 04:34 02/11/25 11:39 Test 02/11/25 11:39 Range/Units Serum Glucose 255 H 74-106 mg/dL Problem List Vaginal bleeding. History of uterine fibroids. Questionable uterine mass. Diabetes mellitus. Right BKA. 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 Morbid obesity. Primary hypertension. 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 Assessment/Plan Continued all current supportive medical care. DVT prophylactics. IV antibiotics as ordered. Warfarin per protocol. Dilaudid for pain management. Additional plan as per the hospital course. Dietary Evaluation Review Recommendations by RD: Dietary education by RD Comments: 1) Add cardiac restriction to 45g CCHO diet 2) Collect HbA1c 3) Refer to outpatient RD/[facility] for weight management 4) Follow-up with cardiology and gastroenterology 5) Continue to monitor I&O, labs, and skin integrity Expected Outcomes/Goals: 1) appetite and labs to improve 2) gradual wt loss 3) f/u in 3-5 days Plan discussed with: Patient CASSIE HILL MD Feb 21, 2025 12:32
[2025-02-22] VITALS (8 sets, daily range): BP systolic 113–167; BP diastolic 64–89; PULSE 53–99; RESP 18–20; TEMP 97.2–98.1; O2SAT 93–97
[2025-02-22 07:21] LABS: Hematocrit 27.7 % (36.0-46.0); Hemoglobin 8.8 g/dL (12.2-16.2); Mean Corpuscular Hemoglobin 31.3 pg (28.0-32.0); Mean Corpuscular Volume 98.1 fL (80.0-100.0); Nucleated Red Blood Cells % 0.4 %
[2025-02-22 07:35] LABS: INR 2.94 (0.9-1.15); Partial Thromboplastin Time 42.9 SEC (24.5-34.5); Prothrombin Time 28.0 sec (9.3-11.8)
[2025-02-22 07:36] LABS: Anion Gap 7 (5-15); Carbon Dioxide 27 mmol/L (20-31); Chloride 104 mmol/L (98-107); Potassium 3.7 mmol/L (3.5-5.1); Sodium 138 mmol/L (136-145)
[2025-02-22 07:38] LABS: Calcium 9.5 mg/dL (8.7-10.4)
[2025-02-22 07:43] LABS: BUN/Creatinine Ratio 14.8 (10.0-20.0); Blood Urea Nitrogen 12 mg/dL (9-23); Glucose 122 mg/dL (74-106)
--- NOTE | 2025-02-22 11:13 | DVHPN2 ---
Progress Note - Dictate Date Seen: Feb 22, 2025 Medical Necessity Reason Pt with a Central, PICC or Fol: No Subjective Patient was seen and evaluated in follow up. No overnight events. Patient is stable on room air. HGB 8.8, HCT 27.7. BS in the 130s. Patient denies any cardiac symptoms. Telemetry reviewed. vital signs Vital Sign Date Time Temp Pulse Resp B/P (MAP) Pulse Ox O2 Delivery O2 Flow Rate FiO2 02/22/25 09:44 60 16 140/64 02/22/25 09:00 97.9 93 97.9 02/22/25 08:00 Room Air* 0 21 Total Intake and Output 02/21/25 02/21/25 02/22/25 15:00 23:00 07:00 Intake Total 2150 ml 700 ml Balance 2150 ml 700 ml medications Current Medications Medications Dose Ordered Sig/Mario Route Start Time Stop Time Status Last Admin Dose Admin Ondansetron HCl 4 mg Q4HP PRN IV 02/06/25 13:30 02/07/25 15:40 4 MG Acetaminophen 650 mg Q6HP PRN PO 02/06/25 13:30 02/17/25 09:08 650 MG Diagnostic Test (Pha) 1 strip Q6HR 02/07/25 18:00 02/22/25 05:38 1 STRIP Insulin Human Regular Q6HR SC 02/07/25 18:00 02/22/25 05:38 2 UNITS Dextrose 50 ml UD PRN IV 02/07/25 15:45 Medroxyprogesterone Acetate 10 mg DAILY PO 02/08/25 05:30 02/22/25 09:32 10 MG Hydromorphone HCl 0.5 mg Q4HPRN PRN IV 02/11/25 18:45 02/22/25 09:44 0.5 MG Morphine Sulfate 2 mg Q4HPRN PRN IV 02/11/25 19:00 02/18/25 17:14 2 MG Ferrous Sulfate 325 mg BIDWM PO 02/12/25 18:00 02/22/25 08:51 325 MG Insulin Glargine 40 units HS SC 02/14/25 22:00 02/21/25 21:10 40 UNITS Enoxaparin Sodium 140 mg Q12HR SC 02/14/25 22:00 02/22/25 09:32 140 MG Acetaminophen/ Hydrocodone Bitart 1 tab Q6HPRN PRN PO 02/16/25 04:15 02/21/25 22:29 1 TAB Warfarin Sodium RX PROTOCOL PER PHARMACY PO 02/17/25 12:30 Cefpodoxime Proxetil 200 mg BID PO 02/19/25 10:00 02/22/25 09:32 200 MG Spironolactone 50 mg DAILY PO 02/21/25 16:45 02/22/25 09:32 50 MG Torsemide 20 mg DAILY PO 02/21/25 16:45 02/22/25 09:32 20 MG objective GENERAL: Alert and oriented x 3. No acute distress. Obese. EYES: PERRL, EOMI. Anicteric. HENT: Moist mucous membranes. LUNGS: Clear to auscultation bilaterally. CARDIOVASCULAR: Regular rate and rhythm. ABDOMEN: Soft, nontender and nondistended. EXTREMITIES: No edema. Right BKA. NEUROLOGIC: No focal neurological deficits. SKIN: Warm, dry. laboratory and microbiology Laboratory Tests 02/22/25 05:17 Test 02/22/25 05:17 Range/Units Serum Glucose 122 H 74-106 mg/dL Problem List Vaginal bleeding. History of uterine fibroids. Questionable uterine mass. Diabetes mellitus. Right BKA. 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 Morbid obesity. Primary hypertension. 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 Assessment/Plan Continued all current supportive medical care. Dilaudid and [place] for pain management. DVT prophylactics. IV antibiotics as ordered. Warfarin per protocol. Additional plan as per the hospital course. Dietary Evaluation Review Recommendations by RD: Dietary education by RD Comments: 1) Add cardiac restriction to 45g CCHO diet 2) Collect HbA1c 3) Refer to outpatient RD/CDCES for weight management 4) Follow-up with cardiology and gastroenterology 5) Continue to monitor I&O, labs, and skin integrity Expected Outcomes/Goals: 1) appetite and labs to improve 2) gradual wt loss 3) f/u in 3-5 days Plan discussed with: Patient CASSIE HILL MD Feb 22, 2025 11:13
--- NOTE | 2025-02-22 11:44 | DVHPN2 ---
Reviewed: Care Plan, H&P, Medications Changes from previous H/P or p: No Changes General: Per HPI Objective Vitals Vital Signs Date Time Temp Pulse Resp B/P (MAP) Pulse Ox O2 Delivery O2 Flow Rate FiO2 02/22/25 10:14 75 20 145/74 02/22/25 09:00 97.9 93 97.9 02/22/25 08:00 Room Air* 0 21 Intake/Output Intake and Output 02/22/25 07:00 Intake Total 2850 ml Balance 2850 ml Intake Oral 2850 ml # Voids 8 # Bowel Movements 1 General Appearance: Alert, Oriented X3, Cooperative, mild distress HEENT: Atraumatic, PERRLA Cardiovascular: Normal S1, Normal S2 Abdomen: Normal bowel sounds, Soft, No tenderness Musculoskeletal: Normal sensory function, Normal motor function Extremities: No clubbing, No cyanosis Skin: Dry, Intact Psych/Mental Status: Mental status NL, Mood NL Medications Current Medications Medications Dose Ordered Sig/Mario Route Start Time Stop Time Status Last Admin Dose Admin Ondansetron HCl 4 mg Q4HP PRN IV 02/06/25 13:30 02/07/25 15:40 4 MG Acetaminophen 650 mg Q6HP PRN PO 02/06/25 13:30 02/17/25 09:08 650 MG Diagnostic Test (Pha) 1 strip Q6HR 02/07/25 18:00 02/22/25 05:38 1 STRIP Insulin Human Regular Q6HR SC 02/07/25 18:00 02/22/25 05:38 2 UNITS Dextrose 50 ml UD PRN IV 02/07/25 15:45 Medroxyprogesterone Acetate 10 mg DAILY PO 02/08/25 05:30 02/22/25 09:32 10 MG Hydromorphone HCl 0.5 mg Q4HPRN PRN IV 02/11/25 18:45 02/22/25 09:44 0.5 MG Morphine Sulfate 2 mg Q4HPRN PRN IV 02/11/25 19:00 02/18/25 17:14 2 MG Ferrous Sulfate 325 mg BIDWM PO 02/12/25 18:00 02/22/25 08:51 325 MG Insulin Glargine 40 units HS SC 02/14/25 22:00 02/21/25 21:10 40 UNITS Enoxaparin Sodium 140 mg Q12HR SC 02/14/25 22:00 02/22/25 09:32 140 MG Acetaminophen/ Hydrocodone Bitart 1 tab Q6HPRN PRN PO 02/16/25 04:15 02/21/25 22:29 1 TAB Warfarin Sodium RX PROTOCOL PER PHARMACY PO 02/17/25 12:30 Cefpodoxime Proxetil 200 mg BID PO 02/19/25 10:00 02/22/25 09:32 200 MG Spironolactone 50 mg DAILY PO 02/21/25 16:45 02/22/25 09:32 50 MG Torsemide 20 mg DAILY PO 02/21/25 16:45 02/22/25 09:32 20 MG Laboratory Results Laboratory Tests 02/22/25 05:17 Chemistry Test 02/22/25 05:17 Calcium Level 9.5 mg/dL (8.7-10.4) Coagulation Test 02/22/25 05:17 Prothrombin Time 28.0 sec (9.3-11.8) H Prothrombin Time INR 2.94 (0.9-1.15) H Activated Partial Thromboplast Time 42.9 SEC (24.5-34.5) H Urinalysis Test 02/06/25 15:29 02/11/25 21:41 Urine Color Light-gallo (Yellow) Urine Clarity Ex.turbid (Clear) Urine pH 5.5 (5.0-9.0) Urine Specific [place] 1.026 (1.001-1.035) Urine Protein 1+ (Negative) H Urine Ketones Negative (Negative) Urine Blood 2+ /uL (Negative) H Urine Nitrite Negative (Negative) Urine Bilirubin Negative (Negative) Urine Urobilinogen Normal mg/dL (Negative) Urine Leukocyte Esterase 3+ /uL (Negative) Urine RBC 176 /hpf (0 - 4) Urine Microscopic WBC 376 /HPF (0-5) H Urine Squamous Epithelial Cells Mod /hpf (<5) Urine Bacteria Few /hpf (None Seen) H Urine Glucose 4+ mg/dL (Normal) H Urine Test Negative (Negative) Microbiology Microbiology Date/Time Source Procedure Growth Status 02/07/25 04:03 Nose MRSA Screen - Final Complete 02/06/25 12:51 Blood Blood Culture - Final NO GROWTH AFTER 5 DAYS OF INCUBATION. Complete 02/06/25 09:28 Voided Urine Urine Culture - Final Complete Labs and/or images reviewed: Labs reviewed by me, Image(s) reviewed by me Assessment/Plan Assessment/Plan Covering For nurse practitioner Elbert Marroquin -vaginal bleeding hemoglobin 8 point -history of uterine fibroids -questionable uterine mass -diabetes mellitus -right BKA -history of prosthetic valve replacement secondary to endocarditis -morbid obesity -primary hypertension -pernicious drop in hematocrit -ureter stricture LILLY Grigsby at bedside INR still high at 2.9, patient afraid of going home today Plan discussed with: Patient Date of Service: Feb 22, 2025 Billing Provider: LELAND PLUNKETT MD Common Visit Codes: [id number] INP/OBS CARE(HIGH) LELAND PLUNKETT MD Feb 22, 2025 11:44
[2025-02-22] MEDS: WARFARIN SODIUM 5 MG TAB PO ONE (17:37)
[2025-02-23] VITALS (8 sets, daily range): BP systolic 122–157; BP diastolic 50–94; PULSE 50–77; RESP 17–20; TEMP 98–98.9; O2SAT 92–98
[2025-02-23 07:23] LABS: Hematocrit 28.7 % (36.0-46.0); Hemoglobin 9.2 g/dL (12.2-16.2); INR 2.29 (0.9-1.15); Mean Corpuscular Hemoglobin 31.3 pg (28.0-32.0); Mean Corpuscular Volume 97.9 fL (80.0-100.0); Nucleated Red Blood Cells % 0.3 %; Partial Thromboplastin Time 47.6 SEC (24.5-34.5); Prothrombin Time 22.4 sec (9.3-11.8)
[2025-02-23 08:12] LABS: Carbon Dioxide 25 mmol/L (20-31)
[2025-02-23 08:13] LABS: Calcium 9.2 mg/dL (8.7-10.4)
[2025-02-23 08:18] LABS: BUN/Creatinine Ratio 11.6 (10.0-20.0); Blood Urea Nitrogen 11 mg/dL (9-23)
[2025-02-23 08:21] LABS: Glucose 194 mg/dL (74-106)
[2025-02-23 08:49] LABS: Anion Gap 9 (5-15); Chloride 103 mmol/L (98-107); Potassium 3.9 mmol/L (3.5-5.1); Sodium 137 mmol/L (136-145)
--- NOTE | 2025-02-23 10:40 | DVHPN2 ---
Reviewed: Care Plan, H&P, Medications Changes from previous H/P or p: No Changes General: Per HPI Objective Vitals Vital Signs Date Time Temp Pulse Resp B/P (MAP) Pulse Ox O2 Delivery O2 Flow Rate FiO2 02/23/25 09:38 157/84 02/23/25 09:00 98.2 51 20 96 98.2 02/22/25 20:00 Room Air* 0 21 Intake/Output Intake and Output 02/23/25 07:00 Intake Total 2036 ml Output Total 2650 ml Balance -614 ml Intake Oral 2036 ml Output Urine Total 1350 ml Urine/Stool Mix 1300 ml # Voids 4 # Bowel Movements 2 General Appearance: Alert, Oriented X3, Cooperative, mild distress HEENT: Atraumatic, PERRLA Cardiovascular: Normal S1, Normal S2 Abdomen: Normal bowel sounds, Soft, No tenderness Musculoskeletal: Normal sensory function, Normal motor function Extremities: No clubbing, No cyanosis Skin: Dry, Intact Psych/Mental Status: Mental status NL, Mood NL Medications Current Medications Medications Dose Ordered Sig/Mario Route Start Time Stop Time Status Last Admin Dose Admin Ondansetron HCl 4 mg Q4HP PRN IV 02/06/25 13:30 02/07/25 15:40 4 MG Acetaminophen 650 mg Q6HP PRN PO 02/06/25 13:30 02/17/25 09:08 650 MG Diagnostic Test (Pha) 1 strip Q6HR 02/07/25 18:00 02/23/25 06:15 1 STRIP Insulin Human Regular Q6HR SC 02/07/25 18:00 02/23/25 06:16 6 UNITS Dextrose 50 ml UD PRN IV 02/07/25 15:45 Medroxyprogesterone Acetate 10 mg DAILY PO 02/08/25 05:30 02/23/25 09:39 10 MG Hydromorphone HCl 0.5 mg Q4HPRN PRN IV 02/11/25 18:45 02/23/25 02:39 0.5 MG Morphine Sulfate 2 mg Q4HPRN PRN IV 02/11/25 19:00 02/18/25 17:14 2 MG Ferrous Sulfate 325 mg BIDWM PO 02/12/25 18:00 02/23/25 09:38 325 MG Insulin Glargine 40 units HS SC 02/14/25 22:00 02/22/25 21:45 40 UNITS Enoxaparin Sodium 140 mg Q12HR SC 02/14/25 22:00 02/23/25 09:39 140 MG Acetaminophen/ Hydrocodone Bitart 1 tab Q6HPRN PRN PO 02/16/25 04:15 02/23/25 06:38 1 TAB Warfarin Sodium RX PROTOCOL PER PHARMACY PO 02/17/25 12:30 Cefpodoxime Proxetil 200 mg BID PO 02/19/25 10:00 02/23/25 09:39 200 MG Spironolactone 50 mg DAILY PO 02/21/25 16:45 02/23/25 09:38 50 MG Torsemide 20 mg DAILY PO 02/21/25 16:45 02/23/25 09:38 20 MG Laboratory Results Laboratory Tests 02/23/25 06:04 Chemistry Test 02/23/25 06:04 Calcium Level 9.2 mg/dL (8.7-10.4) Coagulation Test 02/23/25 06:04 Prothrombin Time 22.4 sec (9.3-11.8) H Prothrombin Time INR 2.29 (0.9-1.15) H Activated Partial Thromboplast Time 47.6 SEC (24.5-34.5) H Urinalysis Test 02/06/25 15:29 02/11/25 21:41 Urine Color Light-gallo (Yellow) Urine Clarity Ex.turbid (Clear) Urine pH 5.5 (5.0-9.0) Urine Specific [place] 1.026 (1.001-1.035) Urine Protein 1+ (Negative) H Urine Ketones Negative (Negative) Urine Blood 2+ /uL (Negative) H Urine Nitrite Negative (Negative) Urine Bilirubin Negative (Negative) Urine Urobilinogen Normal mg/dL (Negative) Urine Leukocyte Esterase 3+ /uL (Negative) Urine RBC 176 /hpf (0 - 4) Urine Microscopic WBC 376 /HPF (0-5) H Urine Squamous Epithelial Cells Mod /hpf (<5) Urine Bacteria Few /hpf (None Seen) H Urine Glucose 4+ mg/dL (Normal) H Urine Test Negative (Negative) Microbiology Microbiology Date/Time Source Procedure Growth Status 02/07/25 04:03 Nose MRSA Screen - Final Complete 02/06/25 12:51 Blood Blood Culture - Final NO GROWTH AFTER 5 DAYS OF INCUBATION. Complete 02/06/25 09:28 Voided Urine Urine Culture - Final Complete Labs and/or images reviewed: Labs reviewed by me, Image(s) reviewed by me Assessment/Plan Assessment/Plan Covering For nurse practitioner Elbert Marroquin -vaginal bleeding -history of uterine fibroids -questionable uterine mass -diabetes mellitus -right BKA -history of prosthetic valve replacement secondary to endocarditis -morbid obesity -primary hypertension -pernicious drop in hematocrit -ureter stricture LILLY Grigsby at bedside INR still high at 2.9, patient afraid of going home today, patient says her INR should be between 1.7 and 2.2 per her resident advisor LILLY Arthur at bedside Plan discussed with: Patient Date of Service: Feb 23, 2025 Billing Provider: LELAND PLUNKETT MD Common Visit Codes: [id number] INP/OBS CARE(HIGH) LELAND PLUNKETT MD Feb 23, 2025 10:40
--- NOTE | 2025-02-23 11:14 | DVHPN2 ---
Progress Note - Dictate Date Seen: Feb 23, 2025 Medical Necessity Reason Pt with a Central, PICC or Fol: No Subjective Patient was seen and evaluated in follow up. Patient is resting in bed. She denies any complaints. INR still high at 2.9, patient afraid of going home today. Patient says her INR should be between 1.7 and 2.2. Telemetry reviewed. vital signs Vital Sign Date Time Temp Pulse Resp B/P (MAP) Pulse Ox O2 Delivery O2 Flow Rate FiO2 02/23/25 09:38 157/84 02/23/25 09:00 98.2 51 20 96 98.2 02/22/25 20:00 Room Air* 0 21 Total Intake and Output 02/22/25 02/22/25 02/23/25 15:00 23:00 07:00 Intake Total 1436 ml 600 ml Output Total 2650 ml Balance -1214 ml 600 ml medications Current Medications Medications Dose Ordered Sig/Mario Route Start Time Stop Time Status Last Admin Dose Admin Ondansetron HCl 4 mg Q4HP PRN IV 02/06/25 13:30 02/07/25 15:40 4 MG Acetaminophen 650 mg Q6HP PRN PO 02/06/25 13:30 02/17/25 09:08 650 MG Diagnostic Test (Pha) 1 strip Q6HR 02/07/25 18:00 02/23/25 06:15 1 STRIP Insulin Human Regular Q6HR SC 02/07/25 18:00 02/23/25 06:16 6 UNITS Dextrose 50 ml UD PRN IV 02/07/25 15:45 Medroxyprogesterone Acetate 10 mg DAILY PO 02/08/25 05:30 02/23/25 09:39 10 MG Hydromorphone HCl 0.5 mg Q4HPRN PRN IV 02/11/25 18:45 02/23/25 02:39 0.5 MG Morphine Sulfate 2 mg Q4HPRN PRN IV 02/11/25 19:00 02/18/25 17:14 2 MG Ferrous Sulfate 325 mg BIDWM PO 02/12/25 18:00 02/23/25 09:38 325 MG Insulin Glargine 40 units HS SC 02/14/25 22:00 02/22/25 21:45 40 UNITS Enoxaparin Sodium 140 mg Q12HR SC 02/14/25 22:00 02/23/25 09:39 140 MG Acetaminophen/ Hydrocodone Bitart 1 tab Q6HPRN PRN PO 02/16/25 04:15 02/23/25 06:38 1 TAB Warfarin Sodium RX PROTOCOL PER PHARMACY PO 02/17/25 12:30 Cefpodoxime Proxetil 200 mg BID PO 02/19/25 10:00 02/23/25 09:39 200 MG Spironolactone 50 mg DAILY PO 02/21/25 16:45 02/23/25 09:38 50 MG Torsemide 20 mg DAILY PO 02/21/25 16:45 02/23/25 09:38 20 MG objective GENERAL: Alert and oriented x 3. No acute distress. Obese. EYES: PERRL, EOMI. Anicteric. HENT: Moist mucous membranes. LUNGS: Clear to auscultation bilaterally. CARDIOVASCULAR: Regular rate and rhythm. ABDOMEN: Soft, nontender and nondistended. EXTREMITIES: No edema. Right BKA. NEUROLOGIC: No focal neurological deficits. SKIN: Warm, dry. laboratory and microbiology Laboratory Tests 02/23/25 06:04 Test 02/23/25 06:04 Range/Units Serum Glucose 194 H 74-106 mg/dL Problem List Vaginal bleeding. History of uterine fibroids. Questionable uterine mass. Diabetes mellitus. Right BKA. 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 Morbid obesity. Primary hypertension. 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 Assessment/Plan Continued all current supportive medical care. Dilaudid and [place] for pain management. DVT prophylactics. IV antibiotics as ordered. Warfarin per protocol. Additional plan as per the hospital course. Dietary Evaluation Review Recommendations by RD: Dietary education by RD Comments: 1) Add cardiac restriction to 45g CCHO diet 2) Collect HbA1c 3) Refer to outpatient RD/[facility] for weight management 4) Follow-up with cardiology and gastroenterology 5) Continue to monitor I&O, labs, and skin integrity Expected Outcomes/Goals: 1) appetite and labs to improve 2) gradual wt loss 3) f/u in 3-5 days Plan discussed with: Patient CASSIE HILL MD Feb 23, 2025 11:14
[2025-02-23] MEDS: WARFARIN SODIUM 5 MG TAB PO ONE (17:00)
[2025-02-24 01:00] VITALS: BP 140/97; PULSE 56; RESP 17; TEMP 98.2; O2SAT 96
[2025-02-24 05:00] VITALS: BP 175/73; PULSE 57; RESP 18; TEMP 99; O2SAT 98
[2025-02-24 05:20] VITALS: BP 145/73
[2025-02-24 06:58] LABS: Hematocrit 27.8 % (36.0-46.0); Hemoglobin 9.1 g/dL (12.2-16.2); Mean Corpuscular Hemoglobin 31.5 pg (28.0-32.0); Mean Corpuscular Volume 96.1 fL (80.0-100.0); Nucleated Red Blood Cells % 0.4 %
[2025-02-24 07:14] LABS: Anion Gap 7 (5-15); Carbon Dioxide 27 mmol/L (20-31); Chloride 104 mmol/L (98-107); INR 1.65 (0.9-1.15); Partial Thromboplastin Time 40.3 SEC (24.5-34.5); Potassium 4.1 mmol/L (3.5-5.1); Prothrombin Time 16.6 sec (9.3-11.8); Sodium 138 mmol/L (136-145)
[2025-02-24 07:16] LABS: Calcium 9.2 mg/dL (8.7-10.4)
[2025-02-24 07:20] LABS: BUN/Creatinine Ratio 16.5 (10.0-20.0); Blood Urea Nitrogen 14 mg/dL (9-23)
[2025-02-24 07:26] LABS: Glucose 184 mg/dL (74-106)
[2025-02-24 08:00] VITALS: PULSE 51
[2025-02-24 08:52] VITALS: BP 126/67; PULSE 50; RESP 20; TEMP 98.5; O2SAT 95
[2025-02-24 12:09] VITALS: BP 126/67; PULSE 50; RESP 20
--- NOTE | 2025-02-24 13:05 | DVHDS2 ---
Discharge Summary Date of Admission Feb 06, 2025 at 13:17 Date of Discharge: Feb 24, 2025 Admitting Diagnosis Sepsis Labs/Diagnostic Data: Laboratory Results Test 02/24/25 06:14 02/24/25 05:46 02/18/25 04:28 02/16/25 13:02 POC Glucose 200 mg/dl (70-106) White Blood Count 5.7 10^3/uL (4.4-10.8) Red Blood Count 2.90 10^6/uL (4.0-5.20) Hemoglobin 9.1 g/dL (12.2-16.2) Hematocrit 27.8 % (36.0-46.0) Mean Corpuscular Volume 96.1 fL (80.0-100.0) Mean Corpuscular Hemoglobin 31.5 pg (28.0-32.0) Mean Corpuscular Hemoglobin Concent 32.7 g/dL (32.0-36.0) Red Cell Distribution Width 14.9 % (11.8-14.3) Platelet Count 225 10^3/uL (140-450) Mean Platelet Volume 9.8 fL (6.9-10.8) Neutrophils (%) (Auto) 60.3 % (37.0-80.0) Lymphocytes (%) (Auto) 29.9 % (10.0-50.0) Monocytes (%) (Auto) 7.8 % (0.0-12.0) Eosinophils (%) (Auto) 1.1 % (0.0-7.0) Basophils (%) (Auto) 0.9 % (0.0-2.0) Neutrophils # (Auto) 3.5 10 ^3/uL (1.6-8.6) Lymphocytes # (Auto) 1.7 10 ^3/uL (0.4-5.4) Monocytes # (Auto) 0.4 10 ^3/uL (0-1.3) Eosinophils # (Auto) 0.1 10 ^3/uL (0-0.8) Basophils # (Auto) 0.1 10 ^3/uL (0-0.2) Nucleated Red Blood Cells 0.4 % Prothrombin Time 16.6 sec (9.3-11.8) Prothrombin Time INR 1.65 (0.9-1.15) Activated Partial Thromboplast Time 40.3 SEC (24.5-34.5) Sodium Level 138 mmol/L (136-145) Potassium Level 4.1 mmol/L (3.5-5.1) Chloride Level 104 mmol/L (98-107) Carbon Dioxide Level 27 mmol/L (20-31) Anion Gap 7 (5-15) Blood Urea Nitrogen 14 mg/dL (9-23) Creatinine 0.85 mg/dL (0.550-1.02) Glomerular Filtration Rate Calc 86 mL/min (>90) BUN/Creatinine Ratio 16.5 (10.0-20.0) Serum Glucose 184 mg/dL (74-106) Calcium Level 9.2 mg/dL (8.7-10.4) Differential Total Cells Counted 100.0 (100) Neutrophils % (Manual) 72 (37.0-80.0) Band Neutrophils % (Manual) 1 Lymphocytes % (Manual) 19 (10.0-50.0) Monocytes % (Manual) 4 (0-12) Eosinophils % (Manual) 2 (0-7) Basophils % (Manual) 0 (0.0-2.0) Metamyelocytes % (manual) 1 Myelocytes % (Manual) 1 Promyelocytes % (Manual) 0 Blast Cells % (Manual) 0 Reactive Lymphocytes 0 Platelet Estimate Adequate Vancomycin Level Trough 10.4 ug/mL (5-10) Test 02/11/25 21:41 02/11/25 15:13 02/11/25 11:39 02/09/25 04:56 Urine Test Negative (Negative) CA 125 Antigen 32.2 U/mL (0.0-38.1) Hemoglobin A1c 8.6 % A1C (<5.7) Total Bilirubin 0.2 mg/dL (0.2-1.0) Aspartate Amino Transferase (AST) 11 U/L (13-40) Alanine Aminotransferase (ALT) 14 U/L (7-40) Alkaline Phosphatase 115 U/L (46-116) Total Protein 5.7 g/dL (5.7-8.2) Albumin 3.2 g/dL (3.2-4.8) Random Vancomycin Level 11.8 ug/mL (5-10) Test 02/06/25 17:37 02/06/25 15:29 02/06/25 12:34 02/06/25 09:59 Troponin I High Sensitivity 16 ng/L (</=34) Urine Color Light-gallo (Yellow) Urine Clarity Ex.turbid (Clear) Urine pH 5.5 (5.0-9.0) Urine Specific [place] 1.026 (1.001-1.035) Urine Protein 1+ (Negative) Urine Ketones Negative (Negative) Urine Blood 2+ /uL (Negative) Urine Nitrite Negative (Negative) Urine Bilirubin Negative (Negative) Urine Urobilinogen Normal mg/dL (Negative) Urine Leukocyte Esterase 3+ /uL (Negative) Urine RBC 176 /hpf (0 - 4) Urine Microscopic WBC 376 /HPF (0-5) Urine Squamous Epithelial Cells Mod /hpf (<5) Urine Bacteria Few /hpf (None Seen) Urine Glucose 4+ mg/dL (Normal) Lactic Acid Level 1.7 mmol/L (0.4-2.0) B-Type Natriuretic Peptide 291.64 pg/mL (0-100) Other Laboratory Tests 02/24/25 05:46 Brief Hx & Hospital Course: History of Present Illness 44-year-old female presents for evaluation of abdominal pain. Patient reports a one day history of lower abdominal pain with associated dysuria, chills and difficulty urinating. Also reports mild dizziness. No chest pain or palpitations. Course of hospitalization: Patient was started on empiric antibiotic therapy. Be cultures were performed. Patient had no growth noted, with white blood cell count improving. Patient did have persistent uterine bleeding, despite being off of her Coumadin, for which she is on four and mechanical heart valve. OBGYN consultation was obtained, with initiation of Premarin. Patient continued to have vaginal bleeding requiring PRBC transfusion. Given her history of uterine fibroids and presentation on CT scan of the abdomen and pelvis, IR consultation was obtained for possible uterine arterial embolization. CT scan also revealed uterine stricture, for which urology consultation was obtained. Recommendations were made for nephrostomy tube placement. Interventional radiologist feels the this chronic issue can be assessed and intervened as an outpatient. Patient's bleeding improved without any intervention. Patient was started on bridge therapy. Patient's Coumadin level now acceptable. Patient will be discharged home and continue her current Coumadin regimen. She is instructed to follow up with the Coumadin Clinic scheduled tomorrow. She completed adequate antibiotic course while in the hospital. She is instructed to follow up with her PCP as well as outpatient OBGYN for further treatment of her uterine fibroids. Physical examination General: Alert and Oriented x3. No acute distress. Well-nourished. Obese Eyes: EOMI. Anicteric. HENT: Moist mucous membranes. Lungs: Clear to auscultation bilaterally. No accessory muscle use. Cardiovascular: Regular rate and rhythm. No murmur. No JVD. Abdomen: Soft, non-tender and non-distended. No palpable masses. Extremities: No edema. Non-tender. Right BKA Skin: No rashes or lesions. Warm. Neurologic: No focal neurological deficits. CN II-XII grossly intact, but not individually tested. Psychiatric: Cooperative. Appropriate mood and affect. Total time spent with patient discussing and formulating plan of care: 35 minutes. This medical document was created using an electronic medical record system with [employer] dictation system. Although this document has been carefully reviewed, there may still be some phonetic and typographical errors. These areas are purely typographical due to imperfections of the software programs, and do not reflect any compromise in the patient's medical care. 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 -ureter stricture Discharge Disposition: Home Discharge Instruct/Medications Diet: Consistent carbohydrate, Cardiac 2g Na,low cholest Activity: No Restrictions, As Tolerated Follow Up/Referral: Follow up with PCP in 1-2 weeks Follow up with OBGYN at next available appointment Follow up with Coumadin clinic with scheduled appointment tomorrow Medications: Continue all previous home medications Scheduled Albuterol Sulfate (Albuterol Sulfate), 2 MG PO Q6HP, (Reported) Atorvastatin Calcium (Lipitor), 1 TAB PO QPM, (Reported) Fluoxetine Hcl (Fluoxetine Hcl), 40 MG PO DAILY, (Reported) Gabapentin (Gabapentin), 300 MG PO BID, (Reported) Metoprolol Succinate (Metoprolol Succinate Er), 1 TAB PO DAILY, (Reported) Spironolactone (Spironolactone), 1 TAB PO DAILY, (Reported) Miscellaneous Medications Acetaminophen (Tylenol), 650 MG WA, (Reported) Folic Acid (Folic Acid), 1 MG PO, (Reported) Insulin Glargine (Basaglar Kwikpen), 100 UNIT SC, (Reported) Sacubitril-Valsartan (Entresto 24-26 mg), 1 TAB PO, (Reported) Tirzepatide (Zepbound), 7.5 MG SC, (Reported) Torsemide (Torsemide), 20 MG PO, (Reported) Warfarin Sodium (Warfarin Sodium), 3 MG PO, (Reported) 36 Discharge Statement: "Patient was advised to return to the ER or call 911 if any headaches, dizziness, shortness of breath, chest pain, abdominal pain, bleeding, fevers, or worsening of medical condition. Patient was counseled about treatment plan, medications, possible side effects, patientverbalized understanding. All questions were answered to the best of my ability. This discharge took greater then 30 minutes in planning, reviewing documentation, counseling the patient, and discussing with other team members." ASSESSMENT ASSESSMENT Assessment Sepsis Date of Service: Feb 24, 2025 Billing Provider: JAJA CHANEL NP Common Visit Codes: [id number] DISCH DAY >30min JAJA CHANEL NP Feb 24, 2025 13:05
[2025-02-24] MEDS ORDERED: WARFARIN SODIUM 5 MG TAB PO ONE (17:00)
--- NOTE | 2025-02-25 00:03 | DVHPN2 ---
Progress Note - Dictate Date Seen: Feb 24, 2025 Medical Necessity Reason Pt with a Central, PICC or Fol: No Subjective Patient was seen and evaluated in follow up. Patient has no new complaints at this time. Patient denies any cardiac symptoms. Patient is cardiac stable for discharge. Telemetry reviewed. vital signs Vital Sign Date Time Temp Pulse Resp B/P (MAP) Pulse Ox O2 Delivery O2 Flow Rate FiO2 02/24/25 12:09 50 20 126/67 02/24/25 08:52 98.5 95 98.5 02/24/25 08:00 Room Air* 0 21 Total Intake and Output 02/24/25 02/24/25 02/25/25 15:00 23:00 07:00 Intake Total 1740 ml Balance 1740 ml objective GENERAL: Alert and oriented x 3. No acute distress. Obese. EYES: PERRL, EOMI. Anicteric. HENT: Moist mucous membranes. LUNGS: Clear to auscultation bilaterally. CARDIOVASCULAR: Regular rate and rhythm. ABDOMEN: Soft, nontender and nondistended. EXTREMITIES: No edema. Right BKA. NEUROLOGIC: No focal neurological deficits. SKIN: Warm, dry. laboratory and microbiology Laboratory Tests 02/24/25 05:46 Test 02/24/25 05:46 Range/Units Serum Glucose 184 H 74-106 mg/dL Problem List Vaginal bleeding. History of uterine fibroids. Questionable uterine mass. Diabetes mellitus. Right BKA. 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 Morbid obesity. Primary hypertension. 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 Assessment/Plan Continued all current supportive medical care. Dilaudid and Ford for pain management. DVT prophylactics. IV antibiotics as ordered. Warfarin per protocol. Additional plan as per the hospital course. Dietary Evaluation Review Recommendations by RD: Dietary education by RD Comments: 1) Add cardiac restriction to 45g CCHO diet 2) Collect HbA1c 3) Refer to outpatient RD/[facility] for weight management 4) Follow-up with cardiology and gastroenterology 5) Continue to monitor I&O, labs, and skin integrity Expected Outcomes/Goals: 1) appetite and labs to improve 2) gradual wt loss 3) f/u in 3-5 days Plan discussed with: Patient CASSIE HILL MD Feb 25, 2025 00:03
== END 2025-02-24 14:00 | disposition home or self-care (01) | DRG 720 ==
LOC: EDBD 08:52 → ER 08:59 → OVERFLOW 13:17 → WEST WING 02-07 16:00 → TELE-WESTW 02-08 01:16
PROVIDERS: ADMIT Nurse Practitioner Acute Care; ATTEND Nurse Practitioner Acute Care
DX: A41.9 Sepsis, unspecified organism (principal); R65.21 Severe sepsis with septic shock; J96.01 Acute respiratory failure with hypoxia; Z68.43 Body mass index [BMI] 50.0-59.9, adult; R71.0 Precipitous drop in hematocrit; N39.0 Urinary tract infection, site not specified; I11.0 Hypertensive heart disease with heart failure; E11.9 Type 2 diabetes mellitus without complications; J45.909 Unspecified asthma, uncomplicated; F32.A Depression, unspecified; Z95.2 Presence of prosthetic heart valve; I50.9 Heart failure, unspecified; E66.01 Morbid (severe) obesity due to excess calories; E66.813 Obesity, class 3; R19.00 Intra-abdominal and pelvic swelling, mass and lump, unspecified site; N85.6 Intrauterine synechiae; F41.9 Anxiety disorder, unspecified; D25.9 Leiomyoma of uterus, unspecified; N13.5 Crossing vessel and stricture of ureter without hydronephrosis; N93.9 Abnormal uterine and vaginal bleeding, unspecified; Z79.899 Other long term (current) drug therapy; Z89.511 Acquired absence of right leg below knee; Z90.49 Acquired absence of other specified parts of digestive tract
CPT/HCPCS: 36415; 71045; 74176; 76830; 76856; 78707; 80048; 80053; 80202; 81001; 81025; 82565; 82962; 83036; 83605; 83880; 84484; 85007; 85014; 85018; 85025; 85027; 85610; 85730; 86304; 87040; 87081; 87086; 93005; 96361; 96365; 96375; 99291; 99292; G0378; J1815; J1885; J2405; J2543; J3490